=== PATIENT | female | born 1965 | race Caucasian/White ===

== ENCOUNTER → 2020-06-08 | Outpatient (CLI) | payer MEDICARE ==
[2020-06-08 15:36] VITALS: BP 126/85; PULSE 102; RESP 18; TEMP 97.8; BMI 41.3
--- NOTE | 2020-06-08 15:45 | P.HPBAR ---
Bariatric H&P - History & Physicial H&P Date: 06/08/20 History & Physicial: Visit/CC: initial visit Patient initial contact: Initial weight: Initial weight in pounds: Height: 5 ft 4 iner Initial BMI: Last weight: Current weight: 109.134 kg Current weight in pounds: 240.60 Current BMI: 41.3 [place] body weight (based on NIH guidelines): 54.431 kg Excess body weight loss: The patient is a 54 year-old F who presents for Bariatric Assessment. DATE OF SERVICE: 06/08/2020 REASON FOR CONSULTATION: Initial bariatric evaluation. HISTORY OF PRESENT ILLNESS: Carolyn Farrell is a 54-year-old female who comes with morbid obesity. She has gained most of her weight in last 7 years. Since her hyperparathyroidism, she had gained weight. She reports undergoing physical trauma causing her weight gain. She reports being a size 7 in the past. She has fluctuating weight loss. Her highest weight is present, 250 pounds. She has his prescriptions for weight loss including Adipex with her doctor. She had side effects of palpitation with the medication. Her mother, father, and brother are all over 400+ pounds. She denies personal or family history of stomach or esophageal cancer. She had her gallbladder removed. She denies severe gastroesophageal reflux disease. She reports as a result of her weight gain she had lower back, bilateral hip pain, and bilateral knee pain. She sees a [place] urologist for her chronic pain needs. She denies past history of DVT and is thrombosis. She has easy bruising. She smokes occasionally cigarettes. She is looking into the sleeve gastrectomy. She presents first time in consultation for surgical weight loss options. At height of 5 feet 4 inches, her ideal body weight is 144 pounds. She comes in 250 pounds, BMI 41.3. She is 96 pounds overweight. PAST MEDICAL HISTORY: 1. Morbid obesity due to excess calories 2. Body mass index of 41.3, initial 3. Hypothyroidism 4. Depressive disorder 5. Osteoarthritis of the lower back 6. Osteoarthritis bilateral hips 7. Osteoarthritis bilateral knees PAST SURGICAL HISTORY: 1. Cholecystectomy 2. Heart catheterization 3. Hysterectomy 4. Tonsillectomy 5. Laminectomy HOME MEDICATIONS: Home Medications Medication Instructions Recorded Confirmed DULoxetine HCL [Cymbalta] 60 mg PO DAILY 06/08/20 06/08/20 Levothyroxine Sodium [Synthroid] 112 mcg PO DAILY 06/08/20 06/08/20 traMADol HCl [Ultram] 50 mg PO Q6HR PRN 06/08/20 06/08/20 ALLERGIES: Allergies Allergy/AdvReac Type Severity Reaction Status Date / Time Penicillins Allergy Rash/Hives Verified 06/08/20 15:27 SOCIAL HISTORY: Past tobacco use. FAMILY HISTORY: No family history of ulcerative colitis disease or Crohn's disease. Family history of morbid obesity. No lupus in the family. No reports of stomach or esophageal cancer. REVIEW OF ORGAN SYSTEMS: CONSTITUTIONAL: HEENT: Denies any active troubles with vision or hearing. ENDOCRINE: Denies diabetes. Has hypothyroidism. CARDIOVASCULAR: Past reports of palpitations or heart attacks or chest pain. Has hypertensive heart disease. RESPIRATORY: Has daytime somnolence. Has asthma. Has chronic obstructive pulmo nary disease. GASTROINTESTINAL: Denies any bright red blood per rectum. No diarrhea. No constipation. GENITOURINARY: Denies bladder urgency. No recent blood in urine MUSCULOSKELETAL: Has lower back pain and joint pain. Has osteoarthritis of the knees. NEURO: No headaches. No seizure disorders. Has neuropathy. PSYCH: Has depression. No suicidal ideation. RHEUMATOLOGIC: No lupus. No rheumatoid arthritis. HEMATOLOGIC: Denies any abnormal bleeding or bruising. SKIN: No rash. No skin cancer. PHYSICAL EXAM: VITAL SIGNS: Height 5 foot 4 inches, weight 240 pounds. BMI 41.3 Vital Signs Temp 97.8 F 06/08/20 15:26 Pulse 102 H 06/08/20 15:26 Resp 18 06/08/20 15:26 BP 126/85 06/08/20 15:26 Pulse Ox GENERAL: Well-developed in no acute distress. HEENT: No scleral icterus. Extraocular movements grossly intact. Hears conversational speech. No nasal drainage. NECK: Supple without lymphadenopathy. CHEST: Nonlabored respirations with equal bilateral excursions. CARDIOVASCULAR: Tachycardic. Distal 2+ pulses. ABDOMEN: Obese, soft, nontender, nondistended. MUSCULOSKELETAL: No clubbing, cyanosis. NEURO: No focal or lateralizing signs. Cranial nerves 2 through 12 grossly within normal limits. PSYCH: Appropriate affect. Alert and oriented to person, place and time. SKIN: Good skin turgor. Well perfused. ASSESSMENT: 1. Morbid obesity due to excess calories 2. Body mass index of 41.3, initial 3. Hypothyroidism 4. Depressive disorder 5. Osteoarthritis of the lower back 6. Osteoarthritis bilateral hips 7. Osteoarthritis bilateral knees PLAN: 1. Surgical options including a band, gastric bypass, sleeve gastrectomy were described in detail. Alternatives such as gastric balloon including duodenal switch were described. She is looking into the sleeve gastrectomy. 2. The [place] bariatric surgical collaborative data and outcomes calculator were described with surgical options. 3. Recommend a bariatric metabolic panel to evaluate for micro- including macronutrient deficiencies. 4. For any history of daytime somnolence, recommend evaluation and treatment for sleep apnea. 5. Dietary surveillance and counseling was reviewed. Increased protein intake over 65 grams daily advised. 6. Will need cardiac risk assessment. 7. Recommend medical risk assessment. 8. Psych assessment per insurance guidelines. 9. Recommend upper endoscopy. 10. Recommend 12-lead EKG. 11. She is advised to be seen for her joint pain and arthritis of the spine. 12. Recommend urine nicotine testing metabolites 13. Patient is elevated risk for complications including with upper endoscopy and weight loss surgery for pre-existing history of active tobacco abuse disorder Past Medical History Past Medical History: Atrial Flutter, GERD/Reflux, Osteoarthritis (OA), Thyroid Disorder Additional Past Medical History / Comment(s): a-flutter d/t thyroid issues; buristis, spinal arthritis; DDD; hypothroidism History of Any Multi-Drug Resistant Organisms: None Reported Past Surgical History: Back Surgery, Cholecystectomy, Heart Catheterization, Hysterectomy, Orthopedic Surgery, Tonsillectomy Additional Past Surgical History / Comment(s): laminectomy 1991; heart cath Past Anesthesia/Blood Transfusion Reactions: No Reported Reaction Past Psychological History: No Psychological Hx Reported Additional Psychological History / Comment(s): no issues since thyroid issues Smoking Status: Former smoker Past Alcohol Use History: Rare Past Drug Use History: None Reported Surgical - Exam Vital Signs Temp Pulse Resp BP 97.8 F 102 H 18 126/85 06/08/20 15:26 06/08/20 15:26 06/08/20 15:26 06/08/20 15:26 Results - Labs 06/08/20 16:12 06/08/20 16:12 Bariatric Checklist Checklist: Plan: Checklist: EGD: 1. Hiatal hernia: 2. H. Pylori: HgbA1c: Vitamin D: Smoking: Primary care physician referral: Dr. Nicholson Psychiatry clearance: Cardiology clearance: Sleep study: Diet journal: VTE risk score: VTE risk level: Rehab needs at discharge:
[2020-06-08 16:41] LABS: HCT 40.3 % (34.0-46.0); HGB 13.5 gm/dL (11.4-16.0); MCH 30.5 pg (25.0-35.0); MCHC 33.6 g/dL (31.0-37.0); MCV 90.7 fL (80.0-100.0); Mean Platelet Volume 7.6; Platelet Count 310 k/uL (150-450); RBC 4.44 m/uL (3.80-5.40); WBC 11.3 k/uL (3.8-10.6)
[2020-06-09 00:17] LABS: INR 0.86 (0.90-1.11); Partial Thromboplastin Time 25.4 sec (23.5-31.0); Prothrombin Time 9.5 sec (9.9-11.9)
[2020-06-09 03:48] LABS: % Iron Saturation 27.13 (12.00-45.00); African American GFR (CKD) 115.5 (60.0-200.0); Albumin 3.7 g/dL (3.80-4.90); Albumin/Globulin Ratio 1.54 (1.60-3.17); Anion Gap 6.6 mmol/L (4.00-12.00); BUN/Creat Ratio 18.57 Ratio (12.00-20.00); Calcium 9.6 mg/dL (8.7-10.3); Carbon Dioxide 28.4 mmol/L (21.6-31.8); Chol/HDL Ratio 2.02; Globulin 2.4 g/dL (1.6-3.3); Magnesium 1.9 mg/dL (1.5-2.4); Non-African American GFR(CKD) 99.6 (60.0-200.0); Phosphorus 4.1 mg/dL (2.4-5.1); Potassium 4.3 mmol/L (3.5-5.5); Total Bilirubin 0.3 mg/dL (0.3-1.2); Total Protein 6.1 g/dL (6.2-8.2)
[2020-06-09 03:58] LABS: Folate, Serum 5.8 ng/mL
[2020-06-09 04:02] LABS: Ferritin 11.4 ng/mL (10.0-291.0)
[2020-06-09 11:18] LABS: Hemoglobin A1C 5.3 % (4.0-6.0)
[2020-06-09 15:47] LABS: Zinc, Serum 45 ug/dL (60-130)
[2020-06-10 13:58] LABS: Vit B1(Thiamine) 68 ug/L (38-122)
[2020-06-10 14:11] LABS: Vitamin A 46 ug/dL (38-106)
[2020-06-13 18:29] LABS: Selenium 131 mcg/L (63-160)
== END | disposition home or self-care (01) ==
LOC: EDBD 14:30 → BARWHC3 14:38
PROVIDERS: ATTEND Surgery Plastic and Reconstructive Surgery
DX: E66.01 Morbid (severe) obesity due to excess calories (principal); E03.9 Hypothyroidism, unspecified; F32.9 Major depressive disorder, single episode, unspecified; M47.9 Spondylosis, unspecified; M17.0 Bilateral primary osteoarthritis of knee; M16.0 Bilateral primary osteoarthritis of hip; D50.8 Other iron deficiency anemias; K90.89 Other intestinal malabsorption; E55.9 Vitamin D deficiency, unspecified; K74.1 Hepatic sclerosis; N19 Unspecified kidney failure; K50.90 Crohn's disease, unspecified, without complications; Z68.41 Body mass index [BMI] 40.0-44.9, adult; Z88.0 Allergy status to penicillin; Z79.890 Hormone replacement therapy; Z79.899 Other long term (current) drug therapy; Z90.49 Acquired absence of other specified parts of digestive tract; Z90.710 Acquired absence of both cervix and uterus
CPT/HCPCS: 84255; 84134; 84425; 80061; 80053; 82607; 82728; 82525; 82746; 83540; 83550; 83735; 84100; 84443; 84590; 84630; 85027; 85610; 85730; 82306; 83970; 83036; 93005; 36415; G0463; 99203

== ENCOUNTER 2020-12-21 19:27 | Inpatient (IN) | payer MEDICARE ==
[2020-12-21] MEDS ORDERED: MORPHINE SULFATE 4 MG/ML SYRINGE IVP STA (19:53)
--- NOTE | 2020-12-21 20:14 | ED ---
General Adult HPI - General Source: patient, RN notes reviewed Mode of arrival: ambulatory Limitations: no limitations <Sergei Wiseman - Last Filed: 12/21/20 21:43> <Aric Santos - Last Filed: 12/21/20 23:47> - General Chief complaint: Skin/Abscess/Foreign Body Stated complaint: Infection,Transfer from [facility] Time Seen by Provider: 12/21/20 19:44 - History of Present Illness Initial comments: Patient is a 54-year-old female that presents to emergency department via transfer from [facility] for a right breast cellulitis. She notes that they gave her IV antibiotics and pain medication but it is still extremely painful. She notes that she did have breast surgery approximately 30 years ago for reduction. She notes that it feels like the bump is pushing on the scar tissue increase the pain. She'll the pain is approximately 10 out of 10 with no relief. She denied any other issues or complaints at this time. She was otherwise a well-appearing 55-year-old female no apparent distress or pain. She denied any chest pain first breath headache nausea vomiting diarrhea constipation fever fatigue chills. (Sergei Wiseman) - Related Data Home Medications Medication Instructions Recorded Confirmed DULoxetine HCL [Cymbalta] 60 mg PO BID 06/08/20 12/21/20 Levothyroxine Sodium [Synthroid] 112 mcg PO DAILY 06/08/20 12/21/20 Ibuprofen 800 mg PO Q8H PRN 12/21/20 12/21/20 Metoprolol Succinate (ER) [Toprol 25 mg PO DAILY 12/21/20 12/21/20 Xl] Sulfamethoxazole/Trimethoprim 1 tab PO BID 12/21/20 12/21/20 [Sulfamethoxazole-Tmp Ds Tablet] Allergies Allergy/AdvReac Type Severity Reaction Status Date / Time Penicillins Allergy Rash/Hives Verified 12/21/20 20:02 Review of Systems ROS Other: All systems not noted in ROS Statement are negative. <Sergei Wiseman - Last Filed: 12/21/20 21:43> ROS Other: All systems not noted in ROS Statement are negative. <Aric Santos - Last Filed: 12/21/20 23:47> ROS Statement: Those systems with pertinent positive or pertinent negative responses have been documented in the HPI. Past Medical History Past Medical History: Atrial Flutter, GERD/Reflux, Osteoarthritis (OA), Thyroid Disorder Additional Past Medical History / Comment(s): a-flutter d/t thyroid issues; buristis, spinal arthritis; DDD; hypothroidism History of Any Multi-Drug Resistant Organisms: None Reported Past Surgical History: Back Surgery, Cholecystectomy, Heart Catheterization, Hysterectomy, Orthopedic Surgery, Tonsillectomy Additional Past Surgical History / Comment(s): laminectomy 1991; heart cath Past Anesthesia/Blood Transfusion Reactions: No Reported Reaction Past Psychological History: No Psychological Hx Reported Smoking Status: Light tobacco smoker Past Alcohol Use History: Rare Past Drug Use History: None Reported <Sergei Wiseman - Last Filed: 12/21/20 21:43> General Exam Limitations: no limitations General appearance: alert, in no apparent distress, obese Head exam: Present: atraumatic, normocephalic, normal inspection Eye exam: Present: normal appearance, PERRL, EOMI. Absent: scleral icterus, conjunctival injection, periorbital swelling Neck exam: Present: normal inspection Respiratory exam: Present: normal lung sounds bilaterally. Absent: respiratory distress, wheezes, rales, rhonchi, stridor Cardiovascular Exam: Present: regular rate, normal rhythm, normal heart sounds. Absent: systolic murmur, diastolic murmur, rubs, gallop, clicks Extremities exam: Present: normal inspection, full ROM, normal capillary refill. Absent: tenderness, pedal edema, joint swelling, calf tenderness Neurological exam: Present: alert, oriented X3 Psychiatric exam: Present: normal affect, normal mood Skin exam: Present: warm, dry, intact, normal color, erythema (Inferior lateral right breast). Absent: rash Expanded Type of lesion: Present: abscess (Inferior right breast in old surgical scar, tender, erythematous. Measuring approximately 3-4 inches.) <Sergei Wiseman - Last Filed: 12/21/20 21:43> Course Vital Signs 12/21/20 12/21/20 19:37 23:00 Temperature 98.5 F 98.4 F Pulse Rate 75 70 Respiratory 18 18 Rate Blood Pressure 152/78 112/77 O2 Sat by Pulse 96 97 Oximetry Medical Decision Making - Radiology Data Radiology results: report reviewed, image reviewed <Sergei Wiseman - Last Filed: 12/21/20 21:43> <Aric Santos - Last Filed: 12/21/20 23:47> - Medical Decision Making 55-year-old female with a right breast cellulitis/abscess. 4 mg morphine, ultrasound of the right breast ordered. Ultrasound shows a 3 cm fluid collection in the right breast at 6 o'clock position. 1 mg of Dilaudid ordered for continuing pain. Case discussed with Dr. Santos, patient will be admitted for IV antibiotics and surgical consult. Dr. Jackson was consulted and will except the admit with Dr. Ramez Quiroz on consult. Vancomycin ordered. (Sergei Wiseman) The patient's ultrasound showed a 3 cm fluid collection in the right breast at 6 o'clock position with vascularity, and therefore I&D will be deferred until evaluation by surgery. Patient will be started on IV antibiotics and admitted to the hospital. (Aric Santos) - Radiology Data 3 cm complex area within the right breast at 6 o'clock position, compatible with abscess in the appropriate clinical setting. Recommend follow-up after treatment/posterior is to document resolution and exclude any underlying etiology. (Sergei Wiseman) Disposition Is patient prescribed a controlled substance at d/c from ED?: No Time of Disposition: 21:48 <Sergei Wiseman - Last Filed: 12/21/20 21:43> <Aric Santos - Last Filed: 12/21/20 23:47> Clinical Impression: Abscess of right breast Disposition: ADMITTED IP TO THIS HOSP Condition: Stable
[2020-12-21] MEDS ORDERED: PANTOPRAZOLE 40 MG/10 ML VIAL IVP STA (20:39)
--- NOTE | 2020-12-21 21:18 | USB ---
EXAMINATION TYPE: US breast limited RT DATE OF EXAM: 12/21/2020 COMPARISON: NONE CLINICAL HISTORY: pain/cellulitis. Yellowish palpable lump right breast. Patient states she drained p us from the area earlier in the week. At the patient's palpable area, right breast 6:00B, there is a complex, hypoechoic area visualized me asuring 3.2 x 2.3 x 3.0 cm with vascularity. IMPRESSION: 3 cm complex area within the right breast at 6:00 position, compatible with abscess in the appropriat e clinical setting. Recommend follow-up after treatment/post drainage to document resolution and excl ude any underlying etiology.
[2020-12-21] MEDS ORDERED: HYDROmorphone 1 MG/ML 1 ML SYRINGE IVP STA (21:40)
[2020-12-21] MEDS ORDERED: VANCOMYCIN IV PER PHARMACY 1 EACH MISC MISCELLANE PRN (21:40)
[2020-12-21] MEDS ORDERED: SODIUM CHLORIDE 0.9% 1,000 ML IV STA (21:41)
[2020-12-21] MEDS ORDERED: NALOXONE 0.4 MG/ML 1 ML VIAL IV PRN (21:41)
[2020-12-21] MEDS ORDERED: VANCOMYCIN 1,750 MG in SODIUM CHLORIDE 0.9% 500 ML 500 ML IVPB ONE (22:30)
[2020-12-22] MEDS: HYDROmorphone 1 MG/ML 1 ML SYRINGE IVP PRN ×6 (01:01→18:05)
[2020-12-22] MEDS ORDERED: diphenhydrAMINE 25 MG CAP PO STA (01:36)
[2020-12-22] MEDS ORDERED: ACETAMINOPHEN TAB 325 MG TAB PO STA (04:23)
[2020-12-22] MEDS ORDERED: VANCOMYCIN 1,750 MG in SODIUM CHLORIDE 0.9% 500 ML 500 ML IVPB SCH (06:00)
[2020-12-22 08:38] LABS: African American GFR (CKD) >90 (>60 ml/min/1.73 sqM); Non-African American GFR(CKD) >90 (>60 ml/min/1.73 sqM)
[2020-12-22] MEDS ORDERED: PANTOPRAZOLE 40 MG/10 ML VIAL IV SCH (09:00)
[2020-12-22] MEDS: SODIUM CHLORIDE 0.9% 1,000 ML IV SCH ×4 (09:33→19:58)
[2020-12-22] MEDS: METOPROLOL SUCCINATE (ER) 25 MG TAB.ER.24H PO SCH (11:19)
[2020-12-22] MEDS: ENOXAPARIN 40 MG/0.4 ML SYRINGE SQ SCH (11:19)
[2020-12-22] MEDS: DULoxetine HCL 60 MG CAPSULE.DR PO SCH ×2 (11:19→19:57)
[2020-12-22] MEDS: LEVOTHYROXINE 112 MCG TAB PO SCH (11:20)
[2020-12-22] MEDS ORDERED: CALCIUM CARBONATE 500 MG CHEWABLE PO PRN (13:29)
[2020-12-22] MEDS ORDERED: ONDANSETRON 4 MG/2 ML VIAL IVP PRN (13:29)
[2020-12-22] MEDS ORDERED: MELATONIN 3 MG TABLET PO PRN (13:29)
[2020-12-22] MEDS ORDERED: LACTULOSE 20 GM/30 ML CUP PO PRN (13:29)
--- NOTE | 2020-12-22 14:33 | P.GSHP ---
History of Present Illness H&P Date: 12/22/20 Chief Complaint: Abscess right breast Carolyn is a 55-year-old white female who states several days ago she noticed a pimple like area in the inferior aspect of her right breast. This became increasingly tender and reddened with increased erythema over the inferior aspec t of the breast. This has not drained at all. The patient did have some fever and chills. The patient was started on outpatient Bactrim without any resolution. She was seen in [place] and sent to our emergency room. The patient did have a reduction mammoplasty at the age of 37. The patient has not had a mammogram for approximately 2 years. Patient had an ultrasound performed and 98 this revealed a 3 cm complex area within the right breast at the 6 o'clock position Caffeine: 2 cups per day Nicotine: Occasional Chocolate: Occasional Past surgical history: Breast reduction Cholecystectomy Laminectomy Tonsillectomy Hysterectomy Medical history: Arthritis Hypothyroid Hormonal history: Menarche: 14 , 3, patient had twins, and 10 age of first 24, control pills: Short time Menopause: Hysterectomy at 30 Social history: Nicotine: Negative Alcohol: Negative Marijuana: Negative - Constitutional Constitutional: Reports chills - EENT Eyes: denies blurred vision, denies pain Ears: deny: decreased hearing - Breasts Breasts: bilateral: as per HPI - Cardiovascular Cardiovascular: Denies chest pain, Denies shortness of breath - Respiratory Respiratory: Denies cough, Denies 7 - Gastrointestinal Gastrointestinal: Denies abdominal pain, Denies diarrhea, Denies nausea, Denies vomiting - Genitourinary (Female) Genitourinary: Denies dysuria, Denies hematuria - Menstruation Menstruation: Reports post hysterectomy - Musculoskeletal Comment: Arthritis - Integumentary Comment: Cellulitis right breast with abscess and inferior aspect of right breast - Neurological Neurological: Denies numbness, Denies weakness - Psychiatric Psychiatric: Denies anxiety, Denies depression - Hematologic/Lymphatic Comment: Negative Past Medical History Past Medical History: Atrial Flutter, GERD/Reflux, Osteoarthritis (OA), Thyroid Disorder Additional Past Medical History / Comment(s): a-flutter d/t thyroid issues; buristis, spinal arthritis; DDD; hypothroidism History of Any Multi-Drug Resistant Organisms: None Reported Past Surgical History: Back Surgery, Cholecystectomy, Heart Catheterization, Hysterectomy, Orthopedic Surgery, Tonsillectomy Additional Past Surgical History / Comment(s): laminectomy 1991; heart cath Past Anesthesia/Blood Transfusion Reactions: No Reported Reaction Past Psychological History: No Psychological Hx Reported Smoking Status: Light tobacco smoker Past Alcohol Use History: Rare Past Drug Use History: None Reported Medications and Allergies Home Medications Medication Instructions Recorded Confirmed Type DULoxetine HCL [Cymbalta] 60 mg PO BID 06/08/20 12/21/20 History Levothyroxine Sodium [Synthroid] 112 mcg PO DAILY 06/08/20 12/21/20 History Ibuprofen 800 mg PO Q8H PRN 12/21/20 12/21/20 History Metoprolol Succinate (ER) [Toprol 25 mg PO DAILY 12/21/20 12/21/20 History Xl] Sulfamethoxazole/Trimethoprim 1 tab PO BID 12/21/20 12/21/20 History [Sulfamethoxazole-Tmp Ds Tablet] Allergies Allergy/AdvReac Type Severity Reaction Status Date / Time Penicillins Allergy Rash/Hives Verified 12/21/20 20:02 Surgical - Exam Vital Signs Temp Pulse Resp BP Pulse Ox 98.5 F 75 18 152/78 96 12/21/20 19:37 12/21/20 19:37 12/21/20 19:37 12/21/20 19:37 12/21/20 19:37 BMI 41.2 - General moderate distress - Eyes normal ocular movement - ENT no hearing loss, no congestion - Neck no masses - Respiratory normal respiratory effort, clear to auscultation - Cardiovascular Heart Sounds: normal: S1, S2 - Abdomen Abdomen: soft, non tender, no guarding, no rigid, no rebound - Integumentary Cellulitis inferior aspect right breast - Neurologic no disoriented, no combative - Psychiatric oriented to time, oriented to person, oriented to place, speech is normal, memory intact Breast examination: Patient status post reduction mammoplasty bilaterally Inspection: Cellulitis right breast inferior aspect Palpation: Right breast: Patient is noted to have marked tenderness and cellulitis of the inferior aspect of the breast, there is fluctuance in the inferior aspect consistent with an abscess Right axilla: No adenopathy of concern Left breast: Well-healed scars from prior reduction mammoplasty no dominant masses or nodules of concern Left axilla: No adenopathy of concern Results - Labs 12/22/20 07:44 Diabetes panel 12/22/20 Range/Units 07:44 Creatinine 0.58 (0.52-1.04) mg/dL Pituitary panel 12/22/20 Range/Units 07:44 Creatinine 0.58 (0.52-1.04) mg/dL Adrenal panel 12/22/20 Range/Units 07:44 Creatinine 0.58 (0.52-1.04) mg/dL Assessment and Plan Assessment: Impression: Abscess/cellulitis right breast Patient has recently eaten Plan: Incision and drainage of abscess right breast Medical management of medical conditions Risks and benefits of incision and drainage are discussed with the patient. She understands and wishes to proceed. Her ultrasound will be reviewed with radiology to see if this could be drained percutaneously.
[2020-12-22] MEDS ORDERED: ACETAMINOPHEN TAB 325 MG TAB PO PRN (14:36)
--- NOTE | 2020-12-22 14:52 | P.HPIM ---
History of Present Illness H&P Date: 12/22/20 Chief Complaint: Right breast infection History of presenting complaint: This is a pleasant 55-year-old patient of Dr. Nii Best. Chronic stable medical conditions include atrial flutter, GERD, osteoarthritis, hypothyroid, DJD. Patient has history of bilateral reduction mammoplasty many years ago. About a week ago patient noticed a bump below the right breast. She squeezed at it broke. It progressed to become more tender and red. She finally presented to the ER and was given Bactrim. Symptoms do not improve. Yesterday she went down to see her family doctor, Dr. Best. She been having chills and some nausea. Very tender. He sent her down to the ER. Patient does not remember any local trauma. Does not wear bra. Review of systems: GEN.: Chills EYES: None HEENT: None NECK: None RESPIRATORY: None CARDIOVASCULAR: None GASTROINTESTINAL: None GENITOURINARY: None MUSCULOSKELETAL: Joint pains LYMPHATICS: None HEMATOLOGICAL: None PSYCHIATRY: None NEUROLOGICAL: None Past medical history to include: Atrial flutter, GERD, osteoarthritis, hypothyroid, spinal arthritis, back surgery with laminectomy 1991 Social history: Occasional smoking. Alcohol rarely. 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 Family history: Reviewed, noncontributory to presentation Physical examination: VITAL SIGNS: 98, 100, 22, 108/54, 98% on room air GENERAL: BMI 41.2, laying in bed, slightly uncomfortable. EYES: Pupils equal. Conjunctiva normal. HEENT: External appearance of nose and ears normal, oral cavity grossly normal. NECK: JVD not raised; masses not palpable. HEART: First and second heart sounds are normal; no edema. BREAST: There is area of fluctuation at the inferior part of the right breast. Very tender. Surrounding area of redness extending up towards and on both the sides. LUNGS: Respiratory rate normal; clear to auscultation. ABDOMEN: Soft, nontender, liver spleen not palpable, no masses palpable. PSYCH: Alert and oriented x3; mood and affect normal. NEUROLOGICAL: Cranial nerves grossly intact; no facial asymmetry, power and se nsation grossly intact. LYMPHATICS: No lymph nodes palpable in the axilla and neck INVESTIGATIONS, reviewed in the clinical context: Creatinine 0.58 Assessment and plan: -Acute right breast abscess with the area of fluctuation. In the inferior part. Has been feeling outpatient treatment. With secondary surrounding cellulitis. This will need I&D. Dr. Monterroso was consulted. Patient did receive IV vancomycin the ER last night and had some epidural evidence of red man syndrome. Given no risk factors daily for MRSA the patient is being changed over to IV Ancef. ID consulted. -Hypothyroid Synthroid 112 g daily -Anxiety Cymbalta 60 mg twice a day -Paroxysmal atrial flutter Toprol-XL 25 mg daily Care was discussed with the patient. Local ice pack is given. Also Dilaudid when necessary. Naproxen 250 mg every 8. Consultation to Dr. Monterroso. ID. Lovenox for DVT prophylaxis. Patient will need I&D. Past Medical History Past Medical History: Atrial Flutter, GERD/Reflux, Osteoarthritis (OA), Thyroid Disorder Additional Past Medical History / Comment(s): a-flutter d/t thyroid issues; buristis, spinal arthritis; DDD; hypothroidism History of Any Multi-Drug Resistant Organisms: None Reported Past Surgical History: Back Surgery, Cholecystectomy, Heart Catheterization, Hysterectomy, Orthopedic Surgery, Tonsillectomy Additional Past Surgical History / Comment(s): laminectomy 1991; heart cath Past Anesthesia/Blood Transfusion Reactions: No Reported Reaction Past Psychological History: No Psychological Hx Reported Smoking Status: Light tobacco smoker Past Alcohol Use History: Rare Past Drug Use History: None Reported Medications and Allergies Home Medications Medication Instructions Recorded Confirmed Type DULoxetine HCL [Cymbalta] 60 mg PO BID 06/08/20 12/21/20 History Levothyroxine Sodium [Synthroid] 112 mcg PO DAILY 06/08/20 12/21/20 History Ibuprofen 800 mg PO Q8H PRN 12/21/20 12/21/20 History Metoprolol Succinate (ER) [Toprol 25 mg PO DAILY 12/21/20 12/21/20 History Xl] Sulfamethoxazole/Trimethoprim 1 tab PO BID 12/21/20 12/21/20 History [Sulfamethoxazole-Tmp Ds Tablet] Allergies Allergy/AdvReac Type Severity Reaction Status Date / Time Penicillins Allergy Rash/Hives Verified 12/21/20 20:02 Physical Exam Vitals: Vital Signs Temp Pulse Resp BP Pulse Ox 12/22/20 10:05 98.6 F 82 18 97/63 100 12/22/20 07:00 98 F 100 22 108/54 98 12/22/20 06:00 77 20 105/64 98 12/22/20 04:00 87 22 117/70 100 12/22/20 03:00 98.2 F 73 18 121/71 97 12/22/20 01:00 73 18 96/65 100 12/21/20 23:00 98.4 F 70 18 112/77 97 12/21/20 19:37 98.5 F 75 18 152/78 96 Intake and Output 12/21/20 12/22/20 12/22/20 22:59 06:59 14:59 Other: Weight 108.862 kg Results CBC & Chem 7: 12/22/20 07:44
[2020-12-22] MEDS: NAPROXEN 250 MG TAB PO SCH ×2 (15:50→19:56)
[2020-12-22] MEDS: LORazepam 0.5 MG TAB PO PRN (19:57)
--- NOTE | 2020-12-22 22:04 | P.CONS ---
History of Present Illness - Reason for Consult Consult date: 12/22/20 right breast abscess Requesting physician: Ming Jackson - Chief Complaint right breast pain and redness x 1 week - History of Present Illness History of present illness : Patient is 55 female presenting to the ER last night for evaluation of right breast pain swelling and redness apparently the patient started having a problem with the right breast about a week ago when the patient noticed there was a small bump on the right breast area the patient squeeze it broke afterwards the patient noticed to having increasing swelling redness and pain to the right breast area patient was seen at [facility] and was treated with Bactrim however the patient did not have any improvement patient went to see her primary care physician yesterday who directed the patie nt to go back to the ER the patient went to [facility] she was subsequently transferred to [facility] for further evaluation on arrival to this ER the patient was afebrile patient did have a normal creatinine ultrasound of the breast has been done which did shows 3 cm complex area right breast at 6 o'clock position patient was given vancomycin last time the patient did develop "red man" syndrome NSAID was discontinued and ID was consulted for further management of antibiotic therapy patient has been evaluated by general surgery with a plan for drainage of this abscess in the morning Review of system: CONSTITUTIONAL: Positive for weakness along with the fever. EYES: No complaint. ENT: No complaint. RESPIRATORY: No complaint. CARDIOVASCULAR: No complaint. GENITOURINARY: No complaint. GASTROINTESTINAL: No complaint. MUSCULOSKELETAL: No complaint. INTEGUMENTARY: As per history of present illness. PSYCHOLOGIC: No complaint. ENDOCRINE: No complaint. NEUROLOGIC: No complaint. Past medical history : Reviewed, documented below Past surgical history : Reviewed, documented below Social history: Reviewed, documented below Medications: Reviewed, as documented below EXAMINATION: Vital sigans= Reviewed and documented below GENERAL DESCRIPTION: Middle-aged female lying in bed, no distress. No tachypnea or accessory muscle of respiration use. HEENT: Shows Pallor , no scleral icterus. Oral mucous membrane is dry. NECK: Trachea central, no thyromegaly. LUNGS: Unlabored breathing. Clear to auscultation anteriorly. No wheeze or crackle. HEART: S1, S2, regular rate and rhythm. ABDOMEN: Soft, no tenderness , guarding or rigidity EXTREMITIES: No edema of feet. SKIN: No rash, no masses palpable. Right breast did have swelling redness and tenderness no open wound or any drainage NEUROLOGICAL: The patient is awake, alert, oriented x3, mood and affect normal. LABS AND RADIOLOGY: Reviewed results see below Assessment : 1-Patient with right breast abscess and cellulitis in this patient has failed outpatient oral Bactrim DS therapy and seem to have a "red man" syndrome with vancomycin infused during the ER in this patient currently do not have any risk factor for MRSA infection as has not been exposed with antibiotic and could be dealing with a streptococcal or an MSSA strain 2-patient with a penicillin allergy that would limit the number of antibiotics safe to use Plan: 1-await surgical I&D and deep culture 2-cefazolin 2 g every 8 hours We will follow on clinical condition and cultures to further adjust medication if needed Thank you for this consultation we will follow the patient along with you Past Medical History Past Medical History: Atrial Flutter, GERD/Reflux, Osteoarthritis (OA), Thyroid Disorder Additional Past Medical History / Comment(s): a-flutter d/t thyroid issues; buristis, spinal arthritis; DDD; hypothroidism History of Any Multi-Drug Resistant Organisms: None Reported Past Surgical History: Back Surgery, Cholecystectomy, Heart Catheterization, Hysterectomy, Orthopedic Surgery, Tonsillectomy Additional Past Surgical History / Comment(s): laminectomy 1991; heart cath Past Anesthesia/Blood Transfusion Reactions: No Reported Reaction Past Psychological History: No Psychological Hx Reported Smoking Status: Light tobacco smoker Past Alcohol Use History: Rare Past Drug Use History: None Reported Medications and Allergies Home Medications Medication Instructions Recorded Confirmed Type DULoxetine HCL [Cymbalta] 60 mg PO BID 06/08/20 12/21/20 History Levothyroxine Sodium [Synthroid] 112 mcg PO DAILY 06/08/20 12/21/20 History Ibuprofen 800 mg PO Q8H PRN 12/21/20 12/21/20 History Metoprolol Succinate (ER) [Toprol 25 mg PO DAILY 12/21/20 12/21/20 History Xl] Sulfamethoxazole/Trimethoprim 1 tab PO BID 12/21/20 12/21/20 History [Sulfamethoxazole-Tmp Ds Tablet] Allergies Allergy/AdvReac Type Severity Reaction Status Date / Time Penicillins Allergy Rash/Hives Verified 12/21/20 20:02 Physical Exam Vitals: Vital Signs Temp Pulse Resp BP Pulse Ox 12/22/20 11:27 75 18 134/84 100 12/22/20 10:05 98.6 F 82 18 97/63 100 12/22/20 07:00 98 F 100 22 108/54 98 12/22/20 06:00 77 20 105/64 98 12/22/20 04:00 87 22 117/70 100 12/22/20 03:00 98.2 F 73 18 121/71 97 12/22/20 01:00 73 18 96/65 100 12/21/20 23:00 98.4 F 70 18 112/77 97 12/21/20 19:37 98.5 F 75 18 152/78 96 Intake and Output 12/21/20 12/22/20 12/22/20 22:59 06:59 14:59 Other: Weight 108.862 kg Results CBC & Chem 7: 12/22/20 07:44
[2020-12-23] MEDS: HYDROmorphone 1 MG/ML 1 ML SYRINGE IVP PRN ×5 (00:28→23:18)
[2020-12-23] MEDS: LEVOTHYROXINE 112 MCG TAB PO SCH (05:35)
[2020-12-23] MEDS: SODIUM CHLORIDE 0.9% 1,000 ML IV SCH ×3 (05:37→19:46)
[2020-12-23] MEDS: METOPROLOL SUCCINATE (ER) 25 MG TAB.ER.24H PO SCH (08:29)
[2020-12-23] MEDS: PANTOPRAZOLE 40 MG TABLET PO SCH (08:30)
[2020-12-23] MEDS: DULoxetine HCL 60 MG CAPSULE.DR PO SCH ×2 (08:30→19:46)
[2020-12-23] MEDS: ENOXAPARIN 40 MG/0.4 ML SYRINGE SQ SCH (09:26)
[2020-12-23] MEDS: NAPROXEN 250 MG TAB PO SCH ×3 (09:27→19:46)
[2020-12-23] MEDS ORDERED: IV FLUID CONTINUATION 1,000 ML IV ONE (11:22)
[2020-12-23] MEDS ORDERED: ONDANSETRON 4 MG/2 ML VIAL IVP ONE (11:34)
[2020-12-23] MEDS ORDERED: DEXAMETHASONE SOD PHOSPHATE 4 MG/ML 1 ML VIAL IVP ONE (11:35)
[2020-12-23] MEDS ORDERED: LIDOCAINE 1% INJ 10MG/ML (20 ML MDV) ONE (12:22)
[2020-12-23] MEDS ORDERED: MIDAZOLAM 2 MG/2 ML VIAL ONE (12:22)
[2020-12-23] MEDS ORDERED: SUCCINYLCHOLINE CHLORIDE 100 MG/5 ML SYR IV ONE (12:22)
[2020-12-23] MEDS ORDERED: fentaNYL (PF) 50 MCG/ML 2 ML AMP ONE (12:22)
[2020-12-23] MEDS ORDERED: PROPOFOL 10 MG/ML 20 ML VIAL IV ONE (12:22)
--- NOTE | 2020-12-23 12:53 | P.OP ---
Date of Procedure: 12/23/20 Preoperative Diagnosis: Right breast abscess Postoperative Diagnosis: Same Procedure(s) Performed: Incision and drainage of complex abscess Anesthesia: LYLY Surgeon: Jemma Monterroso Estimated Blood Loss (ml): 3 IV fluids (ml): 500 Condition: stable Disposition: floor Indications for Procedure: Abscess right breast Operative Findings: Abscess right breast approximately 15 mL of purulent drainage Description of Procedure: The patient was brought to the operating room and following induction of anesthesia the right breast was prepped and draped in a sterile fashion. An incision was made over the most dependent part of the area of fluctuance in the inferior aspect of the breast. Approximately 15 mL of purulent fluid was drained. The cavity was somewhat septated and blunt dissection was utilized to break down the septations in the cavity. The cavity was approximately 10 cm x 5 cm. The wound was well irrigated with approximately 2000 mL of 0.9 sodium chloride. The wound was then packed using iodoform gauze. The patient tolerated the procedure in stable condition.
[2020-12-23] MEDS: HYDROmorphone 0.5 MG/0.5 ML SYRINGE IVP ONE ×2 (13:13→13:20)
--- NOTE | 2020-12-23 17:25 | P.PN ---
Progress Note - Text Progress Note Date: 12/23/20 Chief Complaint: Right breast infection History of presenting complaint: This is a pleasant 55-year-old patient of Dr. Nii Best. Chronic stable medical conditions include atrial flutter, GERD, osteoarthritis, hypothyroid, DJD. Patient has history of bilateral reduction mammoplasty many years ago. About a week ago patient noticed a bump below the right breast. She squeezed at it broke. It progressed to become more tender and red. She finally presented to the ER and was given Bactrim. Symptoms do not improve. Yesterday she went down to see her family doctor, Dr. Best. She been having chills and some nausea. Very tender. He sent her down to the ER. Patient does not remember any local trauma. Does not wear bra. Admitted with right breast inferior aspect abscess with surrounding cellulitis. Started IV Ancef December 23: Saw the patient this morning. Pain present. Pending to go down to surgery. No nausea vomiting. On IV Ancef. Nothing by mouth. Review of systems: Was done for constitutional, cardiovascular, GI, pulmonary. relevant finding as above Active Medications Acetaminophen (Acetaminophen Tab 325 Mg Tab) 650 mg PO Q6HR PRN PRN Reason: Headache Calcium Carbonate/Glycine (Calcium Carbonate 500 Mg Chewable) 1,000 mg PO Q4HR PRN PRN Reason: Dyspepsia Duloxetine HCl (Duloxetine Hcl 60 Mg Capsule.) 60 mg PO BID [facility] Last Admin: 12/23/20 08:30 Dose: 60 mg Documented by: Enoxaparin Sodium (Enoxaparin 40 Mg/0.4 Ml Syringe) 40 mg SQ DAILY [facility] Last Admin: 12/23/20 09:26 Dose: Not Given Documented by: Hydromorphone HCl (Hydromorphone 1 Mg/Ml 1 Ml Syringe) 1 mg IVP Q3HR PRN PRN Reason: Severe Pain Last Admin: 12/23/20 14:32 Dose: 1 mg Documented by: Sodium Chloride (Saline 0.9%) 1,000 mls @ 130 mls/hr IV .Q7H42M [facility] Last Admin: 12/23/20 15:21 Dose: Not Given Documented by: Cefazolin Sodium 2 gm/ Sodium (Chloride) 50 mls @ 100 mls/hr IVPB Q8HR [facility] Last Admin: 12/23/20 16:12 Dose: 100 mls/hr Documented by: Lactulose (Lactulose 20 Gm/30 Ml Cup) 20 gm PO DAILY PRN PRN Reason: Constipation Levothyroxine Sodium (Levothyroxine 112 Mcg Tab) 112 mcg PO 0630 [facility] Last Admin: 12/23/20 05:35 Dose: 112 mcg Documented by: Lorazepam (Lorazepam 0.5 Mg Tab) 0.5 mg PO Q6HR PRN PRN Reason: Anxiety Last Admin: 12/22/20 19:57 Dose: 0.5 mg Documented by: Magnesium Hydroxide (Magnesium Hydroxide 2,400 Mg/10 Ml Cup) 2,400 mg PO DAILY PRN PRN Reason: Constipation Melatonin (Melatonin 3 Mg Tablet) 3 mg PO HS PRN PRN Reason: Insomnia Metoprolol Succinate (Metoprolol Succinate (Er) 25 Mg Tab.Er.24h) 25 mg PO DAILY [facility] Last Admin: 12/23/20 08:29 Dose: 25 mg Documented by: Naloxone HCl (Naloxone 0.4 Mg/Ml 1 Ml Vial) 0.2 mg IV Q2M PRN PRN Reason: Opioid Reversal Naproxen (Naproxen 250 Mg Tab) 250 mg PO TID [facility] Last Admin: 12/23/20 16:12 Dose: 250 mg Documented by: Ondansetron HCl (Ondansetron 4 Mg/2 Ml Vial) 4 mg IVP Q8HR PRN PRN Reason: Nausea And Vomiting Pantoprazole Sodium (Pantoprazole 40 Mg Tablet) 40 mg PO DAILY [facility] Last Admin: 12/23/20 08:30 Dose: 40 mg Documented by: Past medical history to include: Atrial flutter, GERD, osteoarthritis, hypothyroid, spinal arthritis, back surgery with laminectomy 1991 Social history: Occasional smoking. Alcohol rarely. 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 Family history: Reviewed, noncontributory to presentation Physical examination: VITAL SIGNS: 97.6, 88, 20, 136/72, 95% room air GENERAL: laying in bed, slightly uncomfortable. EYES: Pupils equal. Conjunctiva normal. NECK: JVD not raised; masses not palpable. HEART: First and second heart sounds are normal; no edema. BREAST: There is area of fluctuation at the inferior part of the right breast. Very tender. Surrounding area of redness extending up towards and on both the sides. LUNGS: Respiratory rate normal; clear to auscultation. ABDOMEN: Soft, nontender, liver spleen not palpable, no masses palpable. PSYCH: Alert and oriented x3; mood and affect normal. INVESTIGATIONS, reviewed in the clinical context: Creatinine 0.58 Assessment and plan: -Acute right breast abscess in the inferior aspect with the area of fluctuation. Having failed outpatient treatment IV Ancef. Pending surgery this afternoon. -Acute breast cellulitis in the inferior aspect IV Ancef -Hypothyroid Synthroid 112 g daily -Morbid obesity BMI 41.2 Weight loss measures and follow with PCP -Anxiety Cymbalta 60 mg twice a day -Paroxysmal atrial flutter Toprol-XL 25 mg daily IV Ancef. Discussed with the patient. Later Dr. Monterroso called me. She obtained about 10- 15 mL of pus. Packing was done. This will be need to be done twice daily. Discharge will depend depending on clinical course.
[2020-12-24] MEDS: HYDROmorphone 1 MG/ML 1 ML SYRINGE IVP PRN ×5 (02:44→20:44)
[2020-12-24] MEDS: SODIUM CHLORIDE 0.9% 1,000 ML IV SCH ×2 (03:57→11:39)
[2020-12-24] MEDS: LEVOTHYROXINE 112 MCG TAB PO SCH (05:51)
[2020-12-24] MEDS: DULoxetine HCL 60 MG CAPSULE.DR PO SCH ×2 (07:39→20:42)
[2020-12-24] MEDS: ENOXAPARIN 40 MG/0.4 ML SYRINGE SQ SCH (07:39)
[2020-12-24] MEDS: NAPROXEN 250 MG TAB PO SCH ×3 (07:40→20:42)
[2020-12-24] MEDS: METOPROLOL SUCCINATE (ER) 25 MG TAB.ER.24H PO SCH (07:41)
[2020-12-24] MEDS: PANTOPRAZOLE 40 MG TABLET PO SCH (07:41)
--- NOTE | 2020-12-24 08:38 | XR ---
EXAMINATION TYPE: XR chest 2V DATE OF EXAM: 12/24/2020 COMPARISON: NONE HISTORY: New onset cough. TECHNIQUE: Frontal and lateral views of the chest are obtained. FINDINGS: There is no suspicious focal air space opacity, pleural effusion, or pneumothorax seen. T he cardiac silhouette size is within normal limits. The osseous structures are intact. IMPRESSION: No suspicious acute pulmonary process.
[2020-12-24] MEDS ORDERED: HYDROmorphone 0.5 MG/0.5 ML SYRINGE IVP STA (09:36)
[2020-12-24] MEDS ORDERED: HYDROmorphone 1 MG/ML 1 ML SYRINGE IVP PRN (09:36)
[2020-12-24 13:44] LABS: Basophils % (A) 0 %; Eosinophils # (A) 0.1 k/uL (0-0.7); Eosinophils % (A) 1 %; HCT 35.8 % (34.0-46.0); HGB 11.9 gm/dL (11.4-16.0); Lymphocytes # (A) 2.1 k/uL (1.0-4.8); Lymphocytes % (A) 19 %; MCH 30.6 pg (25.0-35.0); MCHC 33.2 g/dL (31.0-37.0); MCV 92.1 fL (80.0-100.0); Mean Platelet Volume 7.9; Monocytes # (A) 0.7 k/uL (0-1.0); Monocytes % (A) 7 %; Neutrophils # (A) 7.9 k/uL (1.3-7.7); Neutrophils % (A) 72 %; Platelet Count 279 k/uL (150-450); RBC 3.89 m/uL (3.80-5.40); RDW 13.2 % (11.5-15.5); WBC 10.9 k/uL (3.8-10.6)
--- NOTE | 2020-12-24 13:48 | P.PN ---
Progress Note - Text Progress Note Date: 12/24/20 Chief Complaint: Right breast infection History of presenting complaint: This is a pleasant 55-year-old patient of Dr. Nii Best. Chronic stable medical conditions include atrial flutter, GERD, osteoarthritis, hypothyroid, DJD. Patient has history of bilateral reduction mammoplasty many years ago. About a week ago patient noticed a bump below the right breast. She squeezed at it broke. It progressed to become more tender and red. She finally presented to the ER and was given Bactrim. Symptoms do not improve. Yesterday she went down to see her family doctor, Dr. Best. She been having chills and some nausea. Very tender. He sent her down to the ER. Patient does not remember any local trauma. Does not wear bra. Admitted with right breast inferior aspect abscess with surrounding cellulitis. Started IV Ancef December 23: Saw the patient this morning. Pain present. Pending to go down to surgery. No nausea vomiting. On IV Ancef. Nothing by mouth. December 24: Patient having significant pain at the operative site. Dressing change has been carried out. Has been out of bed. Oral intake fair. This discussed with the patient increase activity. Dilaudid dose had to be increased. Also naproxen dose increase. Review of systems: Was done for constitutional, cardiovascular, GI, pulmonary. relevant finding as above Active Medications Acetaminophen (Acetaminophen Tab 325 Mg Tab) 650 mg PO Q6HR PRN PRN Reason: Headache Last Admin: 12/24/20 02:44 Dose: 650 mg Documented by: Calcium Carbonate/Glycine (Calcium Carbonate 500 Mg Chewable) 1,000 mg PO Q4HR PRN PRN Reason: Dyspepsia Duloxetine HCl (Duloxetine Hcl 60 Mg Capsule.) 60 mg PO BID [facility] Last Admin: 12/24/20 07:39 Dose: 60 mg Documented by: Enoxaparin Sodium (Enoxaparin 40 Mg/0.4 Ml Syringe) 40 mg SQ DAILY [facility] Last Admin: 12/24/20 07:39 Dose: 40 mg Documented by: Hydromorphone HCl (Hydromorphone 1 Mg/Ml 1 Ml Syringe) 1 mg IVP Q3HR PRN PRN Reason: Severe Pain Hydromorphone HCl (Hydromorphone 0.5 Mg/0.5 Ml Syringe) 0.5 mg IVP Q3HR PRN PRN Reason: Pain Cefazolin Sodium 2 gm/ Sodium (Chloride) 50 mls @ 100 mls/hr IVPB Q8HR [facility] Last Admin: 12/24/20 07:50 Dose: 100 mls/hr Documented by: Lactulose (Lactulose 20 Gm/30 Ml Cup) 20 gm PO DAILY PRN PRN Reason: Constipation Levothyroxine Sodium (Levothyroxine 112 Mcg Tab) 112 mcg PO 0630 [facility] Last Admin: 12/24/20 05:51 Dose: 112 mcg Documented by: Lorazepam (Lorazepam 0.5 Mg Tab) 0.5 mg PO Q6HR PRN PRN Reason: Anxiety Last Admin: 12/22/20 19:57 Dose: 0.5 mg Documented by: Magnesium Hydroxide (Magnesium Hydroxide 2,400 Mg/10 Ml Cup) 2,400 mg PO DAILY PRN PRN Reason: Constipation Melatonin (Melatonin 3 Mg Tablet) 3 mg PO HS PRN PRN Reason: Insomnia Metoprolol Succinate (Metoprolol Succinate (Er) 25 Mg Tab.Er.24h) 25 mg PO DAILY [facility] Last Admin: 12/24/20 07:41 Dose: 25 mg Documented by: Naloxone HCl (Naloxone 0.4 Mg/Ml 1 Ml Vial) 0.2 mg IV Q2M PRN PRN Reason: Opioid Reversal Naproxen (Naproxen 250 Mg Tab) 500 mg PO TID [facility] Ondansetron HCl (Ondansetron 4 Mg/2 Ml Vial) 4 mg IVP Q8HR PRN PRN Reason: Nausea And Vomiting Pantoprazole Sodium (Pantoprazole 40 Mg Tablet) 40 mg PO DAILY [facility] Last Admin: 12/24/20 07:41 Dose: 40 mg Documented by: Past medical history to include: Atrial flutter, GERD, osteoarthritis, hypothyroid, spinal arthritis, back surgery with laminectomy 1991 Social history: Occasional smoking. Alcohol rarely. 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 Family history: Reviewed, noncontributory to presentation Physical examination: VITAL SIGNS: 97.6, 72, 16, 99/66, 97% room air GENERAL: He planning in bed, comfortable EYES: Pupils equal. Conjunctiva normal. NECK: JVD not raised; masses not palpable. HEART: First and second heart sounds are normal; no edema. BREAST: Dressing over the right breast. LUNGS: Respiratory rate normal; clear to auscultation. ABDOMEN: Soft, nontender, liver spleen not palpable, no masses palpable. PSYCH: Alert and oriented x3; mood and affect normal. INVESTIGATIONS, reviewed in the clinical context: December 24: White count 10.9 hemoglobin 11.9 Wound culture pending Creatinine 0.58 Assessment and plan: -Acute right breast abscess in the inferior aspect with the area of fluctuation. Having failed outpatient treatment Status post I&D by Dr. Rebolledo. IV Ancef. Pending cultures -Acute breast cellulitis in the inferior aspect IV Ancef -Hypothyroid Synthroid 112 g daily -Morbid obesity BMI 41.2 Weight loss measures and follow with PCP -Anxiety Cymbalta 60 mg twice a day -Paroxysmal atrial flutter Toprol-XL 25 mg daily IV Ancef. Discussed with the patient increase activity. Sitting up in a chair. Continue with IV pain medications. DC IV fluids. Oral intake is good.
[2020-12-24] MEDS: HYDROmorphone 0.5 MG/0.5 ML SYRINGE IVP PRN ×2 (15:50→20:45)
[2020-12-25] MEDS: HYDROmorphone 1 MG/ML 1 ML SYRINGE IVP PRN ×7 (00:05→21:56)
[2020-12-25] MEDS: HYDROmorphone 0.5 MG/0.5 ML SYRINGE IVP PRN ×7 (00:05→21:53)
[2020-12-25] MEDS: LEVOTHYROXINE 112 MCG TAB PO SCH (05:29)
--- NOTE | 2020-12-25 07:31 | PN ---
PROGRESS NOTE DATE OF SERVICE: 12/24/2020 REASON FOR FOLLOWUP: Right breast abscess and cellulitis. INTERVAL HISTORY: Patient is afebrile. The patient is breathing comfortably. Overall pain and discomfort to right breast is slightly decreased. No chest pain, shortness of breath or cough. No abdominal pain. No diarrhea. PHYSICAL EXAMINATION: Blood pressure 103/55, pulse of 78, temperature 98.1. She is 97% on room air. General description is a middle-aged female lying in bed in no distress. Respiratory system: Unlabored breathing, clear to auscultation anteriorly. Heart S1, S2. Regular rate and rhythm. Abdomen soft, no tenderness. Right breast is currently packed. LABS: Hemoglobin is 10.1. White count of 10. Cultures currently pending. DIAGNOSTIC IMPRESSION AND PLAN: Patient with right breast abscess status post drainage. Cultures currently pending. Patient to continue with cefazolin. Discharge antibiotic based on culture report. Continue supportive care. MMODL / IJN: [id number] /
[2020-12-25 07:33] LABS: Basophils % (A) 0 %; Eosinophils # (A) 0.2 k/uL (0-0.7); Eosinophils % (A) 3 %; HCT 34.8 % (34.0-46.0); HGB 11.4 gm/dL (11.4-16.0); Lymphocytes # (A) 2.7 k/uL (1.0-4.8); Lymphocytes % (A) 37 %; MCH 30.4 pg (25.0-35.0); MCHC 32.8 g/dL (31.0-37.0); MCV 92.7 fL (80.0-100.0); Mean Platelet Volume 8.2; Monocytes # (A) 0.7 k/uL (0-1.0); Monocytes % (A) 10 %; Neutrophils # (A) 3.6 k/uL (1.3-7.7); Neutrophils % (A) 48 %; Platelet Count 270 k/uL (150-450); RBC 3.75 m/uL (3.80-5.40); RDW 13.2 % (11.5-15.5); WBC 7.4 k/uL (3.8-10.6)
[2020-12-25] MEDS: NAPROXEN 250 MG TAB PO SCH ×3 (07:53→22:15)
[2020-12-25] MEDS: METOPROLOL SUCCINATE (ER) 25 MG TAB.ER.24H PO SCH (07:54)
[2020-12-25] MEDS: ENOXAPARIN 40 MG/0.4 ML SYRINGE SQ SCH (07:54)
[2020-12-25] MEDS: DULoxetine HCL 60 MG CAPSULE.DR PO SCH ×2 (07:55→20:10)
[2020-12-25] MEDS: PANTOPRAZOLE 40 MG TABLET PO SCH (07:55)
--- NOTE | 2020-12-25 14:08 | P.PN ---
Progress Note - Text Progress Note Date: 12/25/20 Chief Complaint: Right breast infection History of presenting complaint: This is a pleasant 55-year-old patient of Dr. Nii Best. Chronic stable medical conditions include atrial flutter, GERD, osteoarthritis, hypothyroid, DJD. Patient has history of bilateral reduction mammoplasty many years ago. About a week ago patient noticed a bump below the right breast. She squeezed at it broke. It progressed to become more tender and red. She finally presented to the ER and was given Bactrim. Symptoms do not improve. Yesterday she went down to see her family doctor, Dr. Best. She been having chills and some nausea. Very tender. He sent her down to the ER. Patient does not remember any local trauma. Does not wear bra. Admitted with right breast inferior aspect abscess with surrounding cellulitis. Started IV Ancef December 23: Saw the patient this morning. Pain present. Pending to go down to surgery. No nausea vomiting. On IV Ancef. Nothing by mouth. December 24: Patient having significant pain at the operative site. Dressing change has been carried out. Has been out of bed. Oral intake fair. This discussed with the patient increase activity. Dilaudid dose had to be increased. Also naproxen dose increase. December 25: Still having pain at the operative site. Some burning sensation. Dressing changes including packing is being done. Cultures are pending. Oral intake good. Has been ambulatory. Review of systems: Was done for constitutional, cardiovascular, GI, pulmonary. relevant finding as above Active Medications Acetaminophen (Acetaminophen Tab 325 Mg Tab) 650 mg PO Q6HR PRN PRN Reason: Headache Last Admin: 12/24/20 02:44 Dose: 650 mg Documented by: Calcium Carbonate/Glycine (Calcium Carbonate 500 Mg Chewable) 1,000 mg PO Q4HR PRN PRN Reason: Dyspepsia Duloxetine HCl (Duloxetine Hcl 60 Mg Emeka.) 60 mg PO BID [facility] Last Admin: 12/25/20 07:55 Dose: 60 mg Documented by: Enoxaparin Sodium (Enoxaparin 40 Mg/0.4 Ml Syringe) 40 mg SQ DAILY [facility] Last Admin: 12/25/20 07:54 Dose: 40 mg Documented by: Hydromorphone HCl (Hydromorphone 1 Mg/Ml 1 Ml Syringe) 1 mg IVP Q3HR PRN PRN Reason: Severe Pain Last Admin: 12/25/20 12:27 Dose: 1 mg Documented by: Hydromorphone HCl (Hydromorphone 0.5 Mg/0.5 Ml Syringe) 0.5 mg IVP Q3HR PRN PRN Reason: Pain Last Admin: 12/25/20 12:26 Dose: 0.5 mg Documented by: Cefazolin Sodium 2 gm/ Sodium (Chloride) 50 mls @ 100 mls/hr IVPB Q8HR [facility] Last Admin: 12/25/20 07:53 Dose: 100 mls/hr Documented by: Lactulose (Lactulose 20 Gm/30 Ml Cup) 20 gm PO DAILY PRN PRN Reason: Constipation Levothyroxine Sodium (Levothyroxine 112 Mcg Tab) 112 mcg PO 0630 [facility] Last Admin: 12/25/20 05:29 Dose: 112 mcg Documented by: Lorazepam (Lorazepam 0.5 Mg Tab) 0.5 mg PO Q6HR PRN PRN Reason: Anxiety Last Admin: 12/22/20 19:57 Dose: 0.5 mg Documented by: Magnesium Hydroxide (Magnesium Hydroxide 2,400 Mg/10 Ml Cup) 2,400 mg PO DAILY PRN PRN Reason: Constipation Melatonin (Melatonin 3 Mg Tablet) 3 mg PO HS PRN PRN Reason: Insomnia Metoprolol Succinate (Metoprolol Succinate (Er) 25 Mg Tab.Er.24h) 25 mg PO DAILY [facility] Last Admin: 12/25/20 07:54 Dose: 25 mg Documented by: Naloxone HCl (Naloxone 0.4 Mg/Ml 1 Ml Vial) 0.2 mg IV Q2M PRN PRN Reason: Opioid Reversal Naproxen (Naproxen 250 Mg Tab) 500 mg PO TID [facility] Last Admin: 12/25/20 07:53 Dose: 500 mg Documented by: Ondansetron HCl (Ondansetron 4 Mg/2 Ml Vial) 4 mg IVP Q8HR PRN PRN Reason: Nausea And Vomiting Pantoprazole Sodium (Pantoprazole 40 Mg Tablet) 40 mg PO DAILY [facility] Last Admin: 12/25/20 07:55 Dose: 40 mg Documented by: Past medical history to include: Atrial flutter, GERD, osteoarthritis, hypothyroid, spinal arthritis, back surgery with laminectomy 1991 Social history: Occasional smoking. Alcohol rarely. 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 Family history: Reviewed, noncontributory to presentation Physical examination: VITAL SIGNS: 97.9, 75, 15, 109/73, 99% room air GENERAL: Sitting up in a chair,, comfortable EYES: Pupils equal. Conjunctiva normal. NECK: JVD not raised; masses not palpable. HEART: First and second heart sounds are normal; no edema. BREAST: Dressing over the right breast. LUNGS: Respiratory rate normal; clear to auscultation. ABDOMEN: Soft, nontender, liver spleen not palpable, no masses palpable. PSYCH: Alert and oriented x3; mood and affect normal. INVESTIGATIONS, reviewed in the clinical context: Coronavirus [PCR]: Not detected December 24: White count 10.9 hemoglobin 11.9 Wound culture pending Creatinine 0.58 Assessment and plan: -Acute right breast abscess in the inferior aspect with the area of fluctuation. Having failed outpatient treatment Status post I&D by Dr. Rebolledo. IV Ancef. Pending cultures -Acute breast cellulitis in the inferior aspect IV Ancef -Hypothyroid Synthroid 112 g daily -Morbid obesity BMI 41.2 Weight loss measures and follow with PCP -Anxiety Cymbalta 60 mg twice a day -Paroxysmal atrial flutter Toprol-XL 25 mg daily IV Ancef. Pending culture. Await further input from ID. Other medications to continue.
[2020-12-25] MEDS: MAGNESIUM HYDROXIDE 2,400 MG/10 ML CUP PO PRN (16:13)
--- NOTE | 2020-12-25 17:18 | PN ---
PROGRESS NOTE DATE OF SERVICE: 12/25/2020 REASON FOR FOLLOWUP: Right breast abscess. INTERVAL HISTORY: Patient is afebrile. The patient is currently breathing comfortably. Denies having any chest pain, shortness of breath or cough. Pain and discomfort has slightly decreased and no diarrhea. PHYSICAL EXAMINATION: Her blood pressure 99/64, pulse of 70. Temperature 97.9. She is 95% on room air. General description is a middle-aged female lying in bed in no distress. Respiratory system: Unlabored breathing, clear to auscultation anteriorly. Heart S1, S2. Regular rate and rhythm. Abdomen soft. Right breast wound looks deep, swelling and redness has decreased. No drainage. LABS: White count normal at 7.4. Cultures currently pending. DIAGNOSTIC IMPRESSION AND PLAN: Patient with right breast abscess status post drainage. Cultures currently pending. Continue with cefazolin. She will benefit from a wound VAC on discharge and possible no antibiotic depending upon the culture report. Continue supportive care. MMODL / IJN: [id number] /
[2020-12-26] MEDS: HYDROmorphone 0.5 MG/0.5 ML SYRINGE IVP PRN ×8 (01:31→23:51)
[2020-12-26] MEDS: HYDROmorphone 1 MG/ML 1 ML SYRINGE IVP PRN ×8 (01:32→23:51)
[2020-12-26] MEDS: LEVOTHYROXINE 112 MCG TAB PO SCH (06:15)
[2020-12-26] MEDS: PANTOPRAZOLE 40 MG TABLET PO SCH (09:09)
[2020-12-26] MEDS: ENOXAPARIN 40 MG/0.4 ML SYRINGE SQ SCH (09:10)
[2020-12-26] MEDS: NAPROXEN 250 MG TAB PO SCH ×3 (09:19→21:06)
[2020-12-26] MEDS: METOPROLOL SUCCINATE (ER) 25 MG TAB.ER.24H PO SCH (09:19)
[2020-12-26] MEDS: DULoxetine HCL 60 MG CAPSULE.DR PO SCH ×2 (09:30→21:06)
[2020-12-26] MEDS ORDERED: FUROSEMIDE 10 MG/ML 2 ML VIAL IV ONE (11:44)
[2020-12-26] MEDS: MAGNESIUM HYDROXIDE 2,400 MG/10 ML CUP PO PRN (15:12)
--- NOTE | 2020-12-26 16:24 | P.PN ---
Progress Note - Text Progress Note Date: 12/26/20 Chief Complaint: Right breast infection History of presenting complaint: This is a pleasant 55-year-old patient of Dr. Nii Best. Chronic stable medical conditions include atrial flutter, GERD, osteoarthritis, hypothyroid, DJD. Patient has history of bilateral reduction mammoplasty many years ago. About a week ago patient noticed a bump below the right breast. She squeezed at it broke. It progressed to become more tender and red. She finally presented to the ER and was given Bactrim. Symptoms do not improve. Yesterday she went down to see her family doctor, Dr. Best. She been having chills and some nausea. Very tender. He sent her down to the ER. Patient does not remember any local trauma. Does not wear bra. Admitted with right breast inferior aspect abscess with surrounding cellulitis. Started IV Ancef December 23: Saw the patient this morning. Pain present. Pending to go down to surgery. No nausea vomiting. On IV Ancef. Nothing by mouth. December 24: Patient having significant pain at the operative site. Dressing change has been carried out. Has been out of bed. Oral intake fair. This discussed with the patient increase activity. Dilaudid dose had to be increased. Also naproxen dose increase. December 25: Still having pain at the operative site. Some burning sensation. Dressing changes including packing is being done. Cultures are pending. Oral intake good. Has been ambulatory. December 26: Pain at the operative site. Oral intake good. No nausea vomiting. Per ID patient be getting a wound VAC. Per social work case manager that'll be delivered tomorrow. Wound cultures are coming back negative Review of systems: Was done for constitutional, cardiovascular, GI, pulmonary. relevant finding as above Active Medications Acetaminophen (Acetaminophen Tab 325 Mg Tab) 650 mg PO Q6HR PRN PRN Reason: Headache Last Admin: 12/24/20 02:44 Dose: 650 mg Documented by: Calcium Carbonate/Glycine (Calcium Carbonate 500 Mg Chewable) 1,000 mg PO Q4HR PRN PRN Reason: Dyspepsia Duloxetine HCl (Duloxetine Hcl 60 Mg Capsule.) 60 mg PO BID [facility] Last Admin: 12/26/20 09:30 Dose: 60 mg Documented by: Enoxaparin Sodium (Enoxaparin 40 Mg/0.4 Ml Syringe) 40 mg SQ DAILY [facility] Last Admin: 12/26/20 09:10 Dose: 40 mg Documented by: Hydromorphone HCl (Hydromorphone 1 Mg/Ml 1 Ml Syringe) 1 mg IVP Q3HR PRN PRN Reason: Severe Pain Last Admin: 12/26/20 16:20 Dose: 1 mg Documented by: Hydromorphone HCl (Hydromorphone 0.5 Mg/0.5 Ml Syringe) 0.5 mg IVP Q3HR PRN PRN Reason: Pain Last Admin: 12/26/20 13:20 Dose: 0.5 mg Documented by: Cefazolin Sodium 2 gm/ Sodium (Chloride) 50 mls @ 100 mls/hr IVPB Q8HR [facility] Last Admin: 12/26/20 16:17 Dose: 100 mls/hr Documented by: Lactulose (Lactulose 20 Gm/30 Ml Cup) 20 gm PO DAILY PRN PRN Reason: Constipation Levothyroxine Sodium (Levothyroxine 112 Mcg Tab) 112 mcg PO 0630 [facility] Last Admin: 12/26/20 06:15 Dose: Not Given Documented by: Lorazepam (Lorazepam 0.5 Mg Tab) 0.5 mg PO Q6HR PRN PRN Reason: Anxiety Last Admin: 12/22/20 19:57 Dose: 0.5 mg Documented by: Magnesium Hydroxide (Magnesium Hydroxide 2,400 Mg/10 Ml Cup) 2,400 mg PO DAILY PRN PRN Reason: Constipation Last Admin: 12/26/20 15:12 Dose: 2,400 mg Documented by: Melatonin (Melatonin 3 Mg Tablet) 3 mg PO HS PRN PRN Reason: Insomnia Metoprolol Succinate (Metoprolol Succinate (Er) 25 Mg Tab.Er.24h) 25 mg PO DAILY [facility] Last Admin: 12/26/20 09:19 Dose: 25 mg Documented by: Naloxone HCl (Naloxone 0.4 Mg/Ml 1 Ml Vial) 0.2 mg IV Q2M PRN PRN Reason: Opioid Reversal Naproxen (Naproxen 250 Mg Tab) 500 mg PO TID [facility] Last Admin: 12/26/20 09:19 Dose: 500 mg Documented by: Ondansetron HCl (Ondansetron 4 Mg/2 Ml Vial) 4 mg IVP Q8HR PRN PRN Reason: Nausea And Vomiting Pantoprazole Sodium (Pantoprazole 40 Mg Tablet) 40 mg PO DAILY [facility] Last Admin: 12/26/20 09:09 Dose: 40 mg Documented by: Past medical history to include: Atrial flutter, GERD, osteoarthritis, hypothyroid, spinal arthritis, back surgery with laminectomy 1991 Social history: Occasional smoking. Alcohol rarely. 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 Family history: Reviewed, noncontributory to presentation Physical examination: VITAL SIGNS: 11, 64, 16, 102/59, 96% room air GENERAL: Sitting up ,, comfortable EYES: Pupils equal. Conjunctiva normal. NECK: JVD not raised; masses not palpable. HEART: First and second heart sounds are normal; no edema. BREAST: Decreased redness around the wound site. [Examined in the presence of nurse farm planner] LUNGS: Respiratory rate normal; clear to auscultation. ABDOMEN: Soft, nontender, liver spleen not palpable, no masses palpable. PSYCH: Alert and oriented x3; mood and affect normal. INVESTIGATIONS, reviewed in the clinical context: December 26: Pro-calcitonin 0.04 Coronavirus [PCR]: Not detected December 24: White count 10.9 hemoglobin 11.9 Wound culture pending Creatinine 0.58 Assessment and plan: -Acute right breast abscess in the inferior aspect with the area of fluctuation. Having failed outpatient treatment Status post I&D by Dr. Monterroso. IV Ancef. Cultures are coming back negative. For wound VAC for outpatient -Acute breast cellulitis in the inferior aspect IV Ancef -Hypothyroid Synthroid 112 g daily -Morbid obesity BMI 41.2 Weight loss measures and follow with PCP -Anxiety Cymbalta 60 mg twice a day -Paroxysmal atrial flutter Toprol-XL 25 mg daily IV Ancef. Cultures negative. Wound VAC being arranged. Other medications to continue. Discussed with the patient.
--- NOTE | 2020-12-26 16:53 | PN ---
PROGRESS NOTE DATE OF SERVICE: 12/26/2020 REASON FOR FOLLOWUP: Right breast abscess, cellulitis. INTERVAL HISTORY: The patient is afebrile. The patient is breathing comfortably. further discomfort to the right breast area. No worsening, though. No chest pain, shortness of breath or cough. No abdominal pain or diarrhea. PHYSICAL EXAMINATION: Blood pressure 110/68 with pulse of 76, temperature 98.1. She is 96% on room air. GENERAL DESCRIPTION: General description is a middle-aged female up in the bed in no distress. RESPIRATORY SYSTEM: Unlabored breathing. Clear to auscultation anteriorly. HEART: S1, S2. Regular rate and rhythm. ABDOMEN: Soft. No tenderness. Right breast swelling has slightly decreased. LABS: No new labs have been obtained today. Cultures so far negative. DIAGNOSTIC IMPRESSION AND PLAN: Patient with right breast abscess, status post drainage. Culture has been negative so far. Patient is covered with cefazolin; to finish therapy with oral Keflex. Local wound care with a wound V.A.C. To follow up with me in [facility] next week. Questions and concerns were answered. Prescription was arranged for the patient. MMODL / IJN: [id number] /
[2020-12-26] MEDS: LORazepam 0.5 MG TAB PO PRN (21:53)
[2020-12-27] MEDS: HYDROmorphone 1 MG/ML 1 ML SYRINGE IVP PRN ×2 (03:51→08:55)
[2020-12-27] MEDS: LEVOTHYROXINE 112 MCG TAB PO SCH (06:36)
[2020-12-27 08:32] VITALS: BP 136/89; PULSE 76; RESP 18; TEMP 97.8
[2020-12-27] MEDS: ENOXAPARIN 40 MG/0.4 ML SYRINGE SQ SCH (08:47)
[2020-12-27] MEDS: PANTOPRAZOLE 40 MG TABLET PO SCH (08:48)
[2020-12-27] MEDS: DULoxetine HCL 60 MG CAPSULE.DR PO SCH (08:48)
[2020-12-27] MEDS: METOPROLOL SUCCINATE (ER) 25 MG TAB.ER.24H PO SCH (08:48)
[2020-12-27] MEDS: NAPROXEN 250 MG TAB PO SCH (08:49)
--- NOTE | 2020-12-27 11:47 | P.PN ---
Subjective Progress Note Date: 12/27/20 Principal diagnosis: Postop incision and drainage right breast abscess Carolyn is a 55-year-old white female status post incision and drainage of a right breast abscess 4 days ago. Postoperatively she is doing well. She has not had any fever or chills. Her white count is normal at 7.4. Additionally area of erythema on the breast is markedly decreased. Objective - Vital Signs Vital signs: Vital Signs Temp 97.8 F 12/27/20 08:15 Pulse 76 12/27/20 08:15 Resp 18 12/27/20 08:15 BP 136/89 12/27/20 08:15 Pulse Ox 98 12/27/20 08:15 Intake & Output 12/26/20 12/27/20 12/27/20 18:59 06:59 18:59 Intake Total 540 Output Total 800 600 Balance -800 -60 Intake: Oral 540 Output: Urine 800 600 Other: Voiding Method Toilet # Voids 2 - Constitutional General appearance: Present: cooperative - EENT Eyes: Present: EOMI ENT: Present: hearing grossly normal - Neck Neck: Present: normal ROM - Respiratory Respiratory: bilateral: CTA - Cardiovascular Heart sounds: normal: S1, S2 - Integumentary Integumentary Comment(s): Decreased erythema right breast inferior aspects I&D site is clean and dry with packing intact Integumentary: Present: normal turgor - Psychiatric Psychiatric: Present: A&O x's 3, appropriate affect, intact judgment & insight - Labs CBC & Chem 7: 12/25/20 06:45 12/22/20 07:44 Assessment and Plan Assessment: Impression: Postoperatively for incision and drainage abscess right breast Patient is going to have a wound VAC alcohol Resolution of cellulitis Plan: Discharge home if okay with Dr. najera wound vac sent home with patient and home healthcare to follow Follow-up with Dr. Myrick in 1 week
--- NOTE | 2020-12-27 21:08 | P.DS ---
Providers Date of admission: 12/23/20 13:57 Expected date of discharge: 12/27/20 Attending physician: Ming Jackson Consults: 12/21/20 21:41 Consult Physician Stat Consulting Provider: Jemma Monterroso Consult Reason/Comments: breast abscess Do you want consulting provider notified?: Yes 12/22/20 11:25 Consult Physician Stat Consulting Provider: Naif Sarmiento Consult Reason/Comments: right breast abscess Do you want consulting provider notified?: Already Contacted Primary care physician: Nii Best [facility] Course: Chief Complaint: Right breast infection History of presenting complaint: This is a pleasant 55-year-old patient of Dr. Nii Best. Chronic stable medical conditions include atrial flutter, GERD, osteoarthritis, hypothyroid, DJD. Patient has history of bilateral reduction mammoplasty many years ago. About a week ago patient noticed a bump below the right breast. She squeezed at it broke. It progressed to become more tender and red. She finally presented to the ER and was given Bactrim. Symptoms do not improve. Yesterday she went down to see her family doctor, Dr. Best. She been having chills and some nausea. Very tender. He sent her down to the ER. Patient does not remember any local trauma. Does not wear bra. Admitted with right breast inferior aspect abscess with surrounding cellulitis. Started IV Ancef December 23: Saw the patient this morning. Pain present. Pending to go down to surgery. No nausea vomiting. On IV Ancef. Nothing by mouth. December 24: Patient having significant pain at the operative site. Dressing change has been carried out. Has been out of bed. Oral intake fair. This discussed with the patient increase activity. Dilaudid dose had to be increased. Also naproxen dose increase. December 25: Still having pain at the operative site. Some burning sensation. Dressing changes including packing is being done. Cultures are pending. Oral intake good. Has been ambulatory. December 26: Pain at the operative site. Oral intake good. No nausea vomiting. Per ID patient be getting a wound VAC. Per catalytic case operator that'll be delivered tomorrow. Wound cultures are coming back negative December 27: Patient doing better. Cultures have been negative. Oral Keflex for home. We'll be getting a wound VAC in place. Discussed with the patient. Consultation: Dr. Ramez Quiroz from surgery Dr. Sarmiento from ID Past medical history to include: Atrial flutter, GERD, osteoarthritis, hypothyroid, spinal arthritis, back surgery with laminectomy 1991 Social history: Occasional smoking. Alcohol rarely. 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 Family history: Reviewed, noncontributory to presentation Physical examination: VITAL SIGNS: 97.8, 76, 18, 136.89, 98% room air GENERAL: Sitting up ,, comfortable EYES: Pupils equal. Conjunctiva normal. NECK: JVD not raised; masses not palpable. HEART: First and second heart sounds are normal; no edema. BREAST: Decreased redness around the wound site. [Examined in the presence of nurse support coordinator] LUNGS: Respiratory rate normal; clear to auscultation. ABDOMEN: Soft, nontender, liver spleen not palpable, no masses palpable. PSYCH: Alert and oriented x3; mood and affect normal. INVESTIGATIONS, reviewed in the clinical context: December 26: Pro-calcitonin 0.04 Coronavirus [PCR]: Not detected December 24: White count 10.9 hemoglobin 11.9 Wound culture pending Creatinine 0.58 Assessment and plan: -Acute right breast abscess in the inferior aspect with the area of fluctuation. Having failed outpatient treatment Status post I&D by Dr. Monterroso. IV Ancef. Cultures are negative. wound VAC for outpatient. Oral Keflex for 10 days -Acute breast cellulitis in the inferior aspect IV Ancef. Oral Keflex -Hypothyroid Synthroid 112 g daily -Morbid obesity BMI 41.2 Weight loss measures and follow with PCP -Anxiety Cymbalta 60 mg twice a day -Paroxysmal atrial flutter Toprol-XL 25 mg daily Disposition: Home Patient Condition at Discharge: Stable Plan - Discharge Summary Discharge Rx Participant: Yes New Discharge Prescriptions: New Naproxen [Naprosyn] 250 mg PO TID #21 tab Melatonin 3 mg PO HS PRN tablet PRN Reason: Insomnia Famotidine [Pepcid] 20 mg PO BID #60 tablet Cephalexin [Keflex] 500 mg PO Q6HR 10 Days #40 cap Continue DULoxetine HCL [Cymbalta] 60 mg PO BID Levothyroxine Sodium [Synthroid] 112 mcg PO DAILY Metoprolol Succinate (ER) [Toprol XL] 25 mg PO DAILY Discontinued Ibuprofen 800 mg PO Q8H PRN PRN Reason: Pain Sulfamethoxazole/Trimethoprim [Sulfamethoxazole-Tmp Ds Tablet] 1 tab PO BID Discharge Medication List DULoxetine HCL [Cymbalta] 60 mg PO BID 06/08/20 [History] Levothyroxine Sodium [Synthroid] 112 mcg PO DAILY 06/08/20 [History] Metoprolol Succinate (ER) [Toprol XL] 25 mg PO DAILY 12/21/20 [History] Cephalexin [Keflex] 500 mg PO Q6HR 10 Days #40 cap 12/26/20 [Rx] Famotidine [Pepcid] 20 mg PO BID #60 tablet 12/26/20 [Rx] Melatonin 3 mg PO HS PRN tablet 12/26/20 [Rx] Naproxen [Naprosyn] 250 mg PO TID #21 tab 12/26/20 [Rx] Follow up Appointment(s)/Referral(s): Jemma Monterroso MD [STAFF PHYSICIAN] - 12/30/20 12:40 pm Nii Best MD [Primary Care Provider] - 1-2 days Activity/Diet/Wound Care/Special Instructions: Local wound care with wound VAC black foam continues pressure 125 mmHg change Saturday, follow-up with Dr. Sarmiento in Wound center will call to set up appt [phone]
== END 2020-12-27 12:23 | disposition home or self-care (01) | DRG 600 ==
LOC: EC 19:27 → 6NMEDSUR 21:58 → OBSVTOIN 12-23 13:57 → 6PED 12-25 14:53
PROVIDERS: ADMIT Hospitalist; ATTEND Hospitalist
PROC: 0H9T3ZZ Drainage of Right Breast, Percutaneous Approach (ICD-10-PCS; principal; 2020-12-23 11:05)
DX: N61.1 Abscess of the breast and nipple (principal); I48.92 Unspecified atrial flutter; L03.90 Cellulitis, unspecified; Z68.41 Body mass index [BMI] 40.0-44.9, adult; E03.9 Hypothyroidism, unspecified; E66.01 Morbid (severe) obesity due to excess calories; F17.210 Nicotine dependence, cigarettes, uncomplicated; K21.9 Gastro-esophageal reflux disease without esophagitis; Z20.822 Contact with and (suspected) exposure to COVID-19; Z79.890 Hormone replacement therapy; L27.0 Generalized skin eruption due to drugs and medicaments taken internally; T36.8X5A Adverse effect of other systemic antibiotics, initial encounter; M19.90 Unspecified osteoarthritis, unspecified site; Z79.899 Other long term (current) drug therapy; Z90.710 Acquired absence of both cervix and uterus; Z88.1 Allergy status to other antibiotic agents; Z88.0 Allergy status to penicillin; Z90.49 Acquired absence of other specified parts of digestive tract
CPT/HCPCS: 71046; 82565; 84145; 85025; 87070; 87075; 87205; 87635; 96361; 96365; 96366; 96372; 96375; 96376; 99284

== ENCOUNTER → 2020-12-30 | Outpatient (CLI) | payer MEDICARE ==
[2020-12-30 15:44] VITALS: BP 105/74; PULSE 72; RESP 8; TEMP 97.7
--- NOTE | 2020-12-30 15:58 | P.PN ---
Progress Note - Text Progress Note Date: 12/30/20 Carolyn is a 55 year old white female status post I&D of a right breast abscess on 12-21-20. She was then admitted to the hospital for IV antibiotics secondary to cellulitis. The cellulitis subsequently resolved and she is afebrile. She continues to have her wound packed. She did have a wound VAC on however this was not draining any fluid off and she is going to stop the wound VAC. In examination: Lungs: Clear Heart: Regular rate and rhythm Incision packing changed clean and dry good granulation tissue no evidence of cellulitis on today's exam Plan: Packing to be changed daily Continue antibiotics until completed Follow-up here in 2 weeks Cc: Dr. Best
== END ==
LOC: WWCWWP 15:30
PROVIDERS: ATTEND Surgery
DX: Z53.9 Procedure and treatment not carried out, unspecified reason (principal)

== ENCOUNTER 2021-05-25 22:27 | Emergency (ER) | payer MEDICARE ==
[2021-05-25 23:38] VITALS: TEMP 99
--- NOTE | 2021-05-25 23:59 | XR ---
EXAMINATION TYPE: XR chest 2V DATE OF EXAM: 05/25/2021 COMPARISON: 12/24/2020 HISTORY: Difficulty breathing TECHNIQUE: FINDINGS: There is some mild increased interstitial density in the right midlung field. The other mode g thayer are clear. Heart and mediastinum are normal. There is no pleural effusion. Bony thorax is in tact. IMPRESSION: Minimal interstitial infiltrate right mid lung appears new compared to old exam. There is clearing of the minimal infiltrate lateral left lung base compared to old exam.
[2021-05-26] MEDS ORDERED: dexAMETHasone 2 MG TAB PO STA (00:22)
[2021-05-26] MEDS ORDERED: IPRATROPIUM-ALBUTEROL 3 ML NEB INHALATION STA (00:23)
--- NOTE | 2021-05-26 00:47 | ED ---
General Adult HPI - General Chief complaint: Shortness of Breath Stated complaint: MOIRA Time Seen by Provider: 05/25/21 23:55 Source: patient, RN notes reviewed, old records reviewed Mode of arrival: ambulatory - History of Present Illness Initial comments: Patient is a 55-year-old female with past medical history remarkable for atrial flutter, thyroid disorder, GERD as well as recently diagnosed pneumonia this morning presents emergency department over concern for increased coughing. She states "when I cough I feel like he may ." She was in an outside facility was negative for cold and flu. She was diagnosed with pneumonia, given a Z-Antonio comments at home. She states that she has been coughing all day. She denies any chest pain, nausea, vomiting, abdominal pain. It is just concerned regarding the cough. He was not vaccinated for Covid but has had Covid twice. Presents for further evaluation. Patient was evaluated when she is placed in a room. Cough is productive of mucus. - Related Data Home Medications Medication Instructions Recorded Confirmed DULoxetine HCL [Cymbalta] 60 mg PO BID 06/08/20 12/30/20 Levothyroxine Sodium [Synthroid] 112 mcg PO DAILY 06/08/20 12/30/20 Metoprolol Succinate (ER) [Toprol 25 mg PO DAILY 12/21/20 12/30/20 XL] Naproxen [Naprosyn] 250 mg PO TID PRN 12/30/20 12/30/20 Previous Rx's Medication Instructions Recorded Cephalexin [Keflex] 500 mg PO Q6HR 10 Days #40 cap 12/26/20 Famotidine [Pepcid] 20 mg PO BID #60 tablet 12/26/20 Albuterol Inhaler [Ventolin Hfa 1 puff INHALATION RT-QID #8 gm 05/26/21 Inhaler] Doxycycline Hyclate 100 mg PO BID 7 Days #14 capsule 05/26/21 predniSONE [Deltasone] 40 mg PO DAILY 5 Days #10 tab 05/26/21 Allergies Allergy/AdvReac Type Severity Reaction Status Date / Time Penicillins Allergy Rash/Hives Verified 05/25/21 23:38 vancomycin AdvReac Itching Verified 05/25/21 23:38 Paper tape AdvReac Rash/Hives Uncoded 05/25/21 23:38 Review of Systems ROS Statement: Those systems with pertinent positive or pertinent negative responses have been documented in the HPI. Review of Systems: CONST: Denies fever EYES: Denies blurry vision ENT: Nasal congestion C/V: Denies Chest pain RESP: Endorses cough GI: Denies abdominal pain : Denies dysuria SKIN: Denies rash. MSK: Denies joint pain. NEURO: Denies headache ROS Other: All systems not noted in ROS Statement are negative. Past Medical History Past Medical History: Atrial Flutter, GERD/Reflux, Osteoarthritis (OA), Thyroid Disorder Additional Past Medical History / Comment(s): a-flutter d/t thyroid issues; buristis, spinal arthritis; DDD; hypothroidism History of Any Multi-Drug Resistant Organisms: None Reported Past Surgical History: Back Surgery, Cholecystectomy, Heart Catheterization, Hysterectomy, Orthopedic Surgery, Tonsillectomy Additional Past Surgical History / Comment(s): laminectomy 1991; heart cath Past Anesthesia/Blood Transfusion Reactions: No Reported Reaction Past Psychological History: No Psychological Hx Reported Smoking Status: Light tobacco smoker Past Alcohol Use History: Rare Past Drug Use History: None Reported General Exam - General Exam Comments Initial Comments: General: Appears in no acute distress. HEAD: Normal with no signs of head trauma. EYES: PERRLA, EOMI, conjunctiva normal, no discharge. ENT: Hearing grossly intact, normal oropharynx. RESPIRATORY: Rhonchorous breath sounds with audible wheezes bilaterally. Not hypoxic. No increased work of breathing. Cough. C/V: Regular rate and rhythm. S1 and S2 auscultated, no edema, peripheral pulses 2+ and intact throughout ABD: Abd is soft, nontender, nondistended EXT: Normal range of motion, no obvious deformity SKIN: No rashes or lesions observed on exposed skin. NEURO: Alert and oriented 4. Course Vital Signs 05/25/21 05/26/21 05/26/21 23:34 00:33 00:40 Temperature 99 F Pulse Rate 91 92 94 Respiratory 19 Rate Blood Pressure 124/62 O2 Sat by Pulse 96 Oximetry Medical Decision Making - Medical Decision Making Based on the patient's presentation and physical exam, I do believe she is likely just experiencing worsening cough secondary to her previously diagnosed pneumonia. We will repeat a chest x-ray as we have no documentation of the pneumonia as well as repeat fluid Covid sounds. Due to the wheezing, with no history of asthma or COPD, we will provide her with a dose of Decadron as well as a breathing treatment. She was in agreement this plan. I do not believe that further laboratory studies or imaging are required at this time. Patient's x-ray revealed a right middle lobe infiltrate. Patient is Covid and flu negative. On reevaluation, lung sounds are improved. She is less wheezy. Vital signs remain within normal limits and stable. I discussed results of her labs and imaging with her. I do believe it is safe for her to be discharged home. She'll be given a stronger antibiotic, doxycycline to be taken twice a day and she'll receive a dose here. We'll continue steroids at home as well prednisone 40 mg daily. She'll receive an additional albuterol inhaler. She was in agreement with this plan. She'll take [id number] cough medication which showed he has at home. I will provide the patient with a prescription for albuterol, prednisone, doxycycline. I instructed the patient to follow up with their PCP in the next 3 days. I explained that the patient should return to the emergency department if they experience any worsening symptoms. Strict return precautions were discussed with the patient. The patient expressed understanding of these instructions. I answered all questions that the patient had. The patient was discharged home in good condition with their prescriptions and follow up information. - Lab Data Lab Results 05/26/21 05/26/21 Range/Units 00:40 00:40 Coronavirus (PCR) Not Detected (Not Detectd) Influenza Type A RNA Not Detected (Not Detectd) Influenza Type B (PCR) Not Detected (Not Detectd) Disposition Clinical Impression: CAP (community acquired pneumonia), Bronchospasm Disposition: HOME SELF-CARE Condition: Fair Instructions (If sedation given, give patient instructions): Bronchospasm (ED), Pneumonia (ED) Prescriptions: predniSONE [Deltasone] 40 mg PO DAILY 5 Days #10 tab Doxycycline Hyclate 100 mg PO BID 7 Days #14 capsule Albuterol Inhaler [Ventolin Hfa Inhaler] 1 puff INHALATION RT-QID #8 gm Is patient prescribed a controlled substance at d/c from ED?: No Referrals: Nii Best MD [Primary Care Provider] - 1-2 days
[2021-05-26] MEDS ORDERED: DOXYCYCLINE 100 MG CAP PO STA (01:30)
[2021-05-26 02:53] VITALS: BP 143/88; PULSE 87; RESP 16
== END 2021-05-26 02:10 | disposition home or self-care (01) ==
LOC: EC 22:27
DX: J18.9 Pneumonia, unspecified organism (principal); J98.01 Acute bronchospasm; F17.200 Nicotine dependence, unspecified, uncomplicated; E07.9 Disorder of thyroid, unspecified; Z88.0 Allergy status to penicillin; Z91.09 Other allergy status, other than to drugs and biological substances; Z88.1 Allergy status to other antibiotic agents; Z20.822 Contact with and (suspected) exposure to COVID-19; Z79.890 Hormone replacement therapy
CPT/HCPCS: 94640; 87502; 87635; 71046; 99285; J8540

== ENCOUNTER 2021-10-04 11:16 | Day surgery (SDC) | payer MEDICARE ==
[~2021-10-04 11:16] MED LIST: CLINDAMYCIN 600 MG in DEXTROSE 5% IN WATER 50 ML IVPB PRN; DEXAMETHASONE SOD PHOSPHATE 4 MG/ML 1 ML VIAL IV PRN; FAMOTIDINE 20 MG/2 ML VIAL IV PRN; LACTATED RINGERS 1,000 ML IV SCH; LIDOCAINE 1% (10MG/ML) FOR IV START INTRADERMA PRN; ONDANSETRON 4 MG/2 ML VIAL IVP PRN
[2021-10-04] MEDS: OXYMETAZOLINE 0.05% NASL SPRAY 1 SPRAY BOTTLE EA NOSTRIL PRN ×5 (11:40→12:00)
[2021-10-04 11:45] VITALS: TEMP 97.2
[2021-10-04] MEDS ORDERED: LIDOCAINE 2% INJ 20 MG/ML (2 ML VIAL) ONE (13:21)
[2021-10-04] MEDS ORDERED: fentaNYL (PF) 50 MCG/ML 2 ML AMP ONE (13:21)
[2021-10-04] MEDS ORDERED: PROPOFOL 10 MG/ML 20 ML VIAL IV ONE (13:21)
[2021-10-04] MEDS ORDERED: DEXAMETHASONE SOD PHOSPHATE 10 MG/ML 1 ML VIAL ONE (13:21)
[2021-10-04] MEDS ORDERED: MIDAZOLAM 2 MG/2 ML VIAL ONE (13:21)
[2021-10-04] MEDS ORDERED: SUCCINYLCHOLINE CHLORIDE 100 MG/5 ML SYR IV ONE (13:21)
[2021-10-04] MEDS ORDERED: LIDOCAINE 1%-EPI 1:100,000 20 ML VIAL SQ ONE ×2 (13:24)
[2021-10-04] MEDS ORDERED: BACITRACIN ZINC 500 UNIT/GM OINT 28.4 GM TUBE TOPICAL ONE (13:42)
--- NOTE | 2021-10-04 14:28 | P.OP ---
Date of Procedure: 10/04/21 Preoperative Diagnosis: Deviated nasal septum Inferior turbinate hypertrophy Chronic sinusitis Postoperative Diagnosis: Same Procedure(s) Performed: Septoplasty Outfracture and submucous resection of the inferior turbinates Bilateral endoscopic sinus surgery including right maxillary antrostomy, left sphenoidotomy, bilateral jono bullectomy Anesthesia: LYLY Surgeon: Philip Cummins Estimated Blood Loss (ml): 10 Pathology: other (Nasal septal bone and cartilage and sinus contents) Condition: stable Disposition: PACU Indications for Procedure: This is a 56-year-old white female with chronic nasal airway obstruction bilaterally also with issues with chronic sinusitis and CT which showed some inflammation in specific sinuses as well as bilateral jono bullosa cells Operative Findings: Nasal septum deviated to the right with inferior turbinate hypertrophy bilaterally. Right maxillary ostia was obstructed as well as the sphenoid ostium and bilateral jono bullosa cells noted Description of Procedure: The patient was brought into the operative suite and placed in a supine position. The patient underwent induction of general anesthesia with oral endotracheal intubation without difficulty. The patient was prepped and draped in the usual aseptic fashion with the orbits in the operating field for monitoring to the case and the computed tomography scan was on the computer screen for review throughout the case. 1% lidocaine with 1 :100,000 epinephrine was infused submucosally into both sides of the nasal septum as well as the lateral nasal wall and anterior tips of the middle turbinates. While this was taking vasoconstrictive effect the inferior turbinates were infractured with [place] elevator and partial submucous resection of the inferior turbinates was performed with a portion of the submucosal soft tissue and the inferior turbinate bone removed with Coblation device. The inferior turbinates were then outfractured with the [place]o elevator. A left hemitransfixion incision was then made with the mucoperichondrial and mucoperiosteal flap on the left elevated. The bony cartilaginous junction was disarticulated and the mucoperiosteal flap on the right was elevated. Bony nasal septal deformities were removed with Radha forceps and an inferior cartilaginous strip was removed leaving a full 1.5 cm caudal strut. Checking intranasally this corrected the nasoseptal deformities and the hemitransfixion incision was closed with a running 4-0 chromic suture. Full 0 endoscopic examination is performed bilaterally. Beginning on the right, the middle turbinate was medialized. The maxillary ostium was located with a ballpoint probe and an infundibulotomy was performed followed by uncinectomy. The maxillary antrostomy was enlarged at the expense of the anterior and posterior fontanelle taking care anteriorly not to injure the lacrimal bone. The maxillary sinus was evaluated with 30 and 70 endoscope . Bilateral jono bullectomy was performed with microdebrider. A left sphenoidotomy was also under direct visualization with 0 endoscope utilizing straight suction and straight Blakesley forceps. Exploration of the left sphenoid sinus was also performed. [Nasopore nasal dressing was placed in the middle meatus bilaterally under direct visualization]. Bilateral C[place]rena airway splints coated with bacitracin ointment were placed and sutured transseptally with a 4-0 nylon suture. The patient was suctioned in oral gastric fashion and was allowed to emerge from general anesthesia having tolerated procedure well and was extubated in the operating suite and transferred to the postoperative recovery area in satisfactory condition.
[2021-10-04] MEDS: HYDROmorphone 0.5 MG/0.5 ML SYRINGE IVP PRN ×3 (14:41→15:13)
[2021-10-04 14:55] VITALS: RESP 16
[2021-10-04] MEDS ORDERED: hydrALAZINE HCL 20 MG/ML 1 ML VIAL IVP ONE (15:13)
[2021-10-04] MEDS ORDERED: LACTATED RINGERS 900 ML IV ONE (15:52)
[2021-10-04 16:25] VITALS: BP 148/80; PULSE 76
== END 2021-10-04 17:22 | disposition home or self-care (01) ==
LOC: OR 11:16
PROVIDERS: ATTEND Otolaryngology
DX: J34.2 Deviated nasal septum (principal); J34.3 Hypertrophy of nasal turbinates; J32.9 Chronic sinusitis, unspecified; J45.909 Unspecified asthma, uncomplicated; M19.90 Unspecified osteoarthritis, unspecified site; F41.9 Anxiety disorder, unspecified; E66.9 Obesity, unspecified; E07.9 Disorder of thyroid, unspecified; H93.13 Tinnitus, bilateral; H90.41 Sensorineural hearing loss, unilateral, right ear, with unrestricted hearing on the contralateral side; Z85.038 Personal history of other malignant neoplasm of large intestine; Z87.891 Personal history of nicotine dependence; Z68.41 Body mass index [BMI] 40.0-44.9, adult; Z95.5 Presence of coronary angioplasty implant and graft; Z79.890 Hormone replacement therapy; Z79.899 Other long term (current) drug therapy; Z88.2 Allergy status to sulfonamides; Z90.710 Acquired absence of both cervix and uterus; Z98.890 Other specified postprocedural states
CPT/HCPCS: 88305; 88300; 30520; 30140; 31256; 31287; 31240; J2250; J0360; J1100; J2405; J3010; J0330; J2704; J1170; J2001

== ENCOUNTER 2021-12-14 16:53 | Inpatient (IN) | payer MEDICARE ==
--- NOTE | 2021-12-14 18:39 | XR ---
EXAM: Abdomen radiograph. HISTORY: Pain. TECHNIQUE: Upright AP views. COMPARISON: None available FINDINGS: There are nondilated bowel loops with a nonobstructive pattern. There are no pathologic calcification s. No acute osseous abnormality seen. No pneumoperitoneum. Cholecystectomy clips seen. There is moder ate amount of stool throughout the colon. IMPRESSION: Stool burden without acute process.
[2021-12-14] MEDS ORDERED: KETOROLAC 15 MG/ML 1 ML VIAL IVP STA (19:37)
--- NOTE | 2021-12-14 19:42 | ED ---
Abdominal Pain HPI - General Chief Complaint: Abdominal Pain Stated Complaint: pelvis infection, abd pain, dr best sent her Time Seen by Provider: 12/14/21 19:02 Source: patient Mode of arrival: ambulatory Limitations: no limitations - History of Present Illness Initial Comments: 56-year-old female history of a total abdominal hysterectomy in the past history of breast cyst on the right no history of any other intra-abdominal problems who states for the past 3 or 4 days she's had left lower quadrant abdominal pain sharp shooting nature and radiates to her back she has some nausea with it gets worse with movement and with walking and also with bumps in the road driving here today. She was receiving diagnosed with urinary tract infection 2 days ago was placed on antibiotics. She denies any fevers chills sweats she again does have some nausea at this time no vomiting no diarrhea no dysuria hematuria. She has no prior history kidney stones. She was sent here for further evaluation by her doctor. I did discuss the case initially with Dr. Best prior to her being sent here by private vehicle. MD Complaint: abdominal pain - Related Data Home Medications Medication Instructions Recorded Confirmed DULoxetine HCL [Cymbalta] 30 mg PO DAILY 06/08/20 10/04/21 Levothyroxine Sodium [Synthroid] 112 mcg PO DAILY 06/08/20 10/04/21 Metoprolol Succinate (ER) [Toprol 25 mg PO DAILY 12/21/20 10/04/21 XL] L.acidoph,Paracasei, B.lactis 1 each PO DAILY 10/03/21 10/04/21 [Probiotic] Allergies Allergy/AdvReac Type Severity Reaction Status Date / Time Penicillins Allergy Rash/Hives Verified 12/14/21 17:36 Sulfa (Sulfonamide Allergy Rash/Hives Verified 12/14/21 17:36 Antibiotics) vancomycin AdvReac Itching Verified 12/14/21 17:36 Paper tape AdvReac Rash/Hives Uncoded 10/04/21 11:39 Review of Systems ROS Statement: Those systems with pertinent positive or pertinent negative responses have been documented in the HPI. ROS Other: All systems not noted in ROS Statement are negative. Past Medical History Past Medical History: Atrial Flutter, GERD/Reflux, Osteoarthritis (OA), Thyroid Disorder Additional Past Medical History / Comment(s): past hx. 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 for, hypothroidism, sinus problems History of Any Multi-Drug Resistant Organisms: None Reported Past Surgical History: Back Surgery, Cholecystectomy, Heart Catheterization, Hysterectomy, Orthopedic Surgery, Tonsillectomy Additional Past Surgical History / Comment(s): laminectomy 1991; heart cath , ovarian cysts removed Past Anesthesia/Blood Transfusion Reactions: No Reported Reaction Additional Past Anesthesia/Blood Transfusion Reaction / Comment(s): one time episode of slow to wake up years ago Past Psychological History: No Psychological Hx Reported Smoking Status: Former smoker General Exam - General Exam Comments Initial Comments: This is a well-developed well-nourished awake alert oriented 4 female Limitations: no limitations General appearance: alert, in no apparent distress Head exam: Present: atraumatic, normocephalic, normal inspection Eye exam: Present: normal appearance, PERRL, EOMI. Absent: scleral icterus, conjunctival injection, periorbital swelling ENT exam: Present: normal exam, mucous membranes moist Neck exam: Present: normal inspection. Absent: tenderness, meningismus, lymphadenopathy Respiratory exam: Present: normal lung sounds bilaterally. Absent: respiratory distress, wheezes, rales, rhonchi, stridor Cardiovascular Exam: Present: regular rate, normal rhythm, normal heart sounds. Absent: systolic murmur, diastolic murmur, rubs, gallop, clicks GI/Abdominal exam: Present: soft, tenderness (Left lower quadrant tenderness palpation no overt guarding or rebound or bruits no definitive masses), normal bowel sounds. Absent: distended, guarding, rebound, rigid Rectal exam: Present: deferred Extremities exam: Present: normal inspection, full ROM, normal capillary refill. Absent: tenderness, pedal edema, joint swelling, calf tenderness Back exam: Present: normal inspection Neurological exam: Present: alert, oriented X3, CN II-XII intact Psychiatric exam: Present: normal affect, normal mood Skin exam: Present: warm, dry, intact, normal color. Absent: rash Course Vital Signs 12/14/21 12/14/21 17:30 20:55 Temperature 98.2 F Pulse Rate 73 63 Respiratory 18 18 Rate Blood Pressure 149/86 131/90 O2 Sat by Pulse 99 100 Oximetry Medical Decision Making - Medical Decision Making I did discuss findings with the patient patient will be admitted for pain control and IV antibiotics. 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 - Lab Data Result diagrams: 12/14/21 19:41 12/14/21 19:41 Lab Results 12/14/21 12/14/21 12/14/21 Range/Units 19:41 19:41 19:41 WBC 7.8 (3.8-10.6) k/uL RBC 4.78 (3.80-5.40) m/uL Hgb 13.6 (11.4-16.0) gm/dL Hct 43.3 (34.0-46.0) % MCV 90.6 (80.0-100.0) fL MCH 28.5 (25.0-35.0) pg MCHC 31.5 (31.0-37.0) g/dL RDW 13.6 (11.5-15.5) % Plt Count 294 (150-450) k/uL MPV 7.8 Neutrophils % 53 % Lymphocytes % 34 % Monocytes % 8 % Eosinophils % 2 % Basophils % 0 % Neutrophils # 4.2 (1.3-7.7) k/uL Lymphocytes # 2.7 (1.0-4.8) k/uL Monocytes # 0.7 (0-1.0) k/uL Eosinophils # 0.1 (0-0.7) k/uL Basophils # 0.0 (0-0.2) k/uL Sodium 138 (137-145) mmol/L Potassium 4.0 (3.5-5.1) mmol/L Chloride 103 (98-107) mmol/L Carbon Dioxide 24 (22-30) mmol/L Anion Gap 11 mmol/L BUN 9 (7-17) mg/dL Creatinine 0.67 (0.52-1.04) mg/dL Est GFR (CKD-EPI)AfAm >90 (>60 ml/min/1.73 sqM) Est GFR (CKD-EPI)NonAf >90 (>60 ml/min/1.73 sqM) Glucose 94 (74-99) mg/dL Calcium 9.6 (8.4-10.2) mg/dL Total Bilirubin 0.3 (0.2-1.3) mg/dL AST 21 (14-36) U/L ALT 15 (4-34) U/L Alkaline Phosphatase 73 (38-126) U/L Creatine Kinase 70 (30-135) U/L Total Protein 6.7 (6.3-8.2) g/dL Albumin 4.2 (3.5-5.0) g/dL Lipase 67 (23-300) U/L Urine Color Urine Appearance (Clear) Urine pH (5.0-8.0) Ur Specific [place] (1.001-1.035) Urine Protein (Negative) Urine Glucose (UA) (Negative) Urine Ketones (Negative) Urine Blood (Negative) Urine Nitrite (Negative) Urine Bilirubin (Negative) Urine Urobilinogen (<2.0) mg/dL Ur Leukocyte Esterase (Negative) 12/14/21 Range/Units 20:55 WBC (3.8-10.6) k/uL RBC (3.80-5.40) m/uL Hgb (11.4-16.0) gm/dL Hct (34.0-46.0) % MCV (80.0-100.0) fL MCH (25.0-35.0) pg MCHC (31.0-37.0) g/dL RDW (11.5-15.5) % Plt Count (150-450) k/uL MPV Neutrophils % % Lymphocytes % % Monocytes % % Eosinophils % % Basophils % % Neutrophils # (1.3-7.7) k/uL Lymphocytes # (1.0-4.8) k/uL Monocytes # (0-1.0) k/uL Eosinophils # (0-0.7) k/uL Basophils # (0-0.2) k/uL Sodium (137-145) mmol/L Potassium (3.5-5.1) mmol/L Chloride (98-107) mmol/L Carbon Dioxide (22-30) mmol/L Anion Gap mmol/L BUN (7-17) mg/dL Creatinine (0.52-1.04) mg/dL Est GFR (CKD-EPI)AfAm (>60 ml/min/1.73 sqM) Est GFR (CKD-EPI)NonAf (>60 ml/min/1.73 sqM) Glucose (74-99) mg/dL Calcium (8.4-10.2) mg/dL Total Bilirubin (0.2-1.3) mg/dL AST (14-36) U/L ALT (4-34) U/L Alkaline Phosphatase (38-126) U/L Creatine Kinase (30-135) U/L Total Protein (6.3-8.2) g/dL Albumin (3.5-5.0) g/dL Lipase (23-300) U/L Urine Color Yellow Urine Appearance Clear (Clear) Urine pH 6.0 (5.0-8.0) Ur Specific [place] 1.018 (1.001-1.035) Urine Protein Negative (Negative) Urine Glucose (UA) Negative (Negative) Urine Ketones Negative (Negative) Urine Blood Negative (Negative) Urine Nitrite Negative (Negative) Urine Bilirubin Negative (Negative) Urine Urobilinogen <2.0 (<2.0) mg/dL Ur Leukocyte Esterase Negative (Negative) - Radiology Data Radiology results: report reviewed, image reviewed (Imaging reviewed evidence of inflammatory response syndrome the area of the proximal sigmoid colon consistent with diverticulitis. Other diverticular changes are seen. Please see the complete report) Disposition Clinical Impression: Acute abdomen, Diverticulitis, Nausea & vomiting Disposition: ADMITTED IP TO THIS [facility] Condition: Fair Referrals: Nii Best MD [Primary Care Provider] - 1-2 days Decision Date: 12/14/21 Decision Time: 22:43
[2021-12-14 20:08] LABS: Basophils % (A) 0 %; Eosinophils # (A) 0.1 k/uL (0-0.7); Eosinophils % (A) 2 %; HCT 43.3 % (34.0-46.0); HGB 13.6 gm/dL (11.4-16.0); Lymphocytes # (A) 2.7 k/uL (1.0-4.8); Lymphocytes % (A) 34 %; MCH 28.5 pg (25.0-35.0); MCHC 31.5 g/dL (31.0-37.0); MCV 90.6 fL (80.0-100.0); Mean Platelet Volume 7.8; Monocytes # (A) 0.7 k/uL (0-1.0); Monocytes % (A) 8 %; Neutrophils # (A) 4.2 k/uL (1.3-7.7); Neutrophils % (A) 53 %; Platelet Count 294 k/uL (150-450); RBC 4.78 m/uL (3.80-5.40); RDW 13.6 % (11.5-15.5); WBC 7.8 k/uL (3.8-10.6)
[2021-12-14 20:26] LABS: Creatine Kinase 70 U/L (30-135); Lipase 67 U/L (23-300)
[2021-12-14 20:28] LABS: ALT 15 U/L (4-34); AST 21 U/L (14-36); African American GFR (CKD) >90 (>60 ml/min/1.73 sqM); Albumin 4.2 g/dL (3.5-5.0); Alkaline Phosphatase 73 U/L (38-126); Anion Gap 11 mmol/L; Blood Urea Nitrogen 9 mg/dL (7-17); Calcium 9.6 mg/dL (8.4-10.2); Carbon Dioxide 24 mmol/L (22-30); Chloride 103 mmol/L (98-107); Glucose 94 mg/dL (74-99); Non-African American GFR(CKD) >90 (>60 ml/min/1.73 sqM); Sodium 138 mmol/L (137-145); Total Bilirubin 0.3 mg/dL (0.2-1.3); Total Protein 6.7 g/dL (6.3-8.2)
[2021-12-14] MEDS ORDERED: ONDANSETRON 4 MG/2 ML VIAL IVP STA (20:28)
--- NOTE | 2021-12-14 20:48 | US ---
EXAMINATION TYPE: US transvaginal DATE OF EXAM: 12/14/2021 COMPARISON: NONE CLINICAL HISTORY: Left Lower quadrant abdominal pain. LLQ pain. Hysterectomy 20+ years ago. . TECHNIQUE: Transvaginal sonographic images of the pelvis were acquired. Date of LMP: years ago EXAM MEASUREMENTS: Uterus: Surgically absent Endometrial Stripe: Surgically absent Right Ovary: Not vis Left Ovary: Not vis 1. Uterus: Surgically absent 2. Endometrium: Surgically absent 3. Right Ovary: Obscured by overlying bowel gas 4. Left Ovary: Obscured by overlying bowel gas 5. Bilateral Adnexa: Filled with bowel 6. Posterior cul-de-sac: WNL IMPRESSION: No definite acute sonographic abnormality. Hysterectomy and nonvisualized ovaries.
[2021-12-14 21:09] LABS: Appearance,Urine Clear (Clear); Bilirubin,Urine Negative (Negative); Blood,Urine Negative (Negative); Color,Urine Yellow; Glucose,Urine (UA) Negative (Negative); Ketones,Urine Negative (Negative); Leukocyte Esterase,Urine Negative (Negative); Nitrite,Urine Negative (Negative); Protein,Urine Negative (Negative); Specific Gravity,Urine 1.018 (1.001-1.035); Urobilinogen,Urine <2.0 mg/dL (<2.0)
--- NOTE | 2021-12-14 22:10 | CT ---
EXAMINATION TYPE: CT abdomen pelvis wo/w con DATE OF EXAM: 12/14/2021 COMPARISON: None HISTORY: Lower abd pain CT DLP: 3474.8 mGycm Automated exposure control for dose reduction was used. CONTRAST: Performed with IV Contrast, patient injected with 100 mL of Isovue 300. Images obtained from the diaphragm to the floor of the pelvis with the IV contrast. There is also non contrast images from the diaphragm to the floor the pelvis . Heart size is normal. No pericardial effusion. Lung bases are clear. No pleural effusion. Liver and s pleen are intact. There are clips from cholecystectomy. The bile ducts are not dilated. There is no p ancreatic mass. The stomach is intact. There is no adrenal mass. Kidneys show satisfactory contrast opacification. There is no hydronephrosi s. The ureters are not dilated. No retroperitoneal adenopathy. The bladder distends smoothly. Urinary bladder is almost empty. No pelvic mass. There is hysterectomy. No inguinal hernia. No free fluid in the pelvis. The appendix appears normal. There is a 3 x 2 cm fat-containing umbilical hernia. There is some minimal fat stranding around the proximal sigmoid colon. There are sigmoid diverticula. There is no ascites or free air. No bowel obstruction. The lumbar vertebra appear intact. There is mu ltilevel spondylotic changes. There is mild lumbar levoscoliosis. There is multilevel vacuum disc and spur formation. No compression fracture. The bony pelvis is intact. The hip joints are intact. IMPRESSION: There is some minimal inflammation around the proximal sigmoid colon. This is minimal diverticulitis. Mild sigmoid diverticulosis. Normal appendix
[2021-12-14] MEDS ORDERED: NALOXONE 0.4 MG/ML 1 ML VIAL IV PRN (22:43)
[2021-12-14] MEDS ORDERED: LEVOFLOXACIN 750MG-D5W PMX 750 MG in DEXTROSE/WATER 1 150ML.BAG IVPB STA (22:47)
[2021-12-14] MEDS ORDERED: LEVOFLOXACIN 750MG-D5W PMX 750 MG in DEXTROSE/WATER 1 150ML.BAG IVPB ONE (22:56)
[2021-12-15] MEDS: SODIUM CHLORIDE 0.9% 1,000 ML IV SCH ×4 (00:08→20:48)
[2021-12-15] MEDS: HYDROmorphone 0.5 MG/0.5 ML SYRINGE IVP PRN ×6 (00:09→20:55)
[2021-12-15] MEDS: CALCIUM CARBONATE 500 MG CHEWABLE PO PRN ×3 (02:23→17:29)
[2021-12-15] MEDS: LEVOTHYROXINE 112 MCG TAB PO SCH (05:46)
[2021-12-15] MEDS: METOPROLOL SUCCINATE (ER) 25 MG TAB.ER.24H PO SCH (08:47)
[2021-12-15] MEDS: DULoxetine HCL 60 MG CAPSULE.DR PO SCH ×2 (08:47→20:48)
[2021-12-15] MEDS: PANTOPRAZOLE 40 MG/10 ML VIAL IV SCH (08:48)
[2021-12-15] MEDS ORDERED: MELATONIN 3 MG TABLET PO PRN (12:40)
[2021-12-15] MEDS: ENOXAPARIN 40 MG/0.4 ML SYRINGE SQ SCH (13:01)
[2021-12-15] MEDS: metroNIDAZOLE 500 MG TAB PO SCH ×3 (13:02→20:48)
--- NOTE | 2021-12-15 15:49 | P.HPIM ---
History of Present Illness H&P Date: 12/15/21 Chief Complaint: Abdominal pain This is a pleasant 56-year-old patient of Dr. Nii Best. Chronic stable medical conditions include atrial flutter, GERD, osteoarthritis, hypothyroid, DJD. Patient has history of bilateral reduction mammoplasty many years ago. Patient with 3 days been having increasing left lower quadrant abdominal pain. Significant nausea. No fever no chills. Only has a bowel movement every other day. Decreased GFR last to 3 days. She was diagnosed with a UTI 2 days ago and placed on oral antibiotics. She can't to see her family doctor, Dr. Best prior to being sent to. Computed tomography scan did show evidence of diverticulitis and was placed on Levaquin. This morning still having significant left lower quadrant pain. Review of systems: GEN.: Tired EYES: None HEENT: None NECK: None RESPIRATORY: None CARDIOVASCULAR: None GASTROINTESTINAL: As above GENITOURINARY: None MUSCULOSKELETAL: Joint pains LYMPHATICS: None HEMATOLOGICAL: None PSYCHIATRY: None NEUROLOGICAL: None Past medical history to include: Atrial flutter, GERD, osteoarthritis, hypothyroid, spinal arthritis, back surgery with laminectomy 1991, bilateral reduction mammoplasty Social history: Occasional smoking. Alcohol rarely. 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 Family history: Reviewed, noncontributory to presentation Physical examination: VITAL SIGNS: 98.2, 73, 18, 149 seconds 86, 99% room air GENERAL: BMI 42.9, laying in bed slightly uncomfortable EYES: Pupils equal. Conjunctiva normal. HEENT: External appearance of nose and ears normal, oral cavity grossly normal. NECK: JVD not raised; masses not palpable. HEART: First and second heart sounds are normal; no edema. BREAST: There is area of fluctuation at the inferior part of the right breast. Very tender. Surrounding area of redness extending up towards and on both the sides. LUNGS: Respiratory rate normal; clear to auscultation. ABDOMEN: Soft, left lower quadrant tenderness, no guarding rigidity, liver spleen not palpable, no masses palpable. PSYCH: Alert and oriented x3; mood and affect normal. NEUROLOGICAL: Cranial nerves grossly intact; no facial asymmetry, power and sensation grossly intact. LYMPHATICS: No lymph nodes palpable in the axilla and neck INVESTIGATIONS, reviewed in the clinical context: White count 7.8 kg globin 13.6 platelets are 94 sodium 1:30 potassium 4 creatinine 0.67 UA: Negative KUB: Stool [place] Ultrasound transvaginal: Uterus absent ovaries obscured gas CT abdomen pelvis with and without contrast: Some inflammation around the proxi mal sigmoid colon Assessment and plan: -Left lower quadrant pain for 3 days. Significant nausea. No fever no white count. Evidence of sigmoid diverticulitis on computed tomography scan. IV Levaquin. By mouth Flagyl. Liquid diet. Consult surgery to make show there is nothing else contribution. -Hypothyroid Synthroid 112 g daily -Morbid obesity BMI 42.9 Weight loss measures and follow with PCP -Anxiety, not over specified Cymbalta 60 mg twice a day -Paroxysmal atrial flutter Toprol-XL 25 mg daily Levaquin. Flagyl. Activity as tolerated. Consult surgery. Discussed with patient. Further plan depending on clinical course. Past Medical History Past Medical History: Atrial Flutter, GERD/Reflux, Osteoarthritis (OA), Thyroid Disorder Additional Past Medical History / Comment(s): past hx. 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 for, hypothroidism, sinus problems History of Any Multi-Drug Resistant Organisms: None Reported Past Surgical History: Back Surgery, Cholecystectomy, Heart Catheterization, Hysterectomy, Orthopedic Surgery, Tonsillectomy Additional Past Surgical History / Comment(s): laminectomy 1991; heart cath , ovarian cysts removed Past Anesthesia/Blood Transfusion Reactions: No Reported Reaction Additional Past Anesthesia/Blood Transfusion Reaction / Comment(s): one time episode of slow to wake up years ago Past Psychological History: No Psychological Hx Reported Smoking Status: Former smoker Medications and Allergies Home Medications Medication Instructions Recorded Confirmed Type DULoxetine HCL [Cymbalta] 60 mg PO BID 06/08/20 12/14/21 History Levothyroxine Sodium [Synthroid] 112 mcg PO DAILY 06/08/20 12/14/21 History Metoprolol Succinate (ER) [Toprol 25 mg PO DAILY 12/21/20 12/14/21 History XL] Allergies Allergy/AdvReac Type Severity Reaction Status Date / Time Penicillins Allergy Rash/Hives Verified 12/14/21 23:12 Sulfa (Sulfonamide Allergy Rash/Hives Verified 12/14/21 23:12 Antibiotics) vancomycin AdvReac Itching Verified 12/14/21 23:12 Paper tape AdvReac Rash/Hives Uncoded 10/04/21 11:39 Physical Exam Vitals: Vital Signs Temp Pulse Resp BP Pulse Ox 12/15/21 06:19 98 F 62 18 122/68 100 12/15/21 00:49 98.9 F 56 L 18 144/84 99 12/14/21 20:55 63 18 131/90 100 12/14/21 17:30 98.2 F 73 18 149/86 99 Intake and Output 12/14/21 12/15/21 12/15/21 22:59 06:59 14:59 Other: Weight 113.398 kg Results CBC & Chem 7: 12/14/21 19:41 12/14/21 19:41
[2021-12-15] MEDS: ONDANSETRON 4 MG/2 ML VIAL IVP PRN (17:30)
--- NOTE | 2021-12-15 18:37 | P.GSCN ---
History of Present Illness Consult date: 12/15/21 History of present illness: REASON FOR CONSULTATION: Abdominal pain HISTORY OF PRESENT ILLNESS: Carolyn Farrell is a 56-year-old female who reports over three-day history of left lower quadrant abdominal pain crampy in nature. Her WBC is normal. She is passing flatus. No current blood in stools. She is tolerating clear liquid diet. She was on antibiotics for suspected urinary tract infection. She was directed to the hospital due to failed outpatient management of her abdominal pain. Additional studies performed demonstrating colitis. General surgery is consulted for her abdominal pain. PAST MEDICAL HISTORY: 1. Morbid obesity due to excess calories 2. Body mass index of 42.9, initial 3. Hypothyroidism 4. Depressive disorder 5. Osteoarthritis of the lower back 6. Osteoarthritis bilateral hips 7. Osteoarthritis bilateral knees PAST SURGICAL HISTORY: 1. Cholecystectomy 2. Heart catheterization 3. Hysterectomy 4. Tonsillectomy 5. Laminectomy HOME MEDICATIONS: Reviewed. ALLERGIES: Reviewed SOCIAL HISTORY: Past tobacco use. FAMILY HISTORY: No family history of ulcerative colitis disease or Crohn's disease. Family history of morbid obesity. No lupus in the family. No reports of stomach or esophageal cancer. REVIEW OF ORGAN SYSTEMS: CONSTITUTIONAL: HEENT: Denies any active troubles with vision or hearing. ENDOCRINE: Denies diabetes. Has hypothyroidism. CARDIOVASCULAR: Past reports of palpitations or heart attacks or chest pain. Has hypertensive heart disease. RESPIRATORY: Has daytime somnolence. Has asthma. Has chronic obstructive pulmonary disease. GASTROINTESTINAL: Denies any bright red blood per rectum. No diarrhea. No constipation. GENITOURINARY: Denies bladder urgency. No recent blood in urine MUSCULOSKELETAL: Has lower back pain and joint pain. Has osteoarthritis of the knees. NEURO: No headaches. No seizure disorders. Has neuropathy. PSYCH: Has depression. No suicidal ideation. RHEUMATOLOGIC: No lupus. No rheumatoid arthritis. HEMATOLOGIC: Denies any abnormal bleeding or bruising. SKIN: No rash. No skin cancer. PHYSICAL EXAM: VITAL SIGNS: Reviewed. GENERAL: Well-developed in no acute distress. HEENT: No scleral icterus. Extraocular movements grossly intact. Hears conversational speech. No nasal drainage. NECK: Supple without lymphadenopathy. CHEST: Nonlabored respirations with equal bilateral excursions. CARDIOVASCULAR: Distal 2+ pulses. ABDOMEN: Obese, tender at left lower quadrant. MUSCULOSKELETAL: No clubbing, cyanosis. NEURO: No focal or lateralizing signs. Cranial nerves 2 through 12 grossly within normal limits. PSYCH: Appropriate affect. Alert and oriented to person, place and time. SKIN: Good skin turgor. Well perfused. LABS: Reviewed. WBC normal at 7.8. All labs and urine is normal. STUDIES: CT of the abdomen and pelvis independently reviewed with stool along the ascending colon. No moderated inflammation of the left lower quadrant found. Presence of gallbladder clips. This is my independent interpretation. REPORT: CT of the abdomen and pelvis reports described minimal inflammation of the sigmoid colon. Presence of umbilical hernia. Presence of sigmoid diverticulosis. ASSESSMENT: 1. Left lower quadrant pain with colitis 2. Morbid obesity due to excess calories, BMI 42.9 3. Hypothyroidism 4. Depressive disorder 5. Osteoarthritis of the lower back 6. Osteoarthritis bilateral hips 7. Osteoarthritis bilateral knees 8. Diverticulosis 9. Umbilical hernia PLAN: 1. Patient reports three-day history of left lower quadrant abdominal pain. WBC normal. CT of the abdomen and pelvis demonstrates mild inflammation of the sigmoid colon for diverticulitis. 2. Recommend IV antibiotics. Low-residue diet. 3. Disposition in 24-48 hours pending resolution with IV antibiotics. 4. Recommend low fiber diet for 2 weeks following discharge. 5. May follow up as outpatient. Past Medical History Past Medical History: Atrial Flutter, GERD/Reflux, Osteoarthritis (OA), Thyroid Disorder Additional Past Medical History / Comment(s): past hx. 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 for, hypothroidism, sinus problems History of Any Multi-Drug Resistant Organisms: None Reported Past Surgical History: Back Surgery, Cholecystectomy, Heart Catheterization, Hysterectomy, Orthopedic Surgery, Tonsillectomy Additional Past Surgical History / Comment(s): laminectomy 1991; heart cath 2015/2016, ovarian cysts removed Past Anesthesia/Blood Transfusion Reactions: No Reported Reaction Additional Past Anesthesia/Blood Transfusion Reaction / Comm: one time episode of slow to wake up years ago Past Psychological History: No Psychological Hx Reported Smoking Status: Former smoker Medications and Allergies Home Medications Medication Instructions Recorded Confirmed Type DULoxetine HCL [Cymbalta] 60 mg PO BID 06/08/20 12/14/21 History Levothyroxine Sodium [Synthroid] 112 mcg PO DAILY 06/08/20 12/14/21 History Metoprolol Succinate (ER) [Toprol 25 mg PO DAILY 12/21/20 12/14/21 History XL] Allergies Allergy/AdvReac Type Severity Reaction Status Date / Time Penicillins Allergy Rash/Hives Verified 12/14/21 23:12 Sulfa (Sulfonamide Allergy Rash/Hives Verified 12/14/21 23:12 Antibiotics) vancomycin AdvReac Itching Verified 12/14/21 23:12 Paper tape AdvReac Rash/Hives Uncoded 10/04/21 11:39 Surgical - Exam Vital Signs Temp Pulse Resp BP Pulse Ox 98.2 F 73 18 149/86 99 12/14/21 17:30 12/14/21 17:30 12/14/21 17:30 12/14/21 17:30 12/14/21 17:30 Results - Labs 12/14/21 19:41 12/14/21 19:41 Diabetes panel 12/14/21 Range/Units 19:41 Sodium 138 (137-145) mmol/L Potassium 4.0 (3.5-5.1) mmol/L Chloride 103 (98-107) mmol/L Carbon Dioxide 24 (22-30) mmol/L BUN 9 (7-17) mg/dL Creatinine 0.67 (0.52-1.04) mg/dL Glucose 94 (74-99) mg/dL Calcium 9.6 (8.4-10.2) mg/dL AST 21 (14-36) U/L ALT 15 (4-34) U/L Alkaline Phosphatase 73 (38-126) U/L Total Protein 6.7 (6.3-8.2) g/dL Albumin 4.2 (3.5-5.0) g/dL Calcium panel 12/14/21 Range/Units 19:41 Calcium 9.6 (8.4-10.2) mg/dL Albumin 4.2 (3.5-5.0) g/dL Pituitary panel 12/14/21 Range/Units 19:41 Sodium 138 (137-145) mmol/L Potassium 4.0 (3.5-5.1) mmol/L Chloride 103 (98-107) mmol/L Carbon Dioxide 24 (22-30) mmol/L BUN 9 (7-17) mg/dL Creatinine 0.67 (0.52-1.04) mg/dL Glucose 94 (74-99) mg/dL Calcium 9.6 (8.4-10.2) mg/dL Adrenal panel 12/14/21 Range/Units 19:41 Sodium 138 (137-145) mmol/L Potassium 4.0 (3.5-5.1) mmol/L Chloride 103 (98-107) mmol/L Carbon Dioxide 24 (22-30) mmol/L BUN 9 (7-17) mg/dL Creatinine 0.67 (0.52-1.04) mg/dL Glucose 94 (74-99) mg/dL Calcium 9.6 (8.4-10.2) mg/dL Total Bilirubin 0.3 (0.2-1.3) mg/dL AST 21 (14-36) U/L ALT 15 (4-34) U/L Alkaline Phosphatase 73 (38-126) U/L Total Protein 6.7 (6.3-8.2) g/dL Albumin 4.2 (3.5-5.0) g/dL
[2021-12-15] MEDS: LEVOFLOXACIN 750MG-D5W PMX 750 MG in DEXTROSE/WATER 1 150ML.BAG IVPB SCH (20:47)
[2021-12-15] MEDS: LORazepam 0.5 MG TAB PO PRN (20:56)
[2021-12-16] MEDS: SODIUM CHLORIDE 0.9% 1,000 ML IV SCH ×3 (05:49→21:40)
[2021-12-16] MEDS: LEVOTHYROXINE 112 MCG TAB PO SCH (05:49)
[2021-12-16] MEDS: ENOXAPARIN 40 MG/0.4 ML SYRINGE SQ SCH (07:31)
[2021-12-16] MEDS: METOPROLOL SUCCINATE (ER) 25 MG TAB.ER.24H PO SCH (07:31)
[2021-12-16] MEDS: DULoxetine HCL 60 MG CAPSULE.DR PO SCH ×2 (07:31→20:02)
[2021-12-16] MEDS: PANTOPRAZOLE 40 MG/10 ML VIAL IV SCH (07:31)
[2021-12-16] MEDS: HYDROmorphone 0.5 MG/0.5 ML SYRINGE IVP PRN ×4 (07:31→20:14)
[2021-12-16] MEDS: metroNIDAZOLE 500 MG TAB PO SCH ×4 (09:30→20:56)
--- NOTE | 2021-12-16 11:52 | P.PN ---
Subjective Progress Note Date: 12/16/21 Principal diagnosis: Diverticulitis Patient still having abdominal pain. Mostly in the left lower quadrant. Some heartburn symptoms as well. She is afebrile. No labs from today. Last white blood cell count was normal. Objective - Vital Signs Vital signs: Vital Signs Temp 97.6 F 12/16/21 08:00 Pulse 59 L 12/16/21 08:00 Resp 15 12/16/21 08:00 BP 116/77 12/16/21 08:00 Pulse Ox 99 12/16/21 08:00 FiO2 Intake & Output 12/15/21 12/16/21 12/16/21 18:59 06:59 18:59 Intake Total 100 Balance 100 Weight 113.398 kg Intake: Oral 100 Other: # Voids 1 - Exam Abdomen: Soft, nondistended, mild left lower quadrant tenderness - Labs CBC & Chem 7: 12/14/21 19:41 12/14/21 19:41 Labs: Microbiology - Last 24 Hours (Table) 12/15/21 00:20 Blood Culture - Preliminary Blood No Growth after 24 hours Assessment and Plan (1) Diverticulitis Narrative/Plan: 56-year-old female with left lower quadrant pain and mild sigmoid colon wall thickening on recent CAT scan consistent with diverticulitis. Continue antibiotics. Continue slowly advancing diet as tolerated. Current Visit: Yes Status: Acute Code(s): K57.92 - DVTRCLI OF INTEST, PART UNSP, W/O PERF OR ABSCESS W/O BLEED SNOMED Code(s): 747720929
--- NOTE | 2021-12-16 18:01 | P.PN ---
Progress Note - Text Progress Note Date: 12/16/21 Chief Complaint: Abdominal pain This is a pleasant 56-year-old patient of Dr. Nii Best. Chronic stable medical conditions include atrial flutter, GERD, osteoarthritis, hypothyroid, DJD. Patient has history of bilateral reduction mammoplasty many years ago. Patient with 3 days been having increasing left lower quadrant abdominal pain. Significant nausea. No fever no chills. Only has a bowel movement every other day. Decreased GFR last to 3 days. She was diagnosed with a UTI 2 days ago and placed on oral antibiotics. She can't to see her family doctor, Dr. Best prior to being sent to. Computed tomography scan did show evidence of diverticulitis and was placed on Levaquin. This morning still having significant left lower quadrant pain. December 16: Physical improvement. Still having significant left lower quadrant pain. No nausea vomiting. No fever. On IV Levaquin and Flagyl. Saline. For liquid diet. Seen by surgery. Active Medications Calcium Carbonate/Glycine (Calcium Carbonate 500 Mg Chewable) 1,000 mg PO QID PRN PRN Reason: Heartburn Last Admin: 12/15/21 17:29 Dose: 1,000 mg Duloxetine HCl (Duloxetine Hcl 60 Mg Capsule.) 60 mg PO BID [facility] Last Admin: 12/16/21 07:31 Dose: 60 mg Enoxaparin Sodium (Enoxaparin 40 Mg/0.4 Ml Syringe) 40 mg SQ DAILY [facility] Last Admin: 12/16/21 07:31 Dose: 40 mg Hydromorphone HCl (Hydromorphone 0.5 Mg/0.5 Ml Syringe) 0.5 mg IVP Q3HR PRN PRN Reason: Moderate Pain (Scale 4 to 6) Last Admin: 12/16/21 15:31 Dose: 0.5 mg Sodium Chloride (Saline 0.9%) 1,000 mls @ 130 mls/hr IV .Q7H42M [facility] Last Admin: 12/16/21 16:16 Dose: Not Given Levofloxacin 750 mg/ IV (Solution) 150 mls @ 100 mls/hr IVPB DAILY@2200 [facility]; Protocol Last Admin: 12/15/21 20:47 Dose: 100 mls/hr Levothyroxine Sodium (Levothyroxine 112 Mcg Tab) 112 mcg PO DAILY@0630 [facility] Last Admin: 12/16/21 05:49 Dose: 112 mcg Lorazepam (Lorazepam 0.5 Mg Tab) 0.5 mg PO Q6HR PRN PRN Reason: Anxiety Last Admin: 12/15/21 20:56 Dose: 0.5 mg Melatonin (Melatonin 3 Mg Tablet) 3 mg PO HS PRN PRN Reason: Insomnia Metoprolol Succinate (Metoprolol Succinate (Er) 25 Mg Tab.Er.24h) 25 mg PO DAILY [facility] Last Admin: 12/16/21 07:31 Dose: 25 mg Metronidazole (Metronidazole 500 Mg Tab) 500 mg PO QID [facility]; Protocol Last Admin: 12/16/21 15:31 Dose: 500 mg Naloxone HCl (Naloxone 0.4 Mg/Ml 1 Ml Vial) 0.2 mg IV Q2M PRN PRN Reason: Opioid Reversal Ondansetron HCl (Ondansetron 4 Mg/2 Ml Vial) 4 mg IVP Q8HR PRN PRN Reason: Nausea And Vomiting Last Admin: 12/15/21 17:30 Dose: 4 mg Pantoprazole Sodium (Pantoprazole 40 Mg/10 Ml Vial) 40 mg IV DAILY [facility] Last Admin: 12/16/21 07:31 Dose: 40 mg Past medical history to include: Atrial flutter, GERD, osteoarthritis, hypothyroid, spinal arthritis, back surgery with laminectomy 1991, bilateral reduction mammoplasty Social history: Occasional smoking. Alcohol rarely. 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 Family history: Reviewed, noncontributory to presentation Physical examination: VITAL SIGNS: 98.2, 76, 15, 140s/74, 96% on room air GENERAL: BMI 42.9, laying in bed not in distress EYES: Pupils equal. Conjunctiva normal. HEENT: External appearance of nose and ears normal, oral cavity grossly normal. NECK: JVD not raised; masses not palpable. HEART: First and second heart sounds are normal; no edema. LUNGS: Respiratory rate normal; clear to auscultation. ABDOMEN: Soft, left lower quadrant tenderness, no guarding rigidity, liver spleen not palpable, no masses palpable. PSYCH: Alert and oriented x3; mood and affect normal. INVESTIGATIONS, reviewed in the clinical context: White count 7.8 kg globin 13.6 platelets are 94 sodium 1:30 potassium 4 creatinine 0.67 UA: Negative KUB: Stool [place] Ultrasound transvaginal: Uterus absent ovaries obscured gas CT abdomen pelvis with and without contrast: Some inflammation around the proximal sigmoid colon Assessment and plan: -Left lower quadrant pain for 3 days. Significant nausea. No fever no white count. Evidence of sigmoid diverticulitis on computed tomography scan. IV Levaquin. By mouth Flagyl. full Liquid diet. Follow with surgery -Hypothyroid Synthroid 112 g daily -Morbid obesity BMI 42.9 Weight loss measures and follow with PCP -Anxiety, not over specified Cymbalta 60 mg twice a day -Paroxysmal atrial flutter Toprol-XL 25 mg daily Levaquin. Flagyl. Increase activity. Keep on full liquid diet. Follow with surgery. Discussed with patient.
[2021-12-16] MEDS: LEVOFLOXACIN 750MG-D5W PMX 750 MG in DEXTROSE/WATER 1 150ML.BAG IVPB SCH (20:02)
[2021-12-16] MEDS: KETOROLAC 15 MG/ML 1 ML VIAL IVP PRN (20:02)
[2021-12-16] MEDS: LORazepam 0.5 MG TAB PO PRN (20:10)
[2021-12-16] MEDS: ONDANSETRON 4 MG/2 ML VIAL IVP PRN (20:10)
[2021-12-17] MEDS: HYDROmorphone 0.5 MG/0.5 ML SYRINGE IVP PRN ×3 (00:33→08:08)
[2021-12-17] MEDS: ONDANSETRON 4 MG/2 ML VIAL IVP PRN (04:10)
[2021-12-17] MEDS: SODIUM CHLORIDE 0.9% 1,000 ML IV SCH ×3 (05:02→21:02)
[2021-12-17] MEDS: LEVOTHYROXINE 112 MCG TAB PO SCH (05:58)
[2021-12-17] MEDS: ENOXAPARIN 40 MG/0.4 ML SYRINGE SQ SCH (08:08)
[2021-12-17] MEDS: DULoxetine HCL 60 MG CAPSULE.DR PO SCH ×2 (08:08→21:01)
[2021-12-17] MEDS: metroNIDAZOLE 500 MG TAB PO SCH ×4 (08:08→21:01)
[2021-12-17] MEDS: METOPROLOL SUCCINATE (ER) 25 MG TAB.ER.24H PO SCH (08:08)
[2021-12-17] MEDS: PANTOPRAZOLE 40 MG/10 ML VIAL IV SCH (08:08)
--- NOTE | 2021-12-17 10:11 | P.PN ---
Subjective Progress Note Date: 12/17/21 Principal diagnosis: Diverticulitis Patient says she had a bad night. Still having pain. [place] sweaty at times. No fevers. No bowel movement. She is passing flatus. He is tolerating her full liquid diet Objective - Vital Signs Vital signs: Vital Signs Temp 97.6 F 12/17/21 08:00 Pulse 69 12/17/21 08:00 Resp 16 12/17/21 08:00 BP 119/76 12/17/21 08:00 Pulse Ox 99 12/17/21 08:00 FiO2 Intake & Output 12/16/21 12/17/21 12/17/21 18:59 06:59 18:59 Intake Total 218 Balance 218 Intake: Oral 218 Other: # Voids 2 1 - Exam Abdomen: Soft, nondistended, mild left lower quadrant tenderness - Labs CBC & Chem 7: 12/14/21 19:41 12/14/21 19:41 Labs: Microbiology - Last 24 Hours (Table) 12/15/21 00:20 Blood Culture - Preliminary Blood No Growth after 48 hours Assessment and Plan (1) Diverticulitis Narrative/Plan: Patient continues have more pain than would be expected by the recent CAT scan performed. Will check repeat CBC. Continue full liquids. Continue antibiotics. Current Visit: Yes Status: Acute Code(s): K57.92 - DVTRCLI OF INTEST, PART UNSP, W/O PERF OR ABSCESS W/O BLEED SNOMED Code(s): 754812619
[2021-12-17 12:07] LABS: Basophils % (A) 0 %; Eosinophils # (A) 0.1 k/uL (0-0.7); Eosinophils % (A) 2 %; HCT 38.3 % (34.0-46.0); HGB 12.1 gm/dL (11.4-16.0); Lymphocytes # (A) 1.1 k/uL (1.0-4.8); Lymphocytes % (A) 30 %; MCH 29.3 pg (25.0-35.0); MCHC 31.4 g/dL (31.0-37.0); MCV 93.1 fL (80.0-100.0); Mean Platelet Volume 7.8; Monocytes # (A) 0.3 k/uL (0-1.0); Monocytes % (A) 9 %; Neutrophils % (A) 57 %; Platelet Count 231 k/uL (150-450); RBC 4.12 m/uL (3.80-5.40); RDW 13.9 % (11.5-15.5); WBC 3.5 k/uL (3.8-10.6)
[2021-12-17] MEDS: IOPAMIDOL CONTRAST (ORAL USE) VIAL PO PRN ×2 (12:08→13:07)
[2021-12-17 12:26] LABS: ALT 186 U/L (4-34); AST 293 U/L (14-36); African American GFR (CKD) >90 (>60 ml/min/1.73 sqM); Albumin 3.4 g/dL (3.5-5.0); Albumin/Globulin Ratio 1.5; Alkaline Phosphatase 96 U/L (38-126); Anion Gap 5 mmol/L; Blood Urea Nitrogen 6 mg/dL (7-17); Calcium 8.9 mg/dL (8.4-10.2); Carbon Dioxide 31 mmol/L (22-30); Chloride 101 mmol/L (98-107); Globulin 2.3 g/dL; Glucose 108 mg/dL (74-99); Non-African American GFR(CKD) >90 (>60 ml/min/1.73 sqM); Potassium 4.2 mmol/L (3.5-5.1); Sodium 137 mmol/L (137-145); Total Bilirubin 0.4 mg/dL (0.2-1.3); Total Protein 5.7 g/dL (6.3-8.2)
--- NOTE | 2021-12-17 14:08 | CT ---
EXAMINATION TYPE: CT abdomen pelvis w con CT DLP: 7.4 mGycm, Automated exposure control for dose reduction was used. DATE OF EXAM: 12/17/2021 1:57 PM COMPARISON: CT abdomen pelvis most recent from 12/14/2021 . CLINICAL INDICATION:Female, 56 years old with history of persistent LLQ pain; Abdominal pain TECHNIQUE: Standard CT of the abdomen and pelvis following the administration of 100 cc of Isovue 3 00 IV contrast material and oral contrast. Coronal and sagittal reformats were performed. FINDINGS: LOWER CHEST: Posterior dependent subsegmental atelectasis is noted. ABDOMEN LIVER: Unremarkable GALLBLADDER AND BILE DUCTS: Gallbladder is surgically absent with mild intrahepatic and extra hepatic biliary dilatation likely physiologic and a postcholecystectomy change. No evidence of choledocholit hiasis. PANCREAS: Unremarkable. SPLEEN: Unremarkable. ADRENAL GLANDS: Unremarkable. KIDNEYS AND URETERS: No evidence of hydronephrosis or renal calculus. The kidneys enhance symmetrical ly without suspicious focal lesion. PELVIS BLADDER: Incompletely distended but grossly unremarkable. REPRODUCTIVE: The uterus is surgically absent. No suspicious adnexal mass. ABDOMEN & PELVIS STOMACH AND BOWEL: Small hiatal hernia, duodenum is unremarkable. The appendix is within normal limit s. Relatively unchanged fat stranding adjacent to the proximal sigmoid colon/descending colon junctio n in the left lower quadrant. Questionable diverticula in this location. No significant wall thickeni ng. Contrast is demonstrated within the distal esophagus which may related to reflux. No evidence of bowel obstruction. PERITONEUM: No evidence of pneumoperitoneum or free fluid. VASCULATURE: No evidence of aortic aneurysm. MUSCULOSKELETAL: Healing right lateral ninth rib fracture with callus formation redemonstrated. Moder ate multilevel degenerative disc disease. S-shaped curvature of the thoracolumbar spine. LYMPH NODES: No gross evidence for lymphadenopathy. SOFT TISSUE/ABDOMINAL WALL: Small fat filled umbilical hernia. Mild anasarca. IMPRESSION: Left lower quadrant perisigmoid/descending colon fat stranding redemonstrated with no significant wal l thickening of the colon with questionable diverticula. This may represent mild uncomplicated acute diverticulitis versus epiploic appendicitis which is a self-limiting condition.
--- NOTE | 2021-12-17 18:18 | P.PN ---
Progress Note - Text Progress Note Date: 12/17/21 Chief Complaint: Abdominal pain This is a pleasant 56-year-old patient of Dr. Nii Best. Chronic stable medical conditions include atrial flutter, GERD, osteoarthritis, hypothyroid, DJD. Patient has history of bilateral reduction mammoplasty many years ago. Patient with 3 days been having increasing left lower quadrant abdominal pain. Significant nausea. No fever no chills. Only has a bowel movement every other day. Decreased GFR last to 3 days. She was diagnosed with a UTI 2 days ago and placed on oral antibiotics. She can't to see her family doctor, Dr. Best prior to being sent to. Computed tomography scan did show evidence of diverticulitis and was placed on Levaquin. This morning still having significant left lower quadrant pain. December 16: Physical improvement. Still having significant left lower quadrant pain. No nausea vomiting. No fever. On IV Levaquin and Flagyl. Saline. For liquid diet. Seen by surgery. December 17: Has nausea. No vomiting. As per the nurse patient had some food brought from outside tolerated the same. Including from [employer]. No bowel movement. Discussed with Dr. Guerra from surgery. We'll repeat a computed tomography scan. No fever no white count. Some left lower quadrant pain. Active Medications Calcium Carbonate/Glycine (Calcium Carbonate 500 Mg Chewable) 1,000 mg PO QID PRN PRN Reason: Heartburn Last Admin: 12/15/21 17:29 Dose: 1,000 mg Duloxetine HCl (Duloxetine Hcl 60 Mg Capsule.) 60 mg PO BID [facility] Last Admin: 12/17/21 08:08 Dose: 60 mg Enoxaparin Sodium (Enoxaparin 40 Mg/0.4 Ml Syringe) 40 mg SQ DAILY [facility] Last Admin: 12/17/21 08:08 Dose: 40 mg Sodium Chloride (Saline 0.9%) 1,000 mls @ 130 mls/hr IV .Q7H42M [facility] Last Admin: 12/17/21 05:02 Dose: Not Given Levofloxacin 750 mg/ IV (Solution) 150 mls @ 100 mls/hr IVPB DAILY@2200 [facility]; Protocol Last Admin: 12/16/21 20:02 Dose: 100 mls/hr Ketorolac Tromethamine (Ketorolac 15 Mg/Ml 1 Ml Vial) 15 mg IVP Q6HR PRN PRN Reason: Pain Stop: 12/19/21 18:54 Last Admin: 12/16/21 20:02 Dose: 15 mg Levothyroxine Sodium (Levothyroxine 112 Mcg Tab) 112 mcg PO DAILY@0630 [facility] Last Admin: 12/17/21 05:58 Dose: 112 mcg Lorazepam (Lorazepam 0.5 Mg Tab) 0.5 mg PO Q6HR PRN PRN Reason: Anxiety Last Admin: 12/16/21 20:10 Dose: 0.5 mg Melatonin (Melatonin 3 Mg Tablet) 3 mg PO HS PRN PRN Reason: Insomnia Metoprolol Succinate (Metoprolol Succinate (Er) 25 Mg Tab.Er.24h) 25 mg PO DAILY [facility] Last Admin: 12/17/21 08:08 Dose: 25 mg Metronidazole (Metronidazole 500 Mg Tab) 500 mg PO QID [facility]; Protocol Last Admin: 12/17/21 18:13 Dose: 500 mg Naloxone HCl (Naloxone 0.4 Mg/Ml 1 Ml Vial) 0.2 mg IV Q2M PRN PRN Reason: Opioid Reversal Ondansetron HCl (Ondansetron 4 Mg/2 Ml Vial) 4 mg IVP Q8HR PRN PRN Reason: Nausea And Vomiting Last Admin: 12/17/21 04:10 Dose: 4 mg Past medical history to include: Atrial flutter, GERD, osteoarthritis, hypothyroid, spinal arthritis, back surgery with laminectomy 1991, bilateral reduction mammoplasty Social history: Occasional smoking. Alcohol rarely. 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 Family history: Reviewed, noncontributory to presentation Physical examination: VITAL SIGNS: 98.3, 35, 15, 1 27 x 87, 99% room air GENERAL: Laying in bed, comfortable EYES: Pupils equal. Conjunctiva normal. HEENT: External appearance of nose and ears normal, oral cavity grossly normal. NECK: JVD not raised; masses not palpable. HEART: First and second heart sounds are normal; no edema. LUNGS: Respiratory rate normal; clear to auscultation. ABDOMEN: Soft, some left lower quadrant tenderness, no guarding rigidity, liver spleen not palpable, no masses palpable. PSYCH: Alert and oriented x3; mood and affect normal. INVESTIGATIONS, reviewed in the clinical context: Computed tomography scan abdomen pelvis with contrast: Perisigmoid descending colon fat stranding. Redemonstrated. Sissy 4: White count 3.5 potassium 4.2 AST 293 ALT 186 White count 7.8 kg globin 13.6 platelets are 94 sodium 1:30 potassium 4 creatinine 0.67 UA: Negative KUB: Stool [place] Ultrasound transvaginal: Uterus absent ovaries obscured gas CT abdomen pelvis with and without contrast: Some inflammation around the proximal sigmoid colon Assessment and plan: -Left lower quadrant pain for 3 days before presentation.. Significant nausea. No fever no white count. Sigmoid diverticulitis. Repeat computed tomography scan done today. No worsening. IV Levaquin. By mouth Flagyl. full Liquid diet. Follow with surgery -New elevation of liver enzymes Liver ultrasound. Acute hepatitis panel. -Hypothyroid Synthroid 112 g daily -Morbid obesity BMI 42.9 Weight loss measures and follow with PCP -Anxiety, not over specified Cymbalta 60 mg twice a day -Paroxysmal atrial flutter Toprol-XL 25 mg daily Computed tomography scan of the abdomen was noted. Given increased LFTs the liver ultrasound. Acute hepatitis panel. Care was discussed Dr. Guerra and the patient on her today. I spent today about 40 minutes with over 25 minutes of discussion.
[2021-12-17] MEDS ORDERED: LEVOFLOXACIN 750 MG TAB PO SCH (21:00)
[2021-12-17] MEDS: KETOROLAC 15 MG/ML 1 ML VIAL IVP PRN (21:22)
[2021-12-17] MEDS: LORazepam 0.5 MG TAB PO PRN (22:59)
[2021-12-18] MEDS: SODIUM CHLORIDE 0.9% 1,000 ML IV SCH ×2 (01:19→14:50)
[2021-12-18] MEDS: LEVOTHYROXINE 112 MCG TAB PO SCH (05:56)
[2021-12-18 06:38] LABS: Basophils % (A) 0 %; Eosinophils # (A) 0.1 k/uL (0-0.7); Eosinophils % (A) 2 %; HCT 36.6 % (34.0-46.0); HGB 11.9 gm/dL (11.4-16.0); Lymphocytes # (A) 1.5 k/uL (1.0-4.8); Lymphocytes % (A) 33 %; MCH 29.9 pg (25.0-35.0); MCHC 32.6 g/dL (31.0-37.0); MCV 91.6 fL (80.0-100.0); Mean Platelet Volume 7.9; Monocytes # (A) 0.4 k/uL (0-1.0); Monocytes % (A) 8 %; Neutrophils # (A) 2.4 k/uL (1.3-7.7); Neutrophils % (A) 55 %; Platelet Count 233 k/uL (150-450); RBC 3.99 m/uL (3.80-5.40); RDW 13.9 % (11.5-15.5); WBC 4.4 k/uL (3.8-10.6)
[2021-12-18 07:09] LABS: ALT 131 U/L (4-34); AST 92 U/L (14-36); African American GFR (CKD) >90 (>60 ml/min/1.73 sqM); Albumin 3.2 g/dL (3.5-5.0); Albumin/Globulin Ratio 1.4; Alkaline Phosphatase 89 U/L (38-126); Anion Gap 5 mmol/L; Blood Urea Nitrogen 5 mg/dL (7-17); Carbon Dioxide 30 mmol/L (22-30); Chloride 103 mmol/L (98-107); Globulin 2.3 g/dL; Glucose 96 mg/dL (74-99); Non-African American GFR(CKD) 90 (>60 ml/min/1.73 sqM); Potassium 3.9 mmol/L (3.5-5.1); Sodium 138 mmol/L (137-145); Total Bilirubin 0.2 mg/dL (0.2-1.3); Total Protein 5.5 g/dL (6.3-8.2)
[2021-12-18 07:25] VITALS: RESP 18
--- NOTE | 2021-12-18 08:03 | US ---
EXAMINATION TYPE: US abdomen limited DATE OF EXAM: 12/18/2021 COMPARISON: CT 12/17/2021 CLINICAL HISTORY: Acutely elevated LFTs.. TECHNIQUE: Multiple sonographic images of the right upper quadrant are obtained. FINDINGS: EXAM MEASUREMENTS: Liver Length: 12.3 cm Gallbladder Wall: Surgically absent CBD: 0.9 cm Right Kidney: 10.2 x 4.5 x 5.5 cm Pancreas: not well visualized due to over lying bowel gas, Liver: difficult to penetrate. No focal lesion or intrahepatic biliary dilatation. Gallbladder: Surgically absent CBD: measures 0.9 cm which is not unexpected in the setting of cholecystectomy. Right Kidney: No hydronephrosis or masses seen. No shadowing calculi. IMPRESSION: No acute process.
[2021-12-18] MEDS: metroNIDAZOLE 500 MG TAB PO SCH (08:50)
[2021-12-18] MEDS: DULoxetine HCL 60 MG CAPSULE.DR PO SCH (08:51)
[2021-12-18] MEDS: METOPROLOL SUCCINATE (ER) 25 MG TAB.ER.24H PO SCH (08:51)
[2021-12-18] MEDS: ENOXAPARIN 40 MG/0.4 ML SYRINGE SQ SCH (08:51)
[2021-12-18 09:10] LABS: Hepatitis A Antibody IgM Nonreactive (Nonreactive); Hepatitis C IgG Antibody Nonreactive (Nonreactive)
[2021-12-18 09:44] LABS: Hepatitis B Surface Antigen Nonreactive (Nonreactive)
--- NOTE | 2021-12-18 10:31 | P.PN ---
Subjective Progress Note Date: 12/18/21 Principal diagnosis: Diverticulitis Patient says she would like to go home today. She says her pain is improved. Repeat CAT scan shows mild persistent inflammation adjacent to the sigmoid colon. Either diverticulitis focally or epiploic appendage gastritis suspected. Abdominal ultrasound was also performed showing no definite abnormalities. Objective - Vital Signs Vital signs: Vital Signs Temp 98.3 F 12/18/21 07:01 Pulse 73 12/18/21 07:01 Resp 18 12/18/21 07:01 BP 126/79 12/18/21 07:01 Pulse Ox 98 12/18/21 07:01 FiO2 Intake & Output 12/17/21 12/18/21 12/18/21 18:59 06:59 18:59 Intake Total 236 180 Balance 236 180 Intake: Oral 236 180 Other: # Voids 2 1 - Exam Abdomen: Soft, nondistended, mild left lower quadrant tenderness - Labs CBC & Chem 7: 12/18/21 06:10 12/18/21 06:10 Labs: Abnormal Lab Results - Last 24 Hours (Table) 12/17/21 12/17/21 12/18/21 Range/Units 11:48 11:48 06:10 WBC 3.5 L (3.8-10.6) k/uL Carbon Dioxide 31 H (22-30) mmol/L BUN 6 L 5 L (7-17) mg/dL Glucose 108 H (74-99) mg/dL AST 293 H 92 H (14-36) U/L ALT 186 H 131 H (4-34) U/L Total Protein 5.7 L 5.5 L (6.3-8.2) g/dL Albumin 3.4 L 3.2 L (3.5-5.0) g/dL Microbiology - Last 24 Hours (Table) 12/15/21 00:20 Blood Culture - Preliminary Blood No Growth after 72 hours Assessment and Plan (1) Diverticulitis Narrative/Plan: Patient doing better today. Continue diet as tolerated. May discharge. Fol low-up as needed. Current Visit: Yes Status: Acute Code(s): K57.92 - DVTRCLI OF INTEST, PART UNSP, W/O PERF OR ABSCESS W/O BLEED SNOMED Code(s): 746490508
[2021-12-18 12:20] LABS: Hepatitis B Core IgM Nonreactive (Nonreactive)
[2021-12-18 14:22] VITALS: BP 99/67; PULSE 85; TEMP 98.6
--- NOTE | 2021-12-18 15:47 | P.DS ---
Providers Date of admission: 12/14/21 22:43 Expected date of discharge: 12/18/21 Attending physician: Ming Jackson Consults: 12/14/21 22:48 Consult Physician Routine Consulting Provider: Rachel Diaz Consult Reason/Comments: Abdominal pain, diverticulitis Do you want consulting provider notified?: Yes, Notify in am Primary care physician: Nii Best [facility] Course: Chief Complaint: Abdominal pain This is a pleasant 56-year-old patient of Dr. Nii Best. Chronic stable medical conditions include atrial flutter, GERD, osteoarthritis, hypothyroid, DJD. Patient has history of bilateral reduction mammoplasty many years ago. Patient with 3 days been having increasing left lower quadrant abdominal pain. Significant nausea. No fever no chills. Only has a bowel movement every other day. Decreased GFR last to 3 days. She was diagnosed with a UTI 2 days ago and placed on oral antibiotics. She can't to see her family doctor, Dr. Best prior to being sent to. Computed tomography scan did show evidence of diverticulitis and was placed on Levaquin. This morning still having significant left lower quadrant pain. December 16: Physical improvement. Still having significant left lower quadrant pain. No nausea vomiting. No fever. On IV Levaquin and Flagyl. Saline. For liquid diet. Seen by surgery. December 17: Has nausea. No vomiting. As per the nurse patient had some food brought from outside tolerated the same. Including from [employer]. No bowel movement. Discussed with Dr. Guerra from surgery. We'll repeat a computed tomography scan. No fever no white count. Some left lower quadrant pain. December 18: Ultrasound of the abdomen unremarkable. Tolerating diet. Abdominal pain better. Abdominal ultrasound unremarkable. LFTs coming down. Possible cholestatic hepatitis drug-induced. Diet discussed with the patient. Discharged on short course of Levaquin. Have patient follow up with Dr. Guerra outpatient. Questions answered Discussion and discharge planning more than 35 minutes Past medical history to include: Atrial flutter, GERD, osteoarthritis, hypothyroid, spinal arthritis, back surgery with laminectomy 1991, bilateral reduction mammoplasty Social history: Occasional smoking. Alcohol rarely. 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 Family history: Reviewed, noncontributory to presentation Physical examination: VITAL SIGNS: 98.6, 85, 18, 99/67, 100% room air GENERAL: Laying in bed, comfortable EYES: Pupils equal. Conjunctiva normal. HEENT: External appearance of nose and ears normal, oral cavity grossly normal. NECK: JVD not raised; masses not palpable. HEART: First and second heart sounds are normal; no edema. LUNGS: Respiratory rate normal; clear to auscultation. ABDOMEN: Soft, minimal lower quadrant tenderness, no guarding rigidity, liver spleen not palpable, no masses palpable. PSYCH: Alert and oriented x3; mood and affect normal. INVESTIGATIONS, reviewed in the clinical context: December 18: White count 4.4 potassium 3.9 AST 92 ALT 131. Acute hepatitis screen: Negative Liver ultrasound: Unremarkable Computed tomography scan abdomen pelvis with contrast: Perisigmoid descending colon fat stranding. Redemonstrated. December 17: White count 3.5 potassium 4.2 AST 293 ALT 186 White count 7.8 kg globin 13.6 platelets are 94 sodium 1:30 potassium 4 creatinine 0.67 UA: Negative KUB: Stool Benoit Ultrasound transvaginal: Uterus absent ovaries obscured gas CT abdomen pelvis with and without contrast: Some inflammation around the proximal sigmoid colon Assessment and plan: -Left lower quadrant pain for 3 days before presentation.. Significant nausea. No fever no white count. Sigmoid diverticulitis. Repeat computed tomography scan done -minimal changes. Discharged the short course of Levaquin. Follow up with Dr. Guerra outpatient. -Acute cholestatic hepatitis likely drug-induced. Improving Liver ultrasound-unremarkable. Acute hepatitis panel-negative. -Hypothyroid Synthroid 112 g daily -Morbid obesity BMI 42.9 Weight loss measures and follow with PCP -Anxiety, not over specified Cymbalta 60 mg twice a day -Paroxysmal atrial flutter Toprol-XL 25 mg daily Disposition: Home Plan - Discharge Summary Discharge Rx Participant: No New Discharge Prescriptions: New Levofloxacin [Levaquin] 750 mg PO HS #5 tab Continue DULoxetine HCL [Cymbalta] 60 mg PO BID Levothyroxine Sodium [Synthroid] 112 mcg PO DAILY Metoprolol Succinate (ER) [Toprol XL] 25 mg PO DAILY Discharge Medication List DULoxetine HCL [Cymbalta] 60 mg PO BID 06/08/20 [History] Levothyroxine Sodium [Synthroid] 112 mcg PO DAILY 06/08/20 [History] Metoprolol Succinate (ER) [Toprol XL] 25 mg PO DAILY 12/21/20 [History] Levofloxacin [Levaquin] 750 mg PO HS #5 tab 12/18/21 [Rx] Follow up Appointment(s)/Referral(s): Rachel Diaz MD [STAFF PHYSICIAN] - 01/02/22 (Call for appointment ) Nii Best MD [Primary Care Provider] - 1-2 days Patient Instructions/Handouts: Diverticulitis (DC), Low Fiber Diet (DC), Diverticulitis Diet (ED)
== END 2021-12-18 15:18 | disposition home or self-care (01) | DRG 392 ==
LOC: EC 16:53 → 5NMEDONC 22:43 → 6NMEDSUR 12-15 15:20
PROVIDERS: ADMIT Hospitalist; ATTEND Hospitalist
DX: K57.32 Diverticulitis of large intestine without perforation or abscess without bleeding (principal); Z68.41 Body mass index [BMI] 40.0-44.9, adult; N39.0 Urinary tract infection, site not specified; I48.92 Unspecified atrial flutter; E66.01 Morbid (severe) obesity due to excess calories; T50.905A Adverse effect of unspecified drugs, medicaments and biological substances, initial encounter; E03.9 Hypothyroidism, unspecified; Z79.890 Hormone replacement therapy; F32.A Depression, unspecified; F41.9 Anxiety disorder, unspecified; G47.00 Insomnia, unspecified; K21.9 Gastro-esophageal reflux disease without esophagitis; K29.70 Gastritis, unspecified, without bleeding; K75.89 Other specified inflammatory liver diseases; K52.9 Noninfective gastroenteritis and colitis, unspecified; M16.0 Bilateral primary osteoarthritis of hip; M17.0 Bilateral primary osteoarthritis of knee; M47.9 Spondylosis, unspecified; Z79.899 Other long term (current) drug therapy; Z87.891 Personal history of nicotine dependence; Z90.710 Acquired absence of both cervix and uterus; Z90.49 Acquired absence of other specified parts of digestive tract; Z88.0 Allergy status to penicillin; Z88.2 Allergy status to sulfonamides; Z88.1 Allergy status to other antibiotic agents; X58.XXXA Exposure to other specified factors, initial encounter
CPT/HCPCS: 36415; 74018; 74177; 74178; 76705; 76830; 80053; 80074; 81003; 82550; 83690; 85025; 87040; 96365; 96366; 96372; 96375; 99285

== ENCOUNTER → 2022-07-20 | Outpatient (CLI) | payer MEDICARE ==
--- NOTE | 2022-07-20 09:45 | MM ---
Reason for Exam: Clinical finding. Indicated Problems: Pain of the right side (Focal) for 1 Year(s) : at area of abcess. Patient History: Menarche at age 14. First Full-Term at age 24. Hysterectomy at age 30. Patient has history of breast feeding. Patient used Estrogen and Progesterone for 5 years. Risk Values: Talia 5 year model risk: 1.1%. NCI Lifetime model risk: 7.4%. Prior Study Comparison: No prior studies available for comparison. Tissue Density: There are scattered fibroglandular densities. Findings: Analyzed By CAD. No suspicious calcifications or distortion within either breast. No suspicious mass within the left breast. 3 mm round mass within the upper outer quadrant of the right breast at middle to posterior depth. No suspicious calcifications or distortion within either breast. No suspicious mass within the left breast. 3 mm round circumscribed equal density mass within the upper outer quadrant of the right breast at middle to posterior depth. Overall Assessment: Incomplete: need additional imaging evaluation, BI-RAD 0 Management: Diagnostic Breast Ultrasound of the right breast. A clinical breast exam by your physician is recommended on an annual basis and results should be correlated with mammographic findings. This exam should not preclude additional follow-up of suspicious palpable abnormalities. Results were given to the patient verbally at the time of exam. Electronically signed and approved by: Tim Bowling D.O.
--- NOTE | 2022-07-20 10:29 | USB ---
Reason for Exam: Additional evaluation requested from abnormal screening. Patient History: Menarche at age 14. First Full-Term at age 24. Hysterectomy at age 30. Patient has history of breast feeding. Patient used Estrogen and Progesterone for 5 years. 2000, Bilateral Reduction. Risk Values: Talia 5 year model risk: 1.1%. NCI Lifetime model risk: 7.4%. Technique: Method: Targeted. Prior Study Comparison: 12/21/2020 Right Diagnostic Ultrasound, [facility]. Findings: The upper outer quadrant of the right breast, the area of palpable concern of the right breast, the axilla of the right breast and the retroareolar of the right breast were scanned. Targeted ultrasound of the right breast area of concern from 5-7 o'clock was performed with additional evaluation at the 9 to 12:00 region, nipple and axillary regions. Scarring demonstrated within the area of concern is 5-7 o'clock at site of prior breast abscess. No organized fluid collection or mass identified in this region. There is a 3 mm round thin-walled likely mass within the right breast at 9:00 7 cm the nipple corresponding to mammography. This is parallel in orientation and well-circumscribed with suggested hypoechoic appearance. No posterior features identified. Overall Assessment: Probably benign, BI-RAD 3 Management: Diagnostic Breast Ultrasound of the right breast in 6 months. A clinical breast exam by your physician is recommended on an annual basis and results should be correlated with mammographic findings. This exam should not preclude additional follow-up of suspicious palpable abnormalities. Results were given to the patient verbally at the time of exam. Electronically signed and approved by: Tim Bowling D.O.
== END | disposition home or self-care (01) ==
LOC: RADMAMWWP 08:53
PROVIDERS: ATTEND Surgery
DX: N64.4 Mastodynia (principal); N64.52 Nipple discharge
CPT/HCPCS: 77066; 76642; G0279; 77062

== ENCOUNTER → 2022-10-05 | Outpatient (CLI) | payer MEDICARE ==
[2022-10-05 11:41] VITALS: BP 126/74; PULSE 71; RESP 17; TEMP 98.3
--- NOTE | 2022-10-05 11:46 | P.PN ---
Subjective Progress Note Date: 10/05/22 Principal diagnosis: Bilateral chronic abscess right breast/fibrocystic breast changes chronic right breast abscess 06-20-22 Carolyn is a 57-year-old white female seen in 2020 as an inpatient who states she noticed a pimple like area in the inferior aspect of her right breast. This became increasingly tender and reddened with increased erythema over the inferior aspect of the breast. This had not drained at all. The patient did have some fever and chills. The patient was started on outpatient Bactrim without any resolution. She was seen in [place] and sent to our emergency room. The patient did have a reduction mammoplasty at the age of 37. The patient had not had a mammogram for approximately 2 years. Patient had an ultrasound performed on 9820 this revealed a 3 cm complex area within the right breast at the 6 o'clock position She underwent I&D in the operating room on 12-21-20. 15 mL of purulent drainage was noted from a complex cystic area. She was last seen here on . At that time her packing was to be changed daily and she was supposed to follow up in 2 weeks. She was in wound care after for about three months. When she was done with wound care she was told it was not completely healed on the inside. She has had approximately 4 episodes where this has flared up again and she has required antibiotics. She states at this time she is having some drainage from the site. She has had drainage intermittently since the abscess was drained in 2020. This time she does not have any fever or chills. She has not had a mammogram for many years. It is painful with any pressure. 10-05-22 The patient comes in today for results of bilateral mammogram and ultrasound of the right breast. These were performed on 4722. The findings were no suspicious calcification just distortion within either breast. No suspicious mass within the left breast. 10 mm round mass within the upper quadrant of the right breast and middle to posterior depth. An ultrasound was performed of this area. Ultrasound revealed site of prior breast abscess no organized fluid collection or mass identified. A 3 millimeter round thin-walled mass within the right breast corresponding to the mammographic change. This is felt to be probably benign and repeat ultrasound in 6 months of the right breast area recommended. She is not complaining of any drainage from the inferior aspect of the right breast at this time. Caffeine: 2 cups per day Nicotine: Occasional Chocolate: Occasional Past surgical history: Breast reduction Cholecystectomy Laminectomy Tonsillectomy Hysterectomy right breast abscess drained sinus surgery Medical history: Arthritis Hypothyroid Hormonal history: Menarche: 14 , 3, patient had twins, and 10 age of first 24, control pills: Short time Menopause: Hysterectomy at 30 Social history: Nicotine: Negative Alcohol: Negative Marijuana: Negative - Constitutional Constitutional: Reports chills - EENT Eyes: denies blurred vision, denies pain Ears: deny: decreased hearing - Breasts Breasts: bilateral: as per HPI - Cardiovascular Cardiovascular: Denies chest pain, Denies shortness of breath - Respiratory Respiratory: Denies cough - Gastrointestinal Gastrointestinal: Denies abdominal pain, Denies diarrhea, Denies nausea, Denies vomiting - Genitourinary (Female) Genitourinary: Denies dysuria, Denies hematuria - Menstruation Menstruation: Reports post hysterectomy - Musculoskeletal Comment: Arthritis - Integumentary Comment: Cellulitis right breast with abscess and inferior aspect of right breast - Neurological Neurological: Denies numbness, Denies weakness - Psychiatric Psychiatric: Denies anxiety, Denies depression - Hematologic/Lymphatic Comment: Negative Past Medical History Past Medical History: Atrial Flutter, GERD/Reflux, Osteoarthritis (OA), Thyroid Disorder Additional Past Medical History / Comment(s): a-flutter d/t thyroid issues; buristis, spinal arthritis; DDD; hypothroidism History of Any Multi-Drug Resistant Organisms: None Reported Past Surgical History: Back Surgery, Cholecystectomy, Heart Catheterization, Hysterectomy, Orthopedic Surgery, Tonsillectomy Additional Past Surgical History / Comment(s): laminectomy 1991; heart cath Past Anesthesia/Blood Transfusion Reactions: No Reported Reaction Past Psychological History: No Psychological Hx Reported Smoking Status: Light tobacco smoker Past Alcohol Use History: Rare Past Drug Use History: None Reported Medications and Allergies Home Medications Medication Instructions Recorded Confirmed Type DULoxetine HCL [Cymbalta] 60 mg PO BID 06/08/20 12/21/20 History Levothyroxine Sodium [Synthroid] 112 mcg PO DAILY 06/08/20 12/21/20 History Ibuprofen 800 mg PO Q8H PRN 12/21/20 12/21/20 History Metoprolol Succinate (ER) [Toprol 25 mg PO DAILY 12/21/20 12/21/20 History Xl] Sulfamethoxazole/Trimethoprim 1 tab PO BID 12/21/20 12/21/20 History [Sulfamethoxazole-Tmp Ds Tablet] Allergies Allergy/AdvReac Type Severity Reaction Status Date / Time Penicillins Allergy Rash/Hives Verified 12/21/20 20:02 Objective - Constitutional General appearance: Present: cooperative - EENT Eyes: Present: EOMI ENT: Present: hearing grossly normal - Neck Neck: Present: normal ROM - Respiratory Respiratory: bilateral: CTA - Cardiovascular Rhythm: regular Heart sounds: normal: S1, S2 - Gastrointestinal General gastrointestinal: Present: soft - Integumentary Integumentary: Present: normal turgor - Musculoskeletal Musculoskeletal: Present: gait normal - Psychiatric Psychiatric: Present: A&O x's 3, appropriate affect, intact judgment & insight - Additional findings Additional findings: Breast Exam: Bra: 38C Inspection: bilateral grade 2 ptosis, postoperative changes from bilateral breast reduction Palpation: Right breast: Multiple positional exam fibrocystic changes no dominant masses or nodules of concern Under the incision on the right breast at the inframammary fold the area of prior drainage has completely healed at this time Right axilla: No adenopathy of concern Left breast: Multiple positional exam fibrocystic changes no dominant masses or nodules of concern left Axilla: No adenopathy of concern Assessment and Plan Assessment: Impression: Arthritis Hypothyroid chronic draining abscess under right breast healed at this time Plan: bilateral mammogram done 07-20-22 due in one year Ultrasound right breast particular attention 9:00 area in January with physician exam at that time CC: Dr. Jones
== END ==
LOC: WWCWWP 11:27
PROVIDERS: ATTEND Surgery
DX: D05.11 Intraductal carcinoma in situ of right breast (principal); M19.90 Unspecified osteoarthritis, unspecified site; E03.9 Hypothyroidism, unspecified; N60.81 Other benign mammary dysplasias of right breast; Z88.0 Allergy status to penicillin; Z88.2 Allergy status to sulfonamides; Z91.048 Other nonmedicinal substance allergy status; Z88.1 Allergy status to other antibiotic agents; Z79.890 Hormone replacement therapy

== ENCOUNTER → 2023-03-12 | Outpatient (CLI) | payer MEDICARE ==
--- NOTE | 2023-03-15 06:26 | MR ---
EXAMINATION TYPE: MR shoulder LT wo con DATE OF EXAM: 03/12/2023 COMPARISON: None. HISTORY: Left shoulder pain and limited range of motion for 6 months with difficulty raising arm over head. TECHNIQUE: Multiplanar, multisequence imaging of the left shoulder is performed without contrast. FINDINGS: Rotator Cuff: Intact supraspinatus and infraspinatus tendons. Intact subscapularis tendon. Rotator cu ff muscle bulk is preserved Acromioclavicular Joint: Moderate narrowing with mild to moderate capsular hypertrophy. Loss of under lying fat plane anteriorly for reference coronal image 10 and sagittal image 12. Glenohumeral Joint: Small to moderate size joint effusion. No significant spurring. Labrum: Increased signal superior labrum felt to reflect degenerative tearing. Biceps Tendon: The long head of biceps is in normal location within bicipital groove. Increased signa l intracapsular portion. Bone marrow signal: No focal abnormal marrow signal is appreciated. Other: No additional significant abnormality is appreciated. IMPRESSION: 1. AC joint arthropathy with suggestion of underlying impingement. Correlate clinically. 2. Tendinosis/partial tearing of the long head of biceps tendon. Superior labral tear thought degener ative in etiology.
== END | disposition home or self-care (01) ==
LOC: RADMRIMAIN 18:49
PROVIDERS: ATTEND Pediatrics
DX: M19.012 Primary osteoarthritis, left shoulder (principal); M25.812 Other specified joint disorders, left shoulder; M67.814 Other specified disorders of tendon, left shoulder

== ENCOUNTER → 2023-03-13 | Outpatient (CLI) | payer MEDICARE ==
[2023-03-14 10:23] VITALS: BP 121/83; PULSE 101; RESP 16; TEMP 98.2; BMI 44.1
--- NOTE | 2023-04-01 09:28 | P.HPBAR ---
Bariatric H&P - History & Physicial H&P Date: 03/13/23 History & Physicial: Visit/CC: Pursuing surgery again Patient initial contact: Initial weight: 116.573 kg Initial weight in pounds: 257.00 Height: 5 ft 4 in Initial BMI: 44.1 Last weight: Current weight: 116.573 kg Current weight in pounds: 257.00 Current BMI: 44.1 [place] body weight (based on NIH guidelines): 54.431 kg Excess body weight loss: 0.0% The patient is a 57 year-old F who presents for Bariatric Assessment. patient presents today for presurgical visit she had started the process for bariatric surgery one year ago her pcp was not supportive of her doing the surgery so she stopped the process she has new pcp now health hx and medications updated today patient is interested in sleeve gastrectomy procedure reviewed patient to make psych eval appt orders for labs ekg and urine nicotine provided to patient today we will schedule egd Past Medical History Past Medical History: Atrial Flutter, GERD/Reflux, Osteoarthritis (OA), Thyroid Disorder Additional Past Medical History / Comment(s): past hx. 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 for, hypothroidism, sinus problems, diverticulitis dec 2021 History of Any Multi-Drug Resistant Organisms: None Reported Past Surgical History: Back Surgery, Breast Surgery, Cholecystectomy, Heart Catheterization, Hysterectomy, Orthopedic Surgery, Tonsillectomy Additional Past Surgical History / Comment(s): laminectomy 1991; heart cath , ovarian cysts removed, right breast abscess 2020 Past Anesthesia/Blood Transfusion Reactions: No Reported Reaction Additional Past Anesthesia/Blood Transfusion Reaction / Comm: one time episode of slow to wake up years ago Past Psychological History: No Psychological Hx Reported Additional Psychological History / Comment(s): no issues since thyroid issues Smoking Status: Former smoker Past Alcohol Use History: Occasional Additional Past Alcohol Use History / Comment(s): quit smoking a year ago, only smoked occasionally not daily Past Drug Use History: None Reported Surgical - Exam Vital Signs Temp Pulse Resp BP 98.2 F 101 H 16 121/83 03/14/23 10:06 03/14/23 10:06 03/14/23 10:06 03/14/23 10:06 Bariatric Checklist Checklist: Plan: Checklist: EGD: 1. Hiatal hernia: 2. H. Pylori: HgbA1c: Vitamin D: Smoking: Primary care physician referral: Dr. Nicholson Psychiatry clearance: Cardiology clearance: Sleep study: Diet journal: VTE risk score: VTE risk level: Rehab needs at discharge:
== END ==
LOC: BARWHC3 16:28
PROVIDERS: ATTEND Surgery Plastic and Reconstructive Surgery
DX: Z53.9 Procedure and treatment not carried out, unspecified reason (principal)
CPT/HCPCS: 99211

== ENCOUNTER 2023-04-01 08:15 | Day surgery (SDC) | payer MEDICARE ==
--- NOTE | 2023-04-01 07:34 | P.GSHP ---
History of Present Illness H&P Date: 04/01/23 CHIEF COMPLAINT: GERD HISTORY OF PRESENT ILLNESS: The patient is a 57-year-old female who presents reports gastroesophageal reflux disease. Upper endoscopy was offered for further evaluation and management. PAST MEDICAL HISTORY: Please see list. PAST SURGICAL HISTORY: Please see list. MEDICATIONS: Please see list. ALLERGIES: Please see list. SOCIAL HISTORY: No illicit drug use FAMILY HISTORY: No reports of Crohn disease or ulcerative colitis. REVIEW OF ORGAN SYSTEMS: CONSTITUTIONAL: No reports of fevers or chills. GI: Denies any blood in stools or constipation. PHYSICAL EXAM: VITAL SIGNS: Stable GENERAL: Well-developed and pleasant in no acute distress. HEENT: No scleral icterus. Extraocular movements grossly intact. Moist buccal mucosa. NECK: Supple without lymphadenopathy. CHEST: Unlabored respirations. Equal bilateral excursions. CARDIOVASCULAR: Regular rate and rhythm. Distal 2+ pulses. ABDOMEN: Soft, nondistended. MUSCULOSKELETAL: No clubbing, cyanosis, or edema. ASSESSMENT: 1. Gastroesophageal reflux disease PLAN: 1. Recommend proceeding with an upper endoscopy Past Medical History Past Medical History: Atrial Flutter, GERD/Reflux, Hypertension, Osteoarthritis (OA), Seizure Disorder, Thyroid Disorder Additional Past Medical History / Comment(s): past hx. 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 for, hypothroidism, sinus problems, diverticulitis dec 2021 History of Any Multi-Drug Resistant Organisms: None Reported Past Surgical History: Back Surgery, Breast Surgery, Cholecystectomy, Heart Catheterization, Hysterectomy, Orthopedic Surgery, Tonsillectomy Additional Past Surgical History / Comment(s): laminectomy 1991; heart cath , ovarian cysts removed, right breast abscess 2020 Past Anesthesia/Blood Transfusion Reactions: Postoperative Nausea & Vomiting (PONV) Additional Past Anesthesia/Blood Transfusion Reaction / Comment(s): one time episode of slow to wake up years ago Smoking Status: Former smoker Medications and Allergies Home Medications Medication Instructions Recorded Confirmed Type DULoxetine HCL [Cymbalta] 60 mg PO DAILY 06/08/20 03/28/23 History Levothyroxine Sodium [Synthroid] 112 mcg PO DAILY 06/08/20 03/28/23 History lisinopriL [Zestril] 10 mg PO DAILY 03/28/23 03/28/23 History Allergies Allergy/AdvReac Type Severity Reaction Status Date / Time Penicillins Allergy Rash/Hives Verified 03/28/23 10:23 Sulfa (Sulfonamide Allergy Rash/Hives Verified 03/28/23 10:23 Antibiotics) vancomycin AdvReac Itching Verified 03/28/23 10:23 Paper tape AdvReac Rash/Hives Uncoded 03/28/23 10:23
[~2023-04-01 08:15] MED LIST changes: -CLINDAMYCIN 600 MG in DEXTROSE 5% IN WATER 50 ML IVPB PRN; -DEXAMETHASONE SOD PHOSPHATE 4 MG/ML 1 ML VIAL IV PRN; -FAMOTIDINE 20 MG/2 ML VIAL IV PRN; -ONDANSETRON 4 MG/2 ML VIAL IVP PRN
[2023-04-01] MEDS ORDERED: ONDANSETRON 4 MG/2 ML VIAL ONE (09:10)
[2023-04-01] MEDS ORDERED: ONDANSETRON 4 MG/2 ML VIAL IVP ONE (09:11)
[2023-04-01 09:18] VITALS: RESP 16; TEMP 97.8
[2023-04-01] MEDS ORDERED: PROPOFOL 10 MG/ML 20 ML VIAL IV ONE (09:23)
[2023-04-01] MEDS ORDERED: LIDOCAINE 1% INJ 10MG/ML (20 ML MDV) ONE (09:23)
--- NOTE | 2023-04-01 10:11 | P.PCN ---
Date of Procedure: 04/01/23 Description of Procedure: PREOPERATIVE DIAGNOSIS: Gastroesophageal reflux disease. Morbid obesity. POSTOPERATIVE DIAGNOSIS: Gastroesophageal reflux disease. Morbid obesity. Gastritis. Diaphragmatic hiatal hernia OPERATION: Esophagogastroduodenoscopy with biopsies along esophagus, antrum and duodenum SURGEON: Rachel Diaz MD ANESTHESIA: MAC. INDICATIONS: The patient is a 57-year-old female who presents with reflux disease. Benefits and risks of the procedure were described. Informed consent was obtained. DESCRIPTION: The patient was brought into the endoscopy suite and laid in the left lateral decubitus position. An Olympus gastroscope was passed along the posterior oropharynx down to the distal esophagus where the squamocolumnar junction was encountered at 33 cm from the incisors. The stomach was entered and no bile reflux was found. Additional findings are listed below. Biopsies with cold forceps were obtained of the antrum. The first through third portion of the duodenum was examined. Retroflexion of the scope confirmed Hill grade 4 lower esophageal valve. The squamocolumnar junction demonstrated LA grade B erosive esophagitis. The stomach was desufflated. The patient tolerated the procedure well. FINDINGS: Squamocolumnar junction 32 cm from the incisors. Diaphragmatic hiatus at 36 cm. Hiatal hernia, 4 cm Hill grade 4 lower esophageal valve. LA grade B erosive esophagitis. Biopsies obtained Biopsies obtained of the duodenum. Chronic gastritis with biopsies obtained. RECOMMENDATIONS: Upper endoscopy as needed. Plan - Discharge Summary Discharge Rx Participant: No New Discharge Prescriptions: Continue DULoxetine HCL [Cymbalta] 60 mg PO DAILY Levothyroxine Sodium [Synthroid] 112 mcg PO DAILY lisinopriL [Zestril] 10 mg PO DAILY Discharge Medication List DULoxetine HCL [Cymbalta] 60 mg PO DAILY 06/08/20 [History] Levothyroxine Sodium [Synthroid] 112 mcg PO DAILY 06/08/20 [History] lisinopriL [Zestril] 10 mg PO DAILY 03/28/23 [History] Follow up [facility]ment(s[facility] [place] [place] [facility] - [place]/[facility]23 Patient Instructions/Handouts: Hiatal Hernia (DC) Discharge Disposition: HOME SELF-CARE
[2023-04-01 10:14] VITALS: BP 112/76; PULSE 75
== END 2023-04-01 10:31 | disposition home or self-care (01) ==
LOC: ORWHC2ENDO 08:15
PROVIDERS: ATTEND Surgery Plastic and Reconstructive Surgery
DX: K29.50 Unspecified chronic gastritis without bleeding (principal); K21.00 Gastro-esophageal reflux disease with esophagitis, without bleeding; K31.89 Other diseases of stomach and duodenum; I48.92 Unspecified atrial flutter; E66.01 Morbid (severe) obesity due to excess calories; G40.909 Epilepsy, unspecified, not intractable, without status epilepticus; I10 Essential (primary) hypertension; K44.9 Diaphragmatic hernia without obstruction or gangrene; M19.90 Unspecified osteoarthritis, unspecified site; Z79.890 Hormone replacement therapy; Z87.891 Personal history of nicotine dependence; Z88.0 Allergy status to penicillin; Z88.1 Allergy status to other antibiotic agents; Z88.2 Allergy status to sulfonamides; Z88.8 Allergy status to other drugs, medicaments and biological substances; Z90.49 Acquired absence of other specified parts of digestive tract; Z79.899 Other long term (current) drug therapy; Z68.41 Body mass index [BMI] 40.0-44.9, adult
CPT/HCPCS: 88305; 43239; J2405; J2001; J2704

== ENCOUNTER → 2023-04-17 | Outpatient (CLI) | payer MEDICARE ==
[2023-04-17 16:06] VITALS: BP 144/80; PULSE 82; TEMP 98; BMI 44.2
--- NOTE | 2023-04-17 16:18 | P.BASOAP ---
Subjective Progress Note Date: 04/17/23 DATE OF SERVICE: 04/17/23 CHIEF COMPLAINT: Morbid obesity HISTORY OF PRESENT ILLNESS: Carolyn Farrell is a 57-year-old female who comes with morbid obesity. As a result of her morbid obesity she has developed osteoarthritis, hypertensive heart disease. She has severe gastroesophageal reflux disease including hiatal hernia with aspiration pneumonia. She is looking into bariatric surgery to manage her morbid obesity. She has severe chronic aspiration, coughing, and reflux. She has chronic cough for over 6 months. She presents in follow-up due to the severity of her reflux disease. At height of 5 feet 4 inches, her ideal body weight is 144 pounds. Highest weight 250 pounds, body mass index 44.8. She comes in 258 pounds, BMI 44.3. She is 114 pounds overweight. PAST MEDICAL HISTORY: 1. Morbid obesity due to excess calories 2. Body mass index of 44.3 3. Hypothyroidism 4. Depressive disorder 5. Osteoarthritis of the lower back 6. Osteoarthritis bilateral hips 7. Osteoarthritis bilateral knees 9. Hypertensive heart disease PAST SURGICAL HISTORY: 1. Cholecystectomy 2. Heart catheterization 3. Hysterectomy 4. Tonsillectomy 5. Laminectomy HOME MEDICATIONS: Home Medications Medication Instructions Recorded Confirmed DULoxetine HCL [Cymbalta] 60 mg PO DAILY 06/08/20 04/17/23 Levothyroxine Sodium [Synthroid] 112 mcg PO DAILY 06/08/20 04/17/23 lisinopriL [Zestril] 10 mg PO DAILY 03/28/23 04/17/23 Previous Rx's Medication Instructions Recorded Pantoprazole [Protonix] 40 mg PO DAILY #14 tab 04/17/23 ALLERGIES: Allergies Allergy/AdvReac Type Severity Reaction Status Date / Time Penicillins Allergy Rash/Hives Verified 06/08/20 15:27 SOCIAL HISTORY: Past tobacco use. FAMILY HISTORY: No family history of ulcerative colitis disease or Crohn's disease. Family history of morbid obesity. No lupus in the family. No reports of stomach or esophageal cancer. REVIEW OF ORGAN SYSTEMS: CONSTITUTIONAL: At height of 5 feet 4 inches, her ideal body weight is 144 pounds. Highest weight 250 pounds, body mass index 44.8. She comes in 258 pounds, BMI 44.3. She is 114 pounds overweight. HEENT: Denies any active troubles with vision or hearing. ENDOCRINE: Denies diabetes. Has hypothyroidism. CARDIOVASCULAR: Past reports of palpitations or heart attacks or chest pain. Has hypertensive heart disease. RESPIRATORY: Has daytime somnolence. Has asthma. Has chronic obstructive pulmonary disease. GASTROINTESTINAL: Denies any bright red blood per rectum. No diarrhea. No constipation. GENITOURINARY: Denies bladder urgency. No recent blood in urine MUSCULOSKELETAL: Has lower back pain and joint pain. Has osteoarthritis of the knees. NEURO: No headaches. No seizure disorders. Has neuropathy. PSYCH: Has depression. No suicidal ideation. RHEUMATOLOGIC: No lupus. No rheumatoid arthritis. HEMATOLOGIC: Denies any abnormal bleeding or bruising. SKIN: No rash. No skin cancer. PHYSICAL EXAM: VITAL SIGNS: Height 5 foot 4 inches, weight 258 pounds. BMI 44.3 Vital Signs Temp 98 F 04/17/23 15:51 Pulse 82 04/17/23 15:51 Resp BP 144/80 04/17/23 15:51 Pulse Ox FiO2 GENERAL: Well-developed in no acute distress. HEENT: No scleral icterus. Extraocular movements grossly intact. Hears conversational speech. No nasal drainage. NECK: Supple without lymphadenopathy. CHEST: Nonlabored respirations with equal bilateral excursions. CARDIOVASCULAR: Distal 2+ pulses. ABDOMEN: Obese, soft, nontender, nondistended. MUSCULOSKELETAL: No clubbing, cyanosis. NEURO: No focal or lateralizing signs. Cranial nerves 2 through 12 grossly within normal limits. PSYCH: Appropriate affect. Alert and oriented to person, place and time. SKIN: Good skin turgor. Well perfused. EGD FINDINGS: Squamocolumnar junction 32 cm from the incisors. Diaphragmatic hiatus at 36 cm. Hiatal hernia, 4 cm Hill grade 4 lower esophageal valve. LA grade B erosive esophagitis. Biopsies obtained Biopsies obtained of the duodenum. Chronic gastritis with biopsies obtained. Final Pathologic Diagnosis A. DUODENUM, BIOPSY: Benign small bowel mucosa with Brunners gland hyperplasia and lymphoid aggregate. Negative for histologic features of celiac disease. B. STOMACH, ANTRUM, BIOPSY: Mild chronic gastritis. Helicobacter pylori organisms are not identified on routine H+E sections. C. ESOPHAGUS, BIOPSY: Mild reflux esophagitis. Negative for Barretts esophagus. ASSESSMENT: 1. Morbid obesity due to excess calories 2. Body mass index of 44.3 3. Hypothyroidism 4. Depressive disorder 5. Osteoarthritis of the lower back 6. Osteoarthritis bilateral hips 7. Osteoarthritis bilateral knees 8. Diaphragmatic hiatal hernia 9. Gastroesophageal reflux disease 10. Chronic gastritis PLAN: 1. Due to her severe gastroesophageal reflux disease and aspiration pneumonia, bariatric procedures on hold. 2. Recommend a cardiac risk assessment including an EKG 3. Recommend assessment for obstructive sleep apnea 4. Recommend bariatric labs and correction of the nutritional deficiencies 5. Prescription for omeprazole advised. 6. She is elevated risk for complications due to morbid obesity including hypertensive heart disease. Objective - Vital Signs Vital signs: Vital Signs Temp 98 F 04/17/23 15:51 Pulse 82 04/17/23 15:51 Resp BP 144/80 04/17/23 15:51 Pulse Ox FiO2 Intake & Output 04/16/23 04/17/23 04/17/23 18:59 06:59 18:59 Weight 117.027 kg Assessment/Plan Plan: Date: 04/17/23 Initial Weight: 116.573 kg Initial BMI: 44.1 Current Weight: 117.027 kg Current BMI: 44.2 Type of Surgery: Total Volume in Band: Previous Volume: Volume Removed: Volume Added: Band Size:
== END ==
LOC: BARWHC3 15:21
PROVIDERS: ATTEND Surgery Plastic and Reconstructive Surgery
DX: K21.9 Gastro-esophageal reflux disease without esophagitis (principal); E66.01 Morbid (severe) obesity due to excess calories; E03.9 Hypothyroidism, unspecified; F32.A Depression, unspecified; M47.816 Spondylosis without myelopathy or radiculopathy, lumbar region; M16.0 Bilateral primary osteoarthritis of hip; M17.0 Bilateral primary osteoarthritis of knee; K44.0 Diaphragmatic hernia with obstruction, without gangrene; K29.50 Unspecified chronic gastritis without bleeding; Z68.41 Body mass index [BMI] 40.0-44.9, adult; Z72.0 Tobacco use; Z88.0 Allergy status to penicillin; Z79.899 Other long term (current) drug therapy; Z79.890 Hormone replacement therapy; Z88.2 Allergy status to sulfonamides; Z88.1 Allergy status to other antibiotic agents; Z91.048 Other nonmedicinal substance allergy status
CPT/HCPCS: 99211

== ENCOUNTER → 2023-05-22 | Outpatient (CLI) | payer MEDICARE ==
[2023-05-22 12:37] LABS: INR 0.9 (<1.2); Partial Thromboplastin Time 24.8 sec (22.0-30.0); Prothrombin Time 9.8 sec (10.0-12.5)
[2023-05-22 15:51] LABS: HCT 40.9 % (37.2-46.3); MCH 28.1 pg (27.0-32.0); MCHC 31.8 g/dL (32.0-37.0); MCV 88.5 FL (80.0-97.0); Mean Platelet Volume 10.8 FL (9.5-12.2); NRBC Per 100 WBC 0 X 10*3/uL (0.00-0.01); Platelet Count 298 X 10*3/uL (140-440); RBC 4.62 X 10*6/uL (4.10-5.20); RDW 13.7 % (11.5-14.5)
[2023-05-22 16:15] LABS: Prealbumin 20.9 mg/dL (18.0-42.0)
[2023-05-22 16:41] LABS: % Iron Saturation 22.31 (12.00-45.00); ALT 16 U/L (8-44); AST 16 U/L (13-35); Albumin 4.2 g/dL (3.8-4.9); Albumin/Globulin Ratio 1.75 Ratio (1.60-3.17); Alkaline Phosphatase 78 U/L (41-126); BUN/Creat Ratio 17.67 Ratio (12.00-20.00); Blood Urea Nitrogen 10.6 mg/dL (9.0-27.0); Calcium 10.3 mg/dL (8.7-10.3); Carbon Dioxide 27.5 mmol/L (21.6-31.8); Chloride 103 mmol/L (96-109); Ferritin 19.7 ng/mL (10.0-291.0); Globulin 2.4 g/dL (1.6-3.3); Glucose 96 mg/dL (70-110); Iron 81 UG/DL (50-170); LDL Cholesterol,Calculated 89.6 mg/dL (0.0-131.0); Phosphorus 3.5 mg/dL (2.4-5.1); Potassium 4.3 mmol/L (3.5-5.5); Sodium 142 mmol/L (135-145); Total Bilirubin 0.4 mg/dL (0.3-1.2); Total Iron Binding Capacity 363 UG/DL (228-460); Total Protein 6.6 g/dL (6.2-8.2)
[2023-05-23 13:06] LABS: Zinc, Serum 62 ug/dL (60-130)
[2023-05-24 06:45] LABS: Vitamin A 40 ug/dL (38-106)
[2023-05-24 11:03] LABS: Vit B1(Thiamine) 55 ug/L (38-122)
== END | disposition home or self-care (01) ==
LOC: LABWHC1 11:26
PROVIDERS: ATTEND Surgery Plastic and Reconstructive Surgery
DX: D50.8 Other iron deficiency anemias (principal); K91.2 Postsurgical malabsorption, not elsewhere classified; E44.0 Moderate protein-calorie malnutrition; E44.1 Mild protein-calorie malnutrition; E45 Retarded development following protein-calorie malnutrition; E55.9 Vitamin D deficiency, unspecified; K74.1 Hepatic sclerosis; N19 Unspecified kidney failure; T56.894A Toxic effect of other metals, undetermined, initial encounter; K50.90 Crohn's disease, unspecified, without complications; E89.1 Postprocedural hypoinsulinemia; E66.01 Morbid (severe) obesity due to excess calories
CPT/HCPCS: 36415; 80053; 80061; 82306; 82525; 82607; 82728; 82746; 83036; 83540; 83550; 83735; 83970; 84100; 84134; 84255; 84425; 84443; 84590; 84630; 85027; 85610; 85730; 93005

== ENCOUNTER → 2023-06-03 | Outpatient (CLI) | payer MEDICARE ==
[2023-06-03 15:16] VITALS: BMI 43.9
== END ==
LOC: BARWHC3 13:16
PROVIDERS: ATTEND Surgery Plastic and Reconstructive Surgery
DX: E66.01 Morbid (severe) obesity due to excess calories (principal); Z71.3 Dietary counseling and surveillance; Z68.41 Body mass index [BMI] 40.0-44.9, adult; Z88.0 Allergy status to penicillin; Z88.2 Allergy status to sulfonamides; Z88.1 Allergy status to other antibiotic agents; Z91.048 Other nonmedicinal substance allergy status
CPT/HCPCS: 97804; G0463; 99211

== ENCOUNTER 2023-06-07 10:11 | Inpatient (IN) | payer MEDICARE ==
--- NOTE | 2023-06-07 06:26 | P.GSHP ---
History of Present Illness H&P Date: 06/07/23 CHIEF COMPLAINT: Paraesophageal hiatal hernia with gastroesophageal reflux disease. HISTORY OF PRESENT ILLNESS: The patient is a 57-year-old female who presents with symptomatic paraesophageal hiatal hernia over one year with gastroesophageal reflux disease. She reports aspiration when she night of acidic content into her lungs. She is undergoing options for weight loss surgery as well. She has completed upper endoscopy workup. Now she presents for surgical intervention. PAST MEDICAL HISTORY: Please see list. PAST SURGICAL HISTORY: Please see list. MEDICATIONS: Please see list. ALLERGIES: Please see list. SOCIAL HISTORY: No illicit drug use FAMILY HISTORY: No reports of Crohn disease or ulcerative colitis. REVIEW OF ORGAN SYSTEMS: CONSTITUTIONAL: No fever or chills. HEENT: No trouble with vision, hearing or nosebleeds. No difficulty swallowing. LYMPHATIC: No lumps and bumps around the neck. ENDOCRINE: No thyroid disorders. No blood sugar glucose intolerance. RESPIRATORY: No pneumonia. No troubles with breathing or dyspnea on exertion. CARDIOVASCULAR: No chest pain, palpitations. GASTROINTESTINAL: No bright red blood per rectum. Severe gastroesophageal reflux disease. GENITOURINARY: No blood in urine or increased urinary frequency. MUSCULOSKELETAL: No rheumatoid arthritis. NEUROLOGIC: No numbness or tingling along the distal extremities. No seizure disorders or headaches. PSYCHIATRIC: No ADHD or ADD. HEMATOLOGIC: No abnormal bleeding or bruising. PHYSICAL EXAM: VITAL SIGNS: Stable GENERAL: Well-developed pleasant and in no acute distress. HEENT: No scleral icterus. Extraocular movements grossly intact. Moist buccal mucosa. NECK: Supple without lymphadenopathy. CHEST: Unlabored respirations. Equal bilateral excursions. CARDIOVASCULAR: Regular rate and rhythm. Distal 2+ pulses. ABDOMEN: Soft, nondistended. No peritoneal signs. MUSCULOSKELETAL: No clubbing, cyanosis, or edema. SKIN: Well-perfused. Good skin turgor. REPORTS: Upper endoscopy demonstrates paraesophageal hiatal hernia REPORTS: Cardiology risk assessment obtained. Please see chart. ASSESSMENT: 1. Diaphragmatic paraesophageal hiatal hernia with severe gastroesophageal reflux disease. PLAN: 1. Recommend proceeding with a robotic paraesophageal hiatal hernia with possible mesh. 2. Benefits and risks of surgical intervention was discussed including possibility of open technique. 3. Inpatient hospitalization recommended of 2 nights 4. DVT prophylaxis. 5. Antibiotic prophylaxis. 6. She has also completed a very low caloric high-protein diet to address underlying hepatomegaly. 7. Non narcotic pain management including abdominal wall block described 8. Blood sugar glucose described. 9. Weight loss management described. 10. She is elevated risk due to her comorbid conditions. Past Medical History Past Medical History: Atrial Flutter, GERD/Reflux, Hypertension, Osteoarthritis (OA), Seizure Disorder, Thyroid Disorder Additional Past Medical History / Comment(s): past hx. 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 for, hypothroidism, sinus problems, diverticulitis dec 2021 History of Any Multi-Drug Resistant Organisms: None Reported Past Surgical History: Back Surgery, Breast Surgery, Cholecystectomy, Heart Catheterization, Hysterectomy, Tonsillectomy Additional Past Surgical History / Comment(s): laminectomy 1991; heart cath , ovarian cysts removed, right breast abscess 2020 Past Anesthesia/Blood Transfusion Reactions: Motion Sickness, Postoperative Nausea & Vomiting (PONV) Additional Past Anesthesia/Blood Transfusion Reaction / Comment(s): one time episode of slow to wake up years ago Smoking Status: Former smoker - Past Family History Mother Family Medical History: No Reported History Medications and Allergies Home Medications Medication Instructions Recorded Confirmed Type DULoxetine HCL [Cymbalta] 60 mg PO DAILY 06/08/20 06/05/23 History Levothyroxine Sodium [Synthroid] 112 mcg PO DAILY 06/08/20 06/05/23 History lisinopriL [Zestril] 10 mg PO DAILY 03/28/23 06/05/23 History Pantoprazole [Protonix] 40 mg PO DAILY #14 tab 04/17/23 06/05/23 Rx Allergies Allergy/AdvReac Type Severity Reaction Status Date / Time Penicillins Allergy Rash/Hives Verified 06/05/23 11:05 Sulfa (Sulfonamide Allergy Rash/Hives Verified 06/05/23 11:05 Antibiotics) vancomycin AdvReac Itching Verified 06/05/23 11:05 Paper tape AdvReac Rash/Hives Uncoded 06/05/23 11:05
[~2023-06-07 10:11] MED LIST changes: -LACTATED RINGERS 1,000 ML IV SCH; -LIDOCAINE 1% (10MG/ML) FOR IV START INTRADERMA PRN; +MIDAZOLAM 2 MG/2 ML VIAL IV PRN
[2023-06-07] MEDS: LACTATED RINGERS 1,000 ML IV SCH (10:49)
[2023-06-07] MEDS: ONDANSETRON 4 MG/2 ML VIAL IVP PRN (11:01)
[2023-06-07] MEDS: CHLORHEXIDINE GLUCONATE 15 ML CUP MUCOUS MEM STA (11:01)
[2023-06-07] MEDS: ACETAMINOPHEN TAB 500 MG TAB PO PRN (11:01)
[2023-06-07] MEDS: HEPARIN SODIUM,PORCINE 5,000 UNIT/ML 1 ML VIAL SQ PRN (11:01)
[2023-06-07] MEDS: fentaNYL (PF) 50 MCG/ML 2 ML AMP IVP ONE (11:02)
[2023-06-07] MEDS: PANTOPRAZOLE 40 MG/10 ML VIAL IVP STA (11:02)
[2023-06-07] MEDS: SCOPOLAMINE 1 MG/72 HR PATCH TRANSDERM STA (11:02)
[2023-06-07] MEDS ORDERED: GLYCOPYRROLATE 0.2 MG/ML 2 ML VIAL ONE (11:35)
[2023-06-07] MEDS ORDERED: PROPOFOL 10 MG/ML 20 ML VIAL IV ONE (11:35)
[2023-06-07] MEDS ORDERED: HYDROmorphone (PF) 1 MG/ML ONE (11:35)
[2023-06-07] MEDS ORDERED: PHENYLEPHRINE 10 MG/ML VIAL ONE (11:35)
[2023-06-07] MEDS ORDERED: LIDOCAINE 1% INJ 10MG/ML (20 ML MDV) ONE (11:35)
[2023-06-07] MEDS ORDERED: DEXAMETHASONE SOD PHOSPHATE 10 MG/ML 1 ML VIAL ONE (11:35)
[2023-06-07] MEDS ORDERED: MIDAZOLAM 2 MG/2 ML VIAL ONE (11:35)
[2023-06-07] MEDS ORDERED: NEOSTIGMINE 1 MG/ML 10 ML VIAL ONE (11:35)
[2023-06-07] MEDS ORDERED: SUCCINYLCHOLINE CHLORIDE 200 MG/10 ML VIAL IV ONE (11:35)
[2023-06-07] MEDS ORDERED: fentaNYL (PF) 50 MCG/ML 2 ML AMP ONE (11:35)
[2023-06-07] MEDS ORDERED: ROCURONIUM 10 MG/ML (5 ML VIAL) IV ONE (11:35)
[2023-06-07] MEDS: metroNIDAZOLE-NS PMX 500 MG in SALINE 1 100ML.BAG IVPB PRN (11:40)
[2023-06-07] MEDS: LIDOCAINE 1%-EPI 1:100,000 50 ML VIAL SQ ONE ×2 (12:07→12:15)
[2023-06-07] MEDS: LACTATED RINGERS 1,000 ML IV ONE (12:46)
[2023-06-07] MEDS: HYDROmorphone 0.5 MG/0.5 ML SYRINGE IVP PRN (14:35)
--- NOTE | 2023-06-07 14:40 | P.OP ---
Date of Procedure: 06/07/23 Description of Procedure: SURGEON: SATINDER ALDRICH MD PREOPERATIVE DIAGNOSES: 1. Gastroesophageal reflux disease with aspiration 2. Paraesophageal hiatal hernia, midline. 3. Hypertensive heart disease 4. Depressive disorder 5. Morbid obesity due to excess calories, BMI 42.9 6. Hypothyroidism 7. Postop nausea vomiting 8. Motion sickness 9. History of atrial flutter POSTOPERATIVE DIAGNOSES: 1. Gastroesophageal reflux disease with aspiration 2. Paraesophageal hiatal hernia, midline, 4 x 4 cm 3. Hypertensive heart disease 4. Depressive disorder 5. Morbid obesity due to excess calories, BMI 42.9 6. Hypothyroidism 7. Postop nausea vomiting 8. Motion sickness 9. History of atrial flutter OPERATION: 1. Robotic-assisted da Alyssa Xi laparoscopic reduction and repair of incarcerated paraesophageal hiatal hernia, 4 x 4 cm, with [place] Biopatch A 7 x 10 cm. 2. Intraoperative esophagogastroduodenoscopy 3. Esophageal dilation 56-Indonesian bougie ANESTHESIA: General with local anesthetic. ESTIMATED BLOOD LOSS: 5 mL SPECIMENS REMOVED: None. COMPLICATIONS: None. FINDINGS: 1. Diaphragmatic hiatal hernia with length 4 cm, width 4 cm 2. Bougie 56-Indonesian placed 3. 4 x 4 cm paraesophageal incarcerated diaphragmatic hiatal hernia with moderate dissection into the mediastinum. 4. Intra-abdominal esophageal length over 2 cm obtained 5. [place] Biopatch A onlay mesh placed. INDICATIONS: The patient is a 57-year-old female who presents with regurgitation, aspiration, gastroesophageal reflux disease and a symptomatic diaphragmatic hiatal hernia. Preoperative workup including upper endoscopy demonstrated a Hill grade 4 lower esophageal valve. Given the severity of her symptoms, particularly of her symptomatic diaphragmatic hiatal hernia, she had elected for surgical intervention. Benefits and risks including bleeding, infection, recurrence, dysphagia, injury to the lung, need for further surgery was described at length. Informed consent was obtained. DESCRIPTION: The patient was brought into the operating room and placed in supine position. Preoperatively she had received Heparin subcutaneously for DVT prophylaxis. After general induction, the abdomen was prepped and draped in standard sterile fashion. The patient had previously voided prior to coming to the operating room. [place]oban draping was placed along the abdomen. A timeout protocol was confirmed with the surgical team, for which the patient's name, procedure to be performed including DVT prophylaxis with bilateral SCDs, and preoperative antibiotics were also confirmed. A robotic da Alyssa Xi system was prepped and primed. At 10 cm from the xiphoid to just below the umbilicus, proposed port sites were marked with indelible marker along the left axillary line, left mid-clavicular line with each ports were marked 10 cm from each other. A 5 mm 0 degrees laparoscopic trocar entry was performed along the left upper quadrant. The abdomen was insufflated to 15 mmHg pressure she tolerated well. Diagnostic laparoscopy demonstrated no injury to bowel, viscera, or mesentery. The liver surface was unremarkable consistent with 2-week liver diet. No injury had occurred to the small bowel or viscera. Along the hiatus, a defect was found anteriorly. Next, one 8 mm robotic port was placed along the right upper abdomen. An 8-mm port was were placed along the left lateral abdominal wall. The camera 8-mm port was maintained along the epigastrium via the hernia defect. Another 12 mm port was placed along the left upper abdominal wall after exchanging the 5 mm port. Please note that the ports were placed at least 20 cm away from the target anatomy. Care was taken to check that each robotic arm were safely away from collision with the bed or the patient. At the epigastrium, a median sized Domo liver retractor was placed under direct visualization with the [employer] placed over the right shoulder of the patient. The additional third robotic arm was placed along the left aspect of the patient. The patient was repositioned in reverse Trendelenburg position at 22-degrees after lowering the bed. The robot was docked above the left side of the patient. Using a grasper for arm 3, a grasper for arm 1, including vessel sealer for arm 2, the robotic system was docked and primed as described. Instruments were interchanged by the bilingual office assistant. I had sat at the console. The gastrohepatic ligament was cleaved using a vessel sealer. Next, the phrenoesophageal ligament was mobilized and the distal esophagus was mobilized circumferentially with care of to the bilateral vagi nerves. The left and right crura was identified. A midline large hiatal hernia and sac was found. Circumferentially, the hernia sac was excised and brought into the peritoneal cavity. Care was taken to avoid any gastrotomy to the upper pole of the stomach. The measured defect was consistent with 4 cm axial length and 4 cm in width. The distal esophagus at least 2 cm was brought into the abdominal cavity. Once the hiatus and crura was dissected, 2-0 VLOC suture was placed initially with a [id number] suture to reapproximate the diaphragmatic hiatus posteriorly. To buttress the repair, a [place] Biopatch A was prepared along the back table as to reinforce the repair as an underlay. The mesh was placed along the crural repair and tagged using horizontal mattress sutures using 2-0 VLOC. I went to the head of the bed to perform intraoperative esophagogastroduodenos copy. A 56-Indonesian bougie was carefully placed along the posterior oropharynx through the hiatus and then removed. An Olympus gastroscope was passed through posterior oropharynx, where the GE junction was found distal to the diaphragmatic hiatus. The intra-abdominal esophageal length obtained during the case was over 2 cm. The stomach was entered. Retroflexion of the scope confirmed a Hill grade 1 lower esophageal valve. Duodenal ulcers along the first portion of duodenum was confirmed without bleeding. The stomach had been desufflated. No evidence of leaks were found either of the mucosal defects of the esophagus or stomach. The hiatal closure was consistent with a 56 Indonesian bougie as a bougie was passed. This concluded the endoscopic portion of the case. The robot was undocked from the patient. I re-scrubbed into the case. All instruments and pneumoperitoneum were evacuated from the abdominal cavity. Incisions were reapproximated using 4-0 Monocryl in an interrupted subcuticular fashion. Liquid glue was applied to the skin. Local anesthetic was infiltrated in all wounds for postop analgesia. Multiple intra-abdominal films were obtained. At the end of the procedure, needle, sponge, and instrument count was verified correct by the pharmacy technician instructor. The patient had tolerated the procedure well and was taken to the postanesthesia unit in stable condition. Intraoperative films were reviewed with the patient's family who was pleased with the level of care.
[2023-06-07] MEDS: DEXAMETHASONE SOD PHOSPHATE 4 MG/ML 1 ML VIAL IVP SCH (16:23)
[2023-06-07] MEDS: D5-0.45% NACL WITH KCL 20MEQ/L 1,000 ML IV SCH (16:23)
[2023-06-07] MEDS: METOCLOPRAMIDE 5 MG/ML 2 ML VIAL IVP SCH (17:23)
[2023-06-07] MEDS: ONDANSETRON 4 MG/2 ML VIAL IVP SCH (17:23)
[2023-06-07] MEDS: HYDROmorphone 1 MG/ML 1 ML SYRINGE IVP PRN (17:23)
[2023-06-07] MEDS: HEPARIN SODIUM,PORCINE 5,000 UNIT/ML 1 ML VIAL SQ SCH (21:17)
[2023-06-07] MEDS: FAMOTIDINE 20 MG/2 ML VIAL IV SCH (21:17)
[2023-06-08] MEDS: lisinopriL 10 MG TAB PO SCH (08:39)
[2023-06-08 13:01] VITALS: BMI 42.8
--- NOTE | 2023-06-08 15:51 | P.PN ---
Subjective Progress Note Date: 06/08/23 POD #1 HHR with mesh -UGI not performed yet -Tolerating diet -Pain Control Patient is resting in bed. She is having some normal postop pain. She is requesting to spend another day in the hospital General-NAD Abdomen-soft, ND, incisional TTP Objective - Vital Signs Vital signs: Vital Signs Temp 98.1 F 06/08/23 14:00 Pulse 71 06/08/23 14:00 Resp 17 06/08/23 14:00 BP 97/59 06/08/23 14:00 Pulse Ox 95 06/08/23 14:00 FiO2 Intake & Output 06/07/23 06/08/23 06/08/23 18:59 06:59 18:59 Intake Total 1850 Output Total 20 Balance 1830 Weight 113.3 kg 113.3 kg Intake: IV 1850 Output: Estimated Blood Loss 20 Other: Voiding Method Toilet # Voids 4 3
--- NOTE | 2023-06-09 11:47 | P.PN ---
Subjective Progress Note Date: 06/09/23 She reports dysphagia postoperatively however no further reflux disease. She was able to sleep well without aspiration. Esophagram not available due to radiologist not available. Due to dysphagia and symptoms, recommend continued inpatient hospitalization with esophagram. Continue Isak diet. Objective - Vital Signs Vital signs: Vital Signs Temp 98.2 F 06/09/23 08:00 Pulse 71 06/09/23 08:00 Resp 15 06/09/23 08:00 BP 99/64 06/09/23 08:00 Pulse Ox 94 L 06/09/23 08:00 FiO2 Intake & Output 06/08/23 06/09/23 06/09/23 18:59 06:59 18:59 Intake Total 1999 Balance 1999 Weight 113.3 kg Intake: Intake, IV Titration 1500 Amount D5-0.45% NaCl with KCl 1500 20Meq/l 1,000 ml @ 125 mls/hr IV .Q8H ANNI Rx#: [id number] Oral 500 Other: # Voids 2 3
[2023-06-09] MEDS: SIMETHICONE 40 MG/0.6 ML DROPS 2,000 MG/30 ML BOTTLE PO SCH (18:25)
[2023-06-10 08:26] VITALS: BP 127/81; PULSE 64; RESP 17; TEMP 98.1
--- NOTE | 2023-06-10 10:37 | FL ---
EXAMINATION TYPE: FL esophagus cervic/pharynx DATE OF EXAM: 06/10/2023 COMPARISON: None HISTORY: Hiatal hernia repair TECHNIQUE: Double air contrast technique is utilized to evaluate the esophagus. 82 images were obtain ed. Fluoroscopy time: 27 seconds. DAP: 3555.73 Contrast 60 mL 370 FINDINGS: No extravasation of contrast is evident. No free air on fluoroscopy is evident. Contrast pa sses through the gastroesophageal junction without hesitancy. Fundus body and antrum of the stomach a s visualized on overhead radiograph is unremarkable. Hiatal hernia is not identified at this time. Note is made of presbyesophagus within the distal esophagus within the [id number] IMPRESSION: 1. No extravasation of contrast. No free air is evident. 2. Presbyesophagus. 3. No hiatal hernia identified at this time.
--- NOTE | 2023-06-10 13:07 | P.DS ---
Providers Date of admission: 06/07/23 10:11 Expected date of discharge: 06/10/23 Attending physician: Rachel Diaz Primary care physician: Missy Mccullough MD Hospital Course: Discharge diagnosis 1. Gastroesophageal reflux disease with aspiration 2. Paraesophageal hiatal hernia, midline, 4 x 4 cm 3. Hypertensive heart disease 4. Depressive disorder 5. Morbid obesity due to excess calories, BMI 42.9 6. Hypothyroidism 7. Postop nausea vomiting 8. Motion sickness 9. History of atrial flutter Hospital course This is a 57-year-old femalewho presented with regurgitation, aspiration, gastroesophageal reflux disease and a symptomatic diaphragmatic hiatal hernia. She is status post Robotic-assisted da Alyssa Xi laparoscopic reduction and repair of incarcerated paraesophageal hiatal hernia with [place] [employer]. Her pain is controlled. Her upper GI shows no evidence of leak or obstruction. She is tolerating diet. She is afebrile. She has been up and ambulating. She did have a small amount of flatus. She is stable for discharge. Physician Load Tester note has been reviewed by physician. Signing provider agrees with the documented findings, assessment, and plan of care. Patient Condition at Discharge: Stable Plan - Discharge Summary Discharge Rx Participant: Yes New Discharge Prescriptions: New Simethicone 40 mg/0.6 ml Drops [Mylicon Drops] 40 mg PO PCHS PRN #30 ml PRN Reason: Gas Ondansetron Odt [Zofran Odt] 4 mg PO Q8HR PRN #9 tab PRN Reason: Nausea Acetaminophen Tab [Tylenol] 1,000 mg PO Q6HR PRN #30 tablet PRN Reason: Pain bisacodyL [Dulcolax] 5 mg PO DAILY PRN #10 tab PRN Reason: Constipation Continue DULoxetine HCL [Cymbalta] 60 mg PO DAILY Levothyroxine Sodium [Synthroid] 112 mcg PO DAILY lisinopriL [Zestril] 10 mg PO DAILY Discontinued Pantoprazole [Protonix] 40 mg PO DAILY #14 tab Discharge Medication List DULoxetine HCL [Cymbalta] 60 mg PO DAILY 06/08/20 [History] Levothyroxine Sodium [Synthroid] 112 mcg PO DAILY 06/08/20 [History] lisinopriL [Zestril] 10 mg PO DAILY 12/14/23 [History] Ondansetron Odt [Zofran Odt] 4 mg PO Q8HR PRN #9 tab 06/08/23 [Rx] Simethicone 40 mg/0.6 ml Drops [Mylicon Drops] 40 mg PO PCHS PRN #30 ml 06/08/23 [Rx] bisacodyL [Dulcolax] 5 mg PO DAILY PRN #10 tab 06/08/23 [Rx] Acetaminophen Tab [Tylenol] 1,000 mg PO Q6HR PRN #30 tablet 06/10/23 [Rx] Follow up Appointment(s)/[facility] [place] [facility] - 06/12/23 2:00 pm Patient Instructions/Handouts: Hiatal Hernia (DC), Laparoscopic Hiatal Hernia Repair (GEN) Activity/Diet/Wound Care/Special Instructions: Liquid diet for 2 weeks until June 20 No lifting over 4 pounds in 4 weeks, July 05August shower No soaking in bath tubs for 2 weeks, June 20 Please notify your surgeon if you develop nausea and vomiting including new onset of abdominal pain. Please ambulate at all times. Use Simethicone, Gas-X, Tylenol and ibuprofen or Aleve scheduled for the next 24-48 hours for best pain relief. Use ice along incisions for the today to prevent swelling. Please open, cut, crush pills larger than the size of a tic tack No carbonated beverages. No straws. Do not remove scopolamine patch for 3 days, if present Avoiding Gas Avoid drinking through a straw. Do not chew gum or tobacco. These actions cause you to swallow air, which produces excess gas in your stomach. Chew with your mouth closed. Avoid any foods that cause stomach gas and distention. These foods include corn, dried beans, peas, lentils, onions, broccoli, cauliflower and any food from the cabbage family. Avoid carbonated drinks, alcohol, citrus and tomato products. Carbonated drinks (sodas) are not allowed for the first six to eight weeks after surgery. After this time you can try them again in small amounts Clear Liquid Diet The first diet after surgery is the clear liquid diet. It includes the following liquids: Apple juice Cranberry juice Grape juice Chicken broth Beef broth Flavored gelatin (Jell-O) Decaf tea and coffee Caffeinated beverages are permitted based on tolerance Popsicles Palauan ice Full Liquid Diet The full liquid diet contains anything on the clear liquid diet, plus: Milk, soy, rice and almond (no chocolate) Cream of wheat, cream of rice, grits Strained creamed soups (no tomato or broccoli) Vanilla and strawberry-flavored ice cream Sherbet Blended, custard styled or whipped yogurt (plain or vanilla only) Vanilla and butterscotch pudding (no chocolate or coconut) Nutritional drinks including Ensure, Boost, Sullivan Instant Breakfast (no chocolate-flavored) Note: Dairy products, such as milk, ice cream and pudding, may cause diarrhea in some people just after surgery. You may need to avoid milk products. If so, substitute them with lactose-free beverages, such as soy, rice, Lactaid or almond milks. Discharge Disposition: HOME SELF-CARE
== END 2023-06-10 11:42 | disposition home or self-care (01) | DRG 327 ==
LOC: 2ORMAIN 10:11 → 4SSUR 14:17
PROVIDERS: ADMIT Surgery Plastic and Reconstructive Surgery; ATTEND Surgery Plastic and Reconstructive Surgery
PROC: 0D748ZZ Dilation of Esophagogastric Junction, Via Natural or Artificial Opening Endoscopic (ICD-10-PCS; principal; 2023-06-07 11:35)
PROC: 8E0W4CZ Robotic Assisted Procedure of Trunk Region, Percutaneous Endoscopic Approach (ICD-10-PCS; principal; 2023-06-07 11:35)
PROC: 0BUT4JZ Supplement Diaphragm with Synthetic Substitute, Percutaneous Endoscopic Approach (ICD-10-PCS; principal; 2023-06-07 11:35)
DX: K44.0 Diaphragmatic hernia with obstruction, without gangrene (principal); I48.92 Unspecified atrial flutter; Z68.41 Body mass index [BMI] 40.0-44.9, adult; K26.9 Duodenal ulcer, unspecified as acute or chronic, without hemorrhage or perforation; E66.01 Morbid (severe) obesity due to excess calories; I11.9 Hypertensive heart disease without heart failure; R16.0 Hepatomegaly, not elsewhere classified; F32.A Depression, unspecified; E03.9 Hypothyroidism, unspecified; K21.9 Gastro-esophageal reflux disease without esophagitis; Z28.310 Unvaccinated for COVID-19; R13.10 Dysphagia, unspecified; M19.90 Unspecified osteoarthritis, unspecified site; M47.9 Spondylosis, unspecified; R11.2 Nausea with vomiting, unspecified; Z79.890 Hormone replacement therapy; Z79.899 Other long term (current) drug therapy; Z87.891 Personal history of nicotine dependence; Z87.898 Personal history of other specified conditions; Z88.0 Allergy status to penicillin; Z88.2 Allergy status to sulfonamides; Z88.1 Allergy status to other antibiotic agents
CPT/HCPCS: 74210; 86850; 86900; 86901

== ENCOUNTER → 2023-06-12 | Outpatient (CLI) | payer MEDICARE ==
--- NOTE | 2023-06-12 16:33 | P.BASOAP ---
Subjective Progress Note Date: 06/12/23 Has no longer GERD. Losing weight. NO i nfection. Continue. Liquid diet advised FU nextweek Assessment/Plan Plan: Date: Initial Weight: 116.573 kg Initial BMI: Current Weight: Current BMI: Type of Surgery: Total Volume in Band: Previous Volume: Volume Removed: Volume Added: Band Size:
[2023-06-12 16:56] VITALS: BP 138/80; PULSE 91; TEMP 97.7; BMI 42.9
== END ==
LOC: BARWHC3 16:27
PROVIDERS: ATTEND Surgery Plastic and Reconstructive Surgery
DX: Z53.9 Procedure and treatment not carried out, unspecified reason (principal)
CPT/HCPCS: 99211

== ENCOUNTER 2023-06-26 13:47 | Emergency (ER) | payer MEDICARE ==
[2023-06-26 14:43] LABS: Basophils % (A) 0 %; Eosinophils # (A) 0.1 k/uL (0-0.7); Eosinophils % (A) 2 %; HCT 40.4 % (34.0-46.0); HGB 13.5 gm/dL (11.4-16.0); Lymphocytes # (A) 2.2 k/uL (1.0-4.8); Lymphocytes % (A) 31 %; MCH 29.2 pg (25.0-35.0); MCHC 33.4 g/dL (31.0-37.0); MCV 87.4 fL (80.0-100.0); Mean Platelet Volume 8.4; Monocytes # (A) 0.5 k/uL (0-1.0); Monocytes % (A) 7 %; Neutrophils % (A) 58 %; Platelet Count 222 k/uL (150-450); RBC 4.63 m/uL (3.80-5.40); RDW 13.7 % (11.5-15.5)
--- NOTE | 2023-06-26 14:54 | ED ---
General Adult HPI - General Chief complaint: Abdominal Pain Stated complaint: abd pain Time Seen by Provider: 06/26/23 14:13 Source: patient, RN notes reviewed Mode of arrival: wheelchair Limitations: no limitations - History of Present Illness Initial comments: 58-year-old female presents to the emergency department for evaluation of lower abdominal pain. She states that this started 4 to 5 days ago. She reports that it started in her left lower abdomen and now is throughout her lower abdomen and into her groin. She states that she feels like she has some swollen lymph nodes in her right-sided groin. She does have a history of diverticulosis and states that initially this felt similar to when she has had diverticulitis in the past. She denies fever. Admits to nausea without vomiting. She reports that she has had a bowel movement today but it was minimal. She had hiatal hernia surgery around [address] Diaz. She states that she was following up with her today and she sent her in for CT scan and further evaluation. - Related Data Home Medications Medication Instructions Recorded Confirmed DULoxetine HCL [Cymbalta] 60 mg PO DAILY 06/08/20 06/26/23 Levothyroxine Sodium [Synthroid] 112 mcg PO DAILY 06/08/20 06/26/23 lisinopriL [Zestril] 10 mg PO DAILY 03/28/23 06/26/23 Tamsulosin HCl [Flomax] 0.4 mg PO DAILY 06/27/23 06/27/23 Previous Rx's Medication Instructions Recorded Ondansetron Odt [Zofran Odt] 4 mg PO Q8HR PRN #9 tab 06/08/23 Simethicone 40 mg/0.6 ml Drops 40 mg PO PCHS PRN #30 ml 06/08/23 [Mylicon Drops] bisacodyL [Dulcolax] 5 mg PO DAILY PRN #10 tab 06/08/23 Acetaminophen Tab [Tylenol] 1,000 mg PO Q6HR PRN #30 tablet 06/10/23 predniSONE 50 mg PO DAILY #5 tab 06/26/23 Allergies Allergy/AdvReac Type Severity Reaction Status Date / Time Penicillins Allergy Rash/Hives Verified 06/07/23 10:27 Sulfa (Sulfonamide Allergy Rash/Hives Verified 06/07/23 10:27 Antibiotics) vancomycin AdvReac Itching Verified 06/07/23 10:27 Paper tape AdvReac Rash/Hives Uncoded 06/07/23 10:27 Review of Systems ROS Statement: Those systems with pertinent positive or pertinent negative responses have been documented in the HPI. ROS Other: All systems not noted in ROS Statement are negative. Past Medical History Past Medical History: Atrial Flutter, GERD/Reflux, Hypertension, Osteoarthritis (OA), Seizure Disorder, Thyroid Disorder Additional Past Medical History / Comment(s): past hx. 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 for, hypothroidism, sinus problems, diverticulitis dec 2021 History of Any Multi-Drug Resistant Organisms: None Reported Past Surgical History: Back Surgery, Breast Surgery, Cholecystectomy, Heart Catheterization, Hernia Repair, Hysterectomy, Orthopedic Surgery, Tonsillectomy Additional Past Surgical History / Comment(s): laminectomy 1991; heart cath , ovarian cysts removed, right breast abscess 2020, hital hernia Past Anesthesia/Blood Transfusion Reactions: Postoperative Nausea & Vomiting (PONV) Additional Past Anesthesia/Blood Transfusion Reaction / Comment(s): one time episode of slow to wake up years ago Past Psychological History: No Psychological Hx Reported Smoking Status: Former smoker Past Alcohol Use History: Rare Past Drug Use History: None Reported - Past Family History Mother Family Medical History: No Reported History General Exam Limitations: no limitations General appearance: alert, in no apparent distress Head exam: Present: atraumatic, normocephalic, normal inspection Eye exam: Present: normal appearance, PERRL, EOMI. Absent: scleral icterus, conjunctival injection, periorbital swelling ENT exam: Present: normal exam, mucous membranes moist Neck exam: Present: normal inspection. Absent: tenderness, meningismus, lymphadenopathy Respiratory exam: Present: normal lung sounds bilaterally. Absent: respiratory distress, wheezes, rales, rhonchi, stridor Cardiovascular Exam: Present: regular rate, normal rhythm, normal heart sounds. Absent: systolic murmur, diastolic murmur, rubs, gallop, clicks GI/Abdominal exam: Present: soft, tenderness, hyperactive bowel sounds Extremities exam: Present: normal inspection, full ROM, normal capillary refill. Absent: tenderness, pedal edema, joint swelling, calf tenderness Back exam: Present: normal inspection Neurological exam: Present: alert, oriented X3 Psychiatric exam: Present: normal affect, normal mood Skin exam: Present: warm, dry, intact, normal color. Absent: rash Course Vital Signs 06/26/23 06/26/23 06/26/23 13:49 16:45 19:15 Temperature 97.8 F 97.6 F 98.2 F Pulse Rate 74 72 64 Respiratory 20 20 18 Rate Blood Pressure 107/74 128/80 117/74 O2 Sat by Pulse 99 98 100 Oximetry Medical Decision Making - Medical Decision Making Was pt. sent in by a medical professional or institution (, PA, [employer], urgent care, hospital, or long term...) When possible be specific @ -No Did you speak to anyone other than the patient for history (EMS, parent, family, police, friend...)? What history was obtained from this source @ -No Did you review nursing and triage notes (agree or disagree)? Why? @ -I reviewed and agree with nursing and triage notes Were old charts reviewed (outside hosp., previous admission, EMS record, old EKG, old radiological studies, urgent care reports/EKG's, long term records)? Report findings @ -No old charts were reviewed Differential Diagnosis (chest pain, altered mental status, abdominal pain women, abdominal pain men, vaginal bleeding, weakness, fever, dyspnea, syncope, headache, dizziness, GI bleed, back pain, seizure, CVA, palpatations, mental health, musculoskeletal)? @ -Differential Abdominal Pain Women: Appendicitis, Cholecystitis, diverticulosis, ischemic bowel, pancreatitis, hepatitis, UTI, gastroenteritis, AAA, incarcerated hernia, bowel obstruction, constipation, inflammatory bowel, hepatitis, peptic ulcer disease, splenic infarction, perforated viscus, vulvitis, ovarian torsion, PID, kidney stone, placenta abruption, this is not meant to be an all-inclusive list EKG interpreted by me (3pts min.). @ -None X-rays interpreted by me (1pt min.). @ -None done CT interpreted by me (1pt min.). @ -None done U/S interpreted by me (1pt. min.). @ -None done What testing was considered but not performed or refused? (CT, X-rays, U/S, labs)? Why? @ -None What meds were considered but not given or refused? Why? @ -None Did you discuss the management of the patient with other professionals (professionals i.e. , PA, [employer], lab, RT, psych nurse, social media coordinator, spa manager/esthetician, teacher, strike warfare/missile systems officer, transplant case manager)? Give summary @ -Discussed findings with Dr. Diaz, requesting another liter of fluids. Patient can be discharged home if improved after nausea and pain medication or observation if still symptomatic Was smoking cessation discussed for >3mins.? @ -No Was critical care preformed (if so, how long)? @ -No Were there social determinants of health that impacted care today? How? (Homelessness, low income, unemployed, alcoholism, drug addiction, tr ansportation, low edu. Level, literacy, decrease access to med. care, detention, rehab)? @ -No Was there de-escalation of care discussed even if they declined (Discuss DNR or withdrawal of care, Hospice)? DNR status @ -No What co-morbidities impacted this encounter? (DM, HTN, Smoking, COPD, CAD, Cancer, CVA, ARF, Chemo, Hep., AIDS, mental health diagnosis, sleep apnea, morbid obesity)? @ -None Was patient admitted / discharged? Hospital course, mention meds given and route, prescriptions, significant lab abnormalities, going to OR and other pertinent info. @ -Discharge. Patient presented to the emergency department for evaluation of abdominal pain. Patient under went hiatal hernia surgery around [address] Diaz. Laboratory studies obtained today. CBC shows normal WBC at 7.0, hemoglobin 13.5; normal coagulation studies; CMP essentially unremarkable. Lactic acid 0.9; UA shows no evidence for infectious process. CT abdomen pelvis was obtained which shows no acute process. Patient was provided 1 L normal saline in the emergency department along with medication for pain control. I spoke with Dr. Diaz who is comfortable with discharge of the patient in an office follow-up, requesting another liter of fluids for the patient. Patient was given another liter of fluids and reevaluated after pain medication. Patient advised on findings and conversation with Dr. Diaz, agreeable with discharge home. Patient stable at time of discharge. Case discussed with Dr. Howard. Undiagnosed new problem with uncertain prognosis? @ -No Drug Therapy requiring intensive monitoring for toxicity (Heparin, Nitro, Insulin, Cardizem)? @ -No Were any procedures done? @ -No Diagnosis/symptom? @ -Abdominal pain Acute, or Chronic, or Acute on Chronic? @ -Acute Uncomplicated (without systemic symptoms) or Complicated (systemic symptoms)? @ -Uncomplicated Side effects of treatment? @ -No Exacerbation, Progression, or Severe Exacerbation? @ -No Poses a threat to life or bodily function? How? (Chest pain, [place], [place], pneumonia, PE, COPD, DKA, ARF, appy, cholecystitis, CVA, Diverticulitis, Homicidal, Suicidal, threat to staff... and all critical care pts) @ -No - Lab Data Result diagrams: 06/26/23 14:35 06/26/23 14:35 Lab Results 06/26/23 06/26/23 06/26/23 Range/Units 14:35 14:35 14:35 WBC 7.0 (3.8-10.6) k/uL RBC 4.63 (3.80-5.40) m/uL Hgb 13.5 (11.4-16.0) gm/dL Hct 40.4 (34.0-46.0) % MCV 87.4 (80.0-100.0) fL MCH 29.2 (25.0-35.0) pg MCHC 33.4 (31.0-37.0) g/dL RDW 13.7 (11.5-15.5) % Plt Count 222 (150-450) k/uL MPV 8.4 Neutrophils % 58 % Lymphocytes % 31 % Monocytes % 7 % Eosinophils % 2 % Basophils % 0 % Neutrophils # 4.0 (1.3-7.7) k/uL Lymphocytes # 2.2 (1.0-4.8) k/uL Monocytes # 0.5 (0-1.0) k/uL Eosinophils # 0.1 (0-0.7) k/uL Basophils # 0.0 (0-0.2) k/uL PT 10.0 (10.0-12.5) sec INR 0.9 (<1.2) APTT 25.3 (22.0-30.0) sec Sodium 138 (137-145) mmol/L Potassium 4.0 (3.5-5.1) mmol/L Chloride 104 (98-107) mmol/L Carbon Dioxide 25 (22-30) mmol/L Anion Gap 9 mmol/L BUN 10 (7-17) mg/dL Creatinine 0.47 L (0.52-1.04) mg/dL Est GFR (CKD-EPI)AfAm >90 (>60 ml/min/1.73 sqM) Est GFR (CKD-EPI)NonAf >90 (>60 ml/min/1.73 sqM) Glucose 86 (74-99) mg/dL Plasma Lactic Acid Howard (0.7-2.0) mmol/L Calcium 9.4 (8.4-10.2) mg/dL Total Bilirubin 0.8 (0.2-1.3) mg/dL AST 31 (14-36) U/L ALT 19 (4-34) U/L Alkaline Phosphatase 63 (38-126) U/L Total Protein 6.8 (6.3-8.2) g/dL Albumin 3.9 (3.5-5.0) g/dL Amylase 37 (30-110) U/L Lipase 71 (23-300) U/L Urine Color Urine Appearance (Clear) Urine pH (5.0-8.0) Ur Specific [employer] (1.001-1.035) Urine Protein (Negative) Urine Glucose (UA) (Negative) Urine Ketones (Negative) Urine Blood (Negative) Urine Nitrite (Negative) Urine Bilirubin (Negative) Urine Urobilinogen (<2.0) mg/dL Ur Leukocyte Esterase (Negative) 06/26/23 06/26/23 Range/Units 14:35 16:26 WBC (3.8-10.6) k/uL RBC (3.80-5.40) m/uL Hgb (11.4-16.0) gm/dL Hct (34.0-46.0) % MCV (80.0-100.0) fL MCH (25.0-35.0) pg MCHC (31.0-37.0) g/dL RDW (11.5-15.5) % Plt Count (150-450) k/uL MPV Neutrophils % % Lymphocytes % % Monocytes % % Eosinophils % % Basophils % % Neutrophils # (1.3-7.7) k/uL Lymphocytes # (1.0-4.8) k/uL Monocytes # (0-1.0) k/uL Eosinophils # (0-0.7) k/uL Basophils # (0-0.2) k/uL PT (10.0-12.5) sec INR (<1.2) APTT (22.0-30.0) sec Sodium (137-145) mmol/L Potassium (3.5-5.1) mmol/L Chloride (98-107) mmol/L Carbon Dioxide (22-30) mmol/L Anion Gap mmol/L BUN (7-17) mg/dL Creatinine (0.52-1.04) mg/dL Est GFR (CKD-EPI)AfAm (>60 ml/min/1.73 sqM) Est GFR (CKD-EPI)NonAf (>60 ml/min/1.73 sqM) Glucose (74-99) mg/dL Plasma Lactic Acid Howard 0.9 (0.7-2.0) mmol/L Calcium (8.4-10.2) mg/dL Total Bilirubin (0.2-1.3) mg/dL AST (14-36) U/L ALT (4-34) U/L Alkaline Phosphatase (38-126) U/L Total Protein (6.3-8.2) g/dL Albumin (3.5-5.0) g/dL Amylase (30-110) U/L Lipase (23-300) U/L Urine Color Colorless Urine Appearance Clear (Clear) Urine pH 6.0 (5.0-8.0) Ur Specific [employer] Mdl >1.050 H (1.001-1.035) Urine Protein Negative (Negative) Urine Glucose (UA) Negative (Negative) Urine Ketones Negative (Negative) Urine Blood Negative (Negative) Urine Nitrite Negative (Negative) Urine Bilirubin Negative (Negative) Urine Urobilinogen <2.0 (<2.0) mg/dL Ur Leukocyte Esterase Negative (Negative) Disposition Clinical Impression: Abdominal pain Disposition: HOME SELF-CARE Condition: Stable Instructions (If sedation given, give patient instructions): Abdominal Pain (ED) Additional Instructions: Please follow up with Dr. Daiz. Do not take ibuprofen or other anti- inflammatory medications while taking steroid. Return to the emergency department for new or worsening symptoms. Prescriptions: predniSONE 50 mg PO DAILY #5 tab Is patient prescribed a controlled substance at d/c from ED?: No Referrals: Missy Mccullough MD [Primary Care Provider] - 1-2 days
[2023-06-26 15:01] LABS: ALT 19 U/L (4-34); African American GFR (CKD) >90 (>60 ml/min/1.73 sqM); Albumin 3.9 g/dL (3.5-5.0); Amylase 37 U/L (30-110); Anion Gap 9 mmol/L; Blood Urea Nitrogen 10 mg/dL (7-17); Calcium 9.4 mg/dL (8.4-10.2); Carbon Dioxide 25 mmol/L (22-30); Chloride 104 mmol/L (98-107); Glucose 86 mg/dL (74-99); Lipase 71 U/L (23-300); Non-African American GFR(CKD) >90 (>60 ml/min/1.73 sqM); Sodium 138 mmol/L (137-145); Total Bilirubin 0.8 mg/dL (0.2-1.3); Total Protein 6.8 g/dL (6.3-8.2)
[2023-06-26] MEDS: ONDANSETRON 4 MG/2 ML VIAL IVP STA (15:10)
[2023-06-26] MEDS: SODIUM CHLORIDE 0.9% 1,000 ML IV STA (15:10)
[2023-06-26 15:11] LABS: AST 31 U/L (14-36)
[2023-06-26 15:12] LABS: Alkaline Phosphatase 63 U/L (38-126); INR 0.9 (<1.2); Partial Thromboplastin Time 25.3 sec (22.0-30.0)
--- NOTE | 2023-06-26 15:18 | CT ---
EXAMINATION: CT ABDOMEN AND PELVIS WITH IV CONTRAST DATE OF EXAMINATION: 06/26/2023. COMPARISON: None available. INDICATION: Lower abdominal pain. PROCEDURE: Axial CT of the abdomen and pelvis was performed with contrast and sagittal and coronal reformatted images were performed. CT dose lowering techniques were used, to include: automated expos ure control, adjustment for patient size, and/or use of iterative reconstruction. 100 mL of Isovue 30 0 was given intravenously. FINDINGS: LOWER CHEST : The visualized lung bases are clear. There are no pleural or pericardial effusions. ABDOMEN: Liver and Biliary system: There are subcentimeter hypodensities within the liver that are too small to fully characterize. The liver otherwise appears unremarkable. Adrenal glands: Normal. Kidneys and ureters: Normal. Spleen: Normal. Pancreas: Normal. Gallbladder: Surgically absent. Lymph nodes, Peritoneum and mesentery: There is no mesenteric or retroperitoneal lymphadenopathy. Gastrointestinal tract: There are no dilated loops of bowel or free intraperitoneal air. The appe ndix is normal. There is mild sigmoid colonic diverticulosis without evidence of diverticulitis. Aorta/IVC: No aortic aneurysm. IVC normal. Abdominal wall: Normal. PELVIS: Fluid: There is no free fluid in the pelvis. Lymph Nodes: There is no pelvic or inguinal lymphadenopathy.. Urinary bladder: Normal. BONES: Multilevel degenerative disc and facet changes are seen throughout the spine. There are no ac [place] osseous abnormalities. ADDITIONAL SIGNIFICANT FINDINGS: Prior hysterectomy.. IMPRESSION: No acute process within the abdomen or pelvis.
[2023-06-26 16:46] LABS: Appearance,Urine Clear (Clear); Bilirubin,Urine Negative (Negative); Blood,Urine Negative (Negative); Color,Urine Colorless; Glucose,Urine (UA) Negative (Negative); Ketones,Urine Negative (Negative); Leukocyte Esterase,Urine Negative (Negative); Nitrite,Urine Negative (Negative); Protein,Urine Negative (Negative); Urobilinogen,Urine <2.0 mg/dL (<2.0)
[2023-06-26 17:12] LABS: Specific Gravity,Urine >1.050 (1.001-1.035)
[2023-06-26] MEDS: KETOROLAC 15 MG/ML 1 ML VIAL IVP STA (17:45)
[2023-06-26] MEDS: SODIUM CHLORIDE 0.9% 1,000 ML IV ONE (17:47)
[2023-06-26 19:28] VITALS: BP 117/74; PULSE 64; RESP 18; TEMP 98.2
== END 2023-06-26 19:20 | disposition home or self-care (01) ==
LOC: EC 13:47
DX: R10.32 Left lower quadrant pain (principal); Z87.891 Personal history of nicotine dependence; Z88.2 Allergy status to sulfonamides; Z88.0 Allergy status to penicillin; Z91.09 Other allergy status, other than to drugs and biological substances; Z88.8 Allergy status to other drugs, medicaments and biological substances; Z88.1 Allergy status to other antibiotic agents
CPT/HCPCS: 36415; 80053; 82150; 83605; 83690; 85025; 85610; 85730; 81003; 74177; 99284; 96374; 96375; 96361 ×4; J2405; J1885; Q9967

== ENCOUNTER 2024-07-07 09:18 | Day surgery (SDC) | payer MEDICARE ==
[~2024-07-07 09:18] MED LIST changes: +ALPRAZolam 0.25 MG TAB PO PRN; +ASPIRIN 325 MG TAB PO STA; +HEPARIN SODIUM,PORCINE (1 ML) 2,500 UNIT in SODIUM CHLORIDE 0.9% 250 ML IRRIGATION PRN; +HEPARIN SODIUM,PORCINE 10,000 UNIT in SODIUM CHLORIDE 0.9% 1,000 ML IRRIGATION PRN; -MIDAZOLAM 2 MG/2 ML VIAL IV PRN; +NITROGLYCERIN SL TABS 0.4 MG TAB SUBLINGUAL PRN
[2024-07-07] MEDS: ALPRAZolam 0.5 MG TAB PO PRN (09:36)
[2024-07-07 09:47] VITALS: RESP 16; TEMP 97.1
[2024-07-07] MEDS: IV FLUID CONTINUATION 1,000 ML IV ONE (09:49)
[2024-07-07] MEDS: SODIUM CHLORIDE 0.9% 1,000 ML in EMPTY BAG 1 BAG IV SCH (09:50)
[2024-07-07] MEDS: ASPIRIN 325 MG TAB PO ONE (10:14)
[2024-07-07] MEDS: LIDOCAINE 1% INJ 10MG/ML (20 ML MDV) SQ ONE (10:33)
[2024-07-07] MEDS: MIDAZOLAM 2 MG/2 ML VIAL IVP ONE (10:33)
[2024-07-07] MEDS: fentaNYL (PF) 50 MCG/1 ML VIAL IVP ONE (10:33)
[2024-07-07] MEDS: VERAPAMIL SYRINGE (5 MG/10 ML) INTRAARTER ONE ×2 (10:35→10:40)
[2024-07-07] MEDS: HEPARIN SODIUM 1,000 UN/ML (10ML VL) IV ONE (10:44)
[2024-07-07] MEDS: IOPAMIDOL-370 100ML BTL INJ ONE (10:49)
--- NOTE | 2024-07-07 11:24 | CC ---
CARDIAC CATHETERIZATION REPORT INDICATION: Shortness of breath with abnormal stress test. PROCEDURE NOTE: After obtaining informed consent, left heart catheterization and coronary angiogram were performed via the right radial artery using standard Amada catheters. The patient tolerated the procedure well without any obvious immediate complications. A TR band will be used for hemostasis. Right radial artery access was obtained using Seldinger technique, 6-[place] sheath was placed. Catheters and wires were floated into the ascending aorta under fluoroscopic guidance. The patient received verapamil and heparin per protocol. FINDINGS: 1. HEMODYNAMICS: Left ventricular end-diastolic pressure is 8 to 10 mm. There is no significant gradient across the aortic valve. 2. LEFT VENTRICULOGRAM: Left ventriculogram is not performed. 3. ANGIOGRAPHIC DATA: a.Right coronary artery: Right coronary artery is a large dominant vessel and is free of significant stenosis. b.Left main coronary artery: This is a normal-sized vessel and is free of disease, divides into left anterior descending coronary artery and circumflex coronary artery. c.LAD and its branches, circumflex coronary artery and its branches are free of significant stenosis. CONCLUSIONS: 1. Normal coronary arteries. 2. False-positive stress test. PLAN: The patient's management is going to be in the form of risk factor modification and medical therapy. MMODL / IJN: [id number] /
[2024-07-07 13:20] VITALS: BP 93/50; PULSE 70
== END 2024-07-07 14:45 | disposition home or self-care (01) ==
LOC: CATHCVL 09:18
PROVIDERS: ATTEND Internal Medicine Cardiovascular Disease
DX: R94.39 Abnormal result of other cardiovascular function study (principal); I10 Essential (primary) hypertension; J44.9 Chronic obstructive pulmonary disease, unspecified; E03.9 Hypothyroidism, unspecified; Z87.891 Personal history of nicotine dependence; E78.2 Mixed hyperlipidemia; Z79.51 Long term (current) use of inhaled steroids; Z79.890 Hormone replacement therapy
CPT/HCPCS: 93458; C1894; J2250; J2003; J1644; Q9967; J3010

== ENCOUNTER → 2024-09-21 | Outpatient (CLI) | payer MEDICARE ==
[2024-09-21 13:38] VITALS: BP 107/75; PULSE 63; RESP 16; TEMP 97.7
--- NOTE | 2024-09-23 07:33 | P.PAINPG ---
PQRS Measure Charge Sheet Comment: HISTORY OF PRESENT ILLNESS: A 59 yr old female as a referral from Dr Hopkins presents today w severe and chronic neck pain > 1 yr secondary to C5-C7 radiculopathy, spondylosis and facet arthropathy without myelopathy for evaluation. Pt states pain level is provoked at 7 /10 in intensity, constant, localized in the lower cervical spine, predominantly axial, sharp in character w occasional shooting pain towards the BL shoulders. Pain is provoked by lifting. Pain is alleviated by PT x 6 wks which provoked pain in Fall 2023, chiropractic treatments semi monthly x 3 mo which were ineffective in 2023, physician guided home stretches daily since Fall 2023, heat, ice, medications, repositioning and rest . Cervical disability score at 31. PMH: OA, aFlutter, Angina, GERD, Seizure Disorder, Hypothyroidism PSH: Lumbar laminectomy (1991), Breast Surgery, Cholecystectomy, Heart Catheterization (2015, 2024), Hiatal Hernia Repair, Hysterectomy, Ovarian Cystectomy, Tonsillectomy SH: Former tobacco user, No ETOH use, No illicit drug use FH: Mo- [place] All: See list Medications include Tramadol, Ibu REVIEW OF ORGAN SYSTEMS: CONSTITUTIONAL: No fevers or chills. No recent weight loss. NEUROLOGICAL: + numbness and tingling along the distal extremities. No seizure disorders or headaches. MUSCULOSKELETAL: + pain PSYCHIATRIC: Denies current depression or suicidal thoughts. Physical Examinations : Constitutional : Cooperative , not in acute distress . Neurologic : Cranial nerve II to XII intact. No focal neurological deficits. Psychiatric : alert & oriented x 3. Matching mood & appropriate affect. Judgment & insight intact. Musculoskeletal : Cervical Spine Motor strength in the deltoid and biceps: Normal right side. Normal Left side Motor strength biceps and the wrist extensors: Normal right side . Normal left side Motor strength in the triceps muscle: Normal right side. Normal left side Deep tendon reflexes: Normal at the biceps. Normal at Brachioradialis. Normal at triceps Vertebral body tenderness to deep palpation over C6 Cervical facet loading test: positive bilaterally Spurling test: positive bilaterally Neck distraction test: positive BL C6- C7 Dc sign: positive bilaterally Lumbar spine Motor strength lower extremities ,thigh and legs 5/5 Right side , 5/5 Left side Deep tendon reflexes : Normal Knee Jerk. Normal Ankle Jerk Vertebral body tenderness over Emery Test positive Lumbar facet Loading Test: positive Right / positive Left Range of motion of the lumbar spine Flexion 30 degrees, extension 10 degrees Straight Leg Raise test: Left/ Right positive at degrees Mushtaq test: positive right / positive left. Severe tenderness over the Sacroiliac joint on the Right / Left sides Gaenslen test: positive bilaterally Seated flexion test: positive bilaterally. Sacral spine : Severe tenderness over the Sacroiliac joint: right side / left side Range of motion: Flexion of the lumbar spine <60 degrees Range of motion: Extension of the lumbar spine <20 degrees Gaenslen's Test positive Mushtaq test: positive right side / left side Thigh Thrust Test Sacral Thrust Test Imaging: MRI non contrast cervical spine from 05/15/24 reviewed Plan: Recommendation of BIJAN C6-C7 #1. Risks, benefits of procedure discussed and patient verbalized understanding. Admits to anti- coagulant use or medical history of diabetes. Protocol for discontinuation/ continuation of medications terese procedure discussed. All questions answered. I have spent greater than 30 minutes on patient care today. Dr Marlow was available by phone for the evaluation of this patient. The time was used to review the medical records including relevant urine studies and Prescription history (MAPs), review of the available imaging, evaluation and examination of the patient, coordination of care with the medical staff and if applicable referring physicians, as well as creation of the medical record - Pain Location Bilateral Neck Non-Pharmacological Interventions: Home Exercise, Massage, Physical Therapy, Stretching, TENS Unit Pharmacological Interventions: PRN Medication Home Medications: Ambulatory Orders Levothyroxine Sodium [Synthroid] 112 mcg PO DAILY 06/08/20 Metoprolol Succinate (ER) [Toprol XL] 25 mg PO DAILY 07/02/24 Sertraline [Zoloft] 50 mg PO DAILY 07/02/24 Omeprazole 20 mg PO DAILY PRN 09/10/24 Progesterone, Micronized [Progesterone] 200 mg PO HS 09/10/24 Unk Vitamin B 1 tab PO DAILY 09/10/24 Unk Vitamin D 1 tab PO DAILY 09/10/24 estradioL 0.5 mg PO DAILY 09/10/24 Omeprazole [PriLOSEC] 40 mg PO DAILY #14 cap 09/14/24 Controlled Substance Measures - Controlled Substance Measures Is patient prescribed a controlled substance at discharge?: Yes When asked, does pt state using other controlled substances?: Yes If prescribed controlled substance>3 days was MAPS reviewed?: Prescribed <3 Days
== END ==
LOC: PNWHC3 13:11
PROVIDERS: ATTEND Specialist
DX: M25.511 Pain in right shoulder (principal); M54.2 Cervicalgia; Z88.0 Allergy status to penicillin; Z88.2 Allergy status to sulfonamides; Z88.1 Allergy status to other antibiotic agents
CPT/HCPCS: 99211

== ENCOUNTER → 2024-09-23 | Outpatient (CLI) | payer MEDICARE ==
[2024-09-23 17:01] VITALS: BP 116/67; PULSE 60; RESP 16; TEMP 98.3; BMI 46.5
--- NOTE | 2024-09-23 17:35 | P.BASOAP ---
Subjective Progress Note Date: 09/23/24 She has a pinched nerve C5-C7. She wants a sleeve. EGD reviewed. She is moving mid to late October. Wants surgery and steroid injections. Goal 14 pounds weight loss. 257 pounds. Objective - Vital Signs Vital signs: Vital Signs Temp 98.3 F 09/23/24 16:58 Pulse 60 09/23/24 16:58 Resp 16 09/23/24 16:58 BP 116/67 09/23/24 16:58 Pulse Ox FiO2 Intake & Output 09/22/24 09/23/24 09/23/24 18:59 06:59 18:59 Weight 122.924 kg Assessment/Plan Plan: Date: 09/23/24 Initial Weight: 116.573 kg Initial BMI: 44.1 Current Weight: 122.924 kg Current BMI: 46.5 Type of Surgery: Total Volume in Band: Previous Volume: Volume Removed: Volume Added: Band Size:
== END ==
LOC: BARWHC3 16:09
PROVIDERS: ATTEND Surgery Plastic and Reconstructive Surgery
DX: E66.01 Morbid (severe) obesity due to excess calories (principal); Z88.0 Allergy status to penicillin; Z88.1 Allergy status to other antibiotic agents; Z88.8 Allergy status to other drugs, medicaments and biological substances; Z68.42 Body mass index [BMI] 45.0-49.9, adult
CPT/HCPCS: 99211

== ENCOUNTER → 2024-09-28 | Outpatient (CLI) | payer MEDICARE ==
[2024-09-29 09:24] VITALS: BMI 46.1
== END ==
LOC: BARWHC3 13:04
PROVIDERS: ATTEND Surgery Plastic and Reconstructive Surgery
DX: E66.01 Morbid (severe) obesity due to excess calories (principal); Z71.3 Dietary counseling and surveillance; Z88.0 Allergy status to penicillin; Z88.8 Allergy status to other drugs, medicaments and biological substances
CPT/HCPCS: 97804; G0463; 99211